=== PATIENT | male | born 1960 | race Caucasian/White ===

== ENCOUNTER 2018-08-10 16:14 | Outpatient (CLI) | payer BC ==
--- NOTE | 2018-08-10 16:54 | RAD ---
Adult bone survey INDICATION: Multiple myeloma FINDINGS: There are multiple punctate regions of lucency involving the skull suspicious for myelomato us involvement. No discrete lucency is seen involving the thoracolumbar spine. There is age-indeterminate superior endplate compression abnormalities of the L1 and L2. No additional fractur es grossly evident. No suspicious osteolytic lesions are seen involving the appendicular skeleton. IMPRESSION: 1. Multiple lucencies involving the calvaria bilaterally suspicious for myelomatous involvement. 2. Age-indeterminate superior endplate compression abnormalities of L1 and L2.
== END 2018-08-10 16:15 | disposition home or self-care (01) ==
LOC: BICRAD 16:14
PROVIDERS: ATTEND Internal Medicine Hematology & Oncology
DX: C90.00 Multiple myeloma not having achieved remission (principal); R93.7 Abnormal findings on diagnostic imaging of other parts of musculoskeletal system
CPT/HCPCS: 36415; 77075; 80053; 82232; 82248; 83615; 83883; 84100; 84165; 84550; 86334

== ENCOUNTER 2018-08-15 08:42 | Day surgery (SDC) | payer BC ==
[2018-08-14 14:16] VITALS: BMI 28.7
[2018-08-15 09:19] LABS: PTT 27.9 SEC (22.9-36.1); Prothrombin Time 13.4 SEC (12.0-14.7)
[2018-08-15 10:05] VITALS: BP 131/89; TEMP 98.8
--- NOTE | 2018-08-15 11:21 | CT ---
CT GUIDED BONE BIOPSY AND BONE MARROW ASPIRATION: HISTORY: Patient with history of myeloma. TECHNIQUE/FINDINGS: Informed consent was obtained from the patient. The right iliac wing was visualized using CT guidance . The overlying skin was prepped and draped in the usual sterile manner. A 1% lidocaine solution was used to anesthetize overlying soft tissues. A small dermatotomy was made. A bone marrow 11-gauge needle was used and the right iliac bone was accessed. Bone marrow aspiration performed. This is followed by bone marrow biopsy. Specimens sent to pathology. Pathology is pending. Postprocedure, no complications encountered. Incidentally noted extensive colonic diverticulosis is present. IMPRESSION: Successful CT guided bone marrow aspiration and bone biopsy. Transcribed Date/Time: 08/15/2018 12:07 PM
== END 2018-08-15 12:05 | disposition home or self-care (01) ==
LOC: CT 08:42
PROVIDERS: ATTEND Internal Medicine Hematology & Oncology
PROC: 079T3ZX Drainage of Bone Marrow, Percutaneous Approach, Diagnostic (ICD-10-PCS; principal; 2018-08-15)
PROC: 07DR3ZX Extraction of Iliac Bone Marrow, Percutaneous Approach, Diagnostic (ICD-10-PCS; principal; 2018-08-15)
DX: C90.00 Multiple myeloma not having achieved remission (principal); K57.30 Diverticulosis of large intestine without perforation or abscess without bleeding; I10 Essential (primary) hypertension; E78.5 Hyperlipidemia, unspecified; Z90.79 Acquired absence of other genital organ(s); Z88.1 Allergy status to other antibiotic agents; Z79.51 Long term (current) use of inhaled steroids; Z79.899 Other long term (current) drug therapy
CPT/HCPCS: 20225; 36415; 77012; 85097; 85610; 85730; 88121; 88184; 88237; 88305; 88311; 88313; 88341; 88342; 88365

== ENCOUNTER 2018-08-18 09:00 | Outpatient (CLI) | payer BC ==
--- NOTE | 2018-08-18 15:42 | PET ---
Exam: PET CT skull to mid thigh COMPARISON: None HISTORY: Multiple myeloma TECHNIQUE: A PET/CT was performed from the skull to the mid thigh after administration of 12.5 millic uries of F-18 FDG. Evaluation was performed on a [employer] workstation. FINDINGS: SKELETON: Numerous hypermetabolic foci are present involving the axial and appendicular skeleton invo lving the right clavicular head, right scapular body, numerous vertebral bodies of the cervical, thoracic, and lumbar spine, notably the C3, T1, T5, T6 and L1 vertebral bodies. The L5 spinous proces s. Involvement of the osseous pelvis within the left ilium and sacrum bilaterally is present. There are multifocal hypermetabolic lesions of the left femur. Dominant hypermetabolic lesion is within the left ilium, SUV maximum 6.5. The above, numerous additional lesions range in SUV from borderline hypermetabolic at 2.8, to 5.[address] images used for attenuation correction show extensive colonic diverticulosis.. IMPRESSION: Extensive osseous hypermetabolic lesions involving the axial and appendicular skeleton, a s described above. Transcribed Date/Time: 08/18/2018 4:33 PM
== END 2018-08-18 09:01 | disposition home or self-care (01) ==
LOC: PET 09:00
PROVIDERS: ATTEND Internal Medicine Hematology & Oncology
DX: C90.00 Multiple myeloma not having achieved remission (principal); M89.9 Disorder of bone, unspecified; R93.7 Abnormal findings on diagnostic imaging of other parts of musculoskeletal system; R93.0 Abnormal findings on diagnostic imaging of skull and head, not elsewhere classified
CPT/HCPCS: 78816; A9552

== ENCOUNTER 2018-11-30 08:27 | Day surgery (SDC) | payer BC ==
[2018-11-30 08:47] LABS: #Basophils 0.1 thou/uL (0.0-0.2); #Eosinphils 0.1 thou/uL (0.0-0.7); #Monocytes 0.9 thou/uL (0.11-0.59); #Neutrophils 5.3 thou/uL (1.40-6.50); %Basophils 0.6 % (0.0-1.0); %Eosinophils 0.7 % (0.0-10.0); %Lymphocytes 32.1 % (21.0-51.0); %Monocytes 9.6 % (0.0-10.0); Hemoglobin 13.5 g/dL (14.0-18.0); Mean Corpuscular HGB CONC 34.8 g/dL (32.0-36.0); Mean Corpuscular Hemoglobin 33.1 pg (27.0-31.0); Mean Corpuscular Volume 95.1 fL (78.0-98.0); Mean Platelet Volume 6.6 fL (7.4-10.4); Platelet Count 276 thou/uL (130-400); RBC Distribution Width 12.8 % (11.5-14.5); Red Blood Cell (RBC) Count 4.07 mill/uL (4.70-6.10); White Blood Cell (WBC) Count 9.2 thou/uL (4.8-10.8)
[2018-11-30 08:52] LABS: PTT 25.5 SEC (22.9-36.1); Prothrombin Time 12.9 SEC (12.0-14.7)
[2018-11-30 09:41] VITALS: BMI 29.1
--- NOTE | 2018-11-30 13:24 | CT ---
CT GUIDED RIGHT ILIAC BONE MARROW ASPIRATION AND BIOPSY: CLINICAL HISTORY: Multiple myeloma. PROCEDURE: The procedure including the risks and complications were explained to the patient, and informed conse nt was obtained. The patient was placed on the CT scan table in the prone position. Conscious sedation for a total [id number] was performed, administered by the radiology nurse, with the patient consistently monitored throughout the duration of the exam in stable condition. Noncontrasted CT images were obtained through the pelvis. An area was marked overlying the right lori c bone, and the area was meticulously prepped and draped in usual sterile fashion. The skin and subcutaneous tissues were infiltrated with buffered 1% lidocaine for local anesthesia. After a small skin incision was made, an 11-gauge needle was advanced and positioning was confirmed w ith axial CT images. Approximately 9 milliliters of bone marrow aspirate was obtained. The needle was then further advanced, and a bone marrow biopsy was performed. The needle was removed, and hemost asis was achieved with direct pressure. The patient tolerated the procedure well and without immediate complication. The patient was transported to radiology nurses holding area for further nando toring prior to discharge. IMPRESSION: Technically successful percutaneous bone marrow aspiration and biopsy. Pathology results are pending.
== END 2018-11-30 12:00 | disposition home or self-care (01) ==
LOC: CT 08:27
PROVIDERS: ATTEND Internal Medicine Hematology & Oncology
PROC: 079T3ZX Drainage of Bone Marrow, Percutaneous Approach, Diagnostic (ICD-10-PCS; principal; 2018-11-30)
PROC: 07DR3ZX Extraction of Iliac Bone Marrow, Percutaneous Approach, Diagnostic (ICD-10-PCS; principal; 2018-11-30)
DX: C90.00 Multiple myeloma not having achieved remission (principal); C79.51 Secondary malignant neoplasm of bone; I10 Essential (primary) hypertension; Z88.1 Allergy status to other antibiotic agents
CPT/HCPCS: 20225; 36415; 77002; 85025; 85097; 85610; 85730; 88184; 88237; 88305; 88311; 88313; 88342; 88365

== ENCOUNTER 2019-04-13 08:43 | Day surgery (SDC) | payer BC ==
[2019-04-12 14:56] VITALS: BMI 26.6
[2019-04-13 09:11] LABS: PTT 28.1 SEC (22.9-36.1); Prothrombin Time 12.9 SEC (12.0-14.7)
[2019-04-13] MEDS ORDERED: Midazolam HCl 2 mg/2 ml Vial ONE (10:00)
[2019-04-13] MEDS ORDERED: Fentanyl 100 MCG/2 ML VIAL ONE (10:00)
[2019-04-13] MEDS ORDERED: Sodium Bicarbonate 2.5 MEQ/5 ML VIAL ONE (10:00)
--- NOTE | 2019-04-13 11:46 | CT ---
CT GUIDED RIGHT ILIAC BONE MARROW ASPIRATION AND BIOPSY: CLINICAL HISTORY: Multiple myeloma post bone marrow transplant in December 2018. Patient also has his tory of prostate cancer. PROCEDURE: The procedure including the risks and complications were explained to the patient, and informed conse nt was obtained. The patient was placed on the CT scan table in the prone position. Conscious sedation was performed with the intravenous administration of fentanyl and Versed for a total [id number], administered by the radiology nurse, with the patient consistently monitored throughout the duration of the exam in stable condition. Noncontrasted CT images were obtained through the pelvis. An area was marked overlying the RIGHT lori c bone, and the area was meticulously prepped and draped in usual sterile fashion. The skin and subcutaneous tissues were infiltrated with buffered 1% lidocaine for local anesthesia. After a small skin incision was made, an 11-gauge needle was advanced and positioning was confirmed w ith axial CT images. Approximately 10 milliliters of bone marrow aspirate was obtained. The needle was then further advanced, and a bone marrow biopsy was performed. The needle was removed, and hemost asis was achieved with direct pressure. The patient tolerated the procedure well and without immediate complication. The patient was transported to radiology nurses holding area for further nando toring prior to discharge. IMPRESSION: Technically successful percutaneous bone marrow aspiration and biopsy. Pathology results are pending.
[2019-04-13 12:33] VITALS: BP 132/82; TEMP 98.4
== END 2019-04-13 12:20 | disposition home or self-care (01) ==
LOC: RAD 08:43
PROVIDERS: ATTEND Internal Medicine Hematology & Oncology
PROC: 07DR3ZX Extraction of Iliac Bone Marrow, Percutaneous Approach, Diagnostic (ICD-10-PCS; principal; 2019-04-13)
DX: C90.00 Multiple myeloma not having achieved remission (principal); I10 Essential (primary) hypertension; E78.5 Hyperlipidemia, unspecified; Z85.46 Personal history of malignant neoplasm of prostate; Z79.899 Other long term (current) drug therapy; Z88.1 Allergy status to other antibiotic agents; Z94.89 Other transplanted organ and tissue status
CPT/HCPCS: 20225; 36415; 77012; 85097; 85610; 85730; 88121; 88184; 88237; 88305; 88311; 88313; J2250; J3010

== ENCOUNTER 2019-04-26 10:20 | Outpatient (CLI) | payer BC ==
--- NOTE | 2019-04-26 13:24 | PET ---
Nuclear medicine FDG PET/CT whole body: (Positron emission tomography and computed tomography) DATE: 04/26/2019 HISTORY: 58-year-old male with multiple myeloma having achieved remission. Restaging, evaluate for response af ter bone marrow transplant. COMPARISON: 08/18/2018 TECHNIQUE: IV injection of F-18 fluorodeoxyglucose (FDG) dose: 16.8 mCi. PET scan and attenuation correction CT performed from vertex of head to bottom of feet. FINDINGS: SUV (standard uptake values) numbers given are maximum SUVs. QCLR used. There are numerous FDG-avid osseous lesions scattered in the axial and appendicular skeleton, have al l resolved. For example, the approximately 1.5 x 2.5 cm osteolytic lesion in the anterior aspect of right iliac w ing previous had SUV of 4.7, currently 1.6. This lesion is still osteolytic. However, many of the previously hypermetabolic lesions that were all osteolytic, have now become osteoblastic, sclerotic, representing treated lesions. There are currently no abnormally FDG avid suspicious skeletal metastatic lesions anywhere in the axi al or appendicular skeleton. A single small focus of SUV 3.1 in the subcutaneous fat of the right arm is consistent with injection site. Otherwise, no suspicious hypermetabolic lesions are identified in the soft tissues of the head, neck, chest, abdomen, pelvis, rest of the upper extremities, and rest of the lower extremities. IMPRESSION: Complete response to therapy.
== END 2019-04-26 10:21 | disposition home or self-care (01) ==
LOC: PET 10:20
PROVIDERS: ATTEND Internal Medicine Hematology & Oncology
DX: C90.00 Multiple myeloma not having achieved remission (principal); C79.51 Secondary malignant neoplasm of bone
CPT/HCPCS: 78816; A9552

== ENCOUNTER 2019-12-27 11:48 | Outpatient (CLI) | payer BC ==
--- NOTE | 2019-12-27 14:16 | PET ---
PET CT: HISTORY: 59-year-old male with multiple myeloma, not having achieved remission. TECHNIQUE: PET scanning with CT attenuation correction was performed from the vertex through the feet following the intravenous administration of 12.8 mCi F18-FDG in the right antecubital fossa. COMPARISON: PET CT dated 04/26/2019. FINDINGS: Numerous new hypermetabolic lesions are seen involving the axilla and the proximal appendicular skele ton. No jero hypermetabolism is seen in the neck, chest, axilla, abdomen, and pelvis, inguinal or poplite al regions. No hypermetabolic pulmonary nodules, liver, adrenal, splenic, or pancreatic lesions are seen. There is physiologic activity in the GI and tracts and brain. The CT scan used for attenuation correction demonstrates no evidence of pleural effusions or ascites. IMPRESSION: Extensive active osseous hypermetabolic lesions in the axial and appendicular skeleton, new since . POS: CLAY
== END 2019-12-27 11:49 | disposition home or self-care (01) ==
LOC: PET 11:48
PROVIDERS: ATTEND Internal Medicine Hematology & Oncology
DX: C90.00 Multiple myeloma not having achieved remission (principal); M89.9 Disorder of bone, unspecified
CPT/HCPCS: 78816; A9552

== ENCOUNTER 2019-12-28 08:41 | Day surgery (SDC) | payer BC ==
[2019-12-28 09:12] LABS: INR-International Normal Ratio 0.9; Prothrombin Time 12.6 sec (12.0-14.7)
[2019-12-28 09:13] LABS: PTT 28.9 sec (22.9-36.1)
[2019-12-28 09:17] LABS: #Eosinphils 0.1 thou/uL (0.0-0.7); #Lymphocytes 0.8 thou/uL (1.20-3.40); #Monocytes 0.5 thou/uL (0.11-0.59); #Neutrophils 2.3 thou/uL (1.40-6.50); %Basophils 1.1 % (0.0-1.0); %Eosinophils 2.1 % (0.0-10.0); %Lymphocytes 21.3 % (21.0-51.0); %Monocytes 12.5 % (0.0-10.0); Hemoglobin 11.1 g/dL (14.0-18.0); Mean Corpuscular HGB CONC 36.1 g/dL (32.0-36.0); Mean Corpuscular Hemoglobin 36.6 pg (27.0-31.0); Mean Platelet Volume 8.3 fL (7.4-10.4); Platelet Count 96 thou/uL (130-400); RBC Distribution Width 13.8 % (11.5-14.5); Red Blood Cell (RBC) Count 3.03 mill/uL (4.70-6.10); White Blood Cell (WBC) Count 3.6 thou/uL (4.8-10.8)
--- NOTE | 2019-12-28 11:37 | CT ---
CT Deep Bone Perc Biopsy History: Myeloma Comparison: Bone marrow biopsy March 2019 Findings: Patient was brought to the CT suite. Questions were answered. Informed consent obtained. Ti meout performed. Patient's left posterior pelvis was prepped and draped in normal sterile fashion. Using CT guidance a fter adequate local anesthesia a total of 10 mL of bone marrow aspirate was removed and a 1 cm 10-gauge core was obtained. Patient tolerated procedure well without complication. 0.5 mg of Versed and 25 mcg of fentanyl was administered to the patient via the supervising nurse. Impression: 1. Technically successful bone marrow biopsy. 2. Incidental note of superior endplate compression deformities of L1 and L2 on the german tutor image. 3. Total moderate sedation supervision of 30 minutes.
--- NOTE | 2020-01-01 11:09 | CT ---
CT Deep Bone Perc Biopsy History: Myeloma Comparison: Bone marrow biopsy March 2019 Findings: Patient was brought to the CT suite. Questions were answered. Informed consent obtained. Ti meout performed. Patient's left posterior pelvis was prepped and draped in normal sterile fashion. Using CT guidance a fter adequate local anesthesia a total of 10 mL of bone marrow aspirate was removed and a 1 cm 10-gauge core was obtained. Patient tolerated procedure well without complication. 0.5 mg of Versed and 25 mcg of fentanyl was administered to the patient via the supervising nurse. Impression: 1. Technically successful bone marrow biopsy. 2. Incidental note of superior endplate compression deformities of L1 and L2 on the electrical prospecting observer image. 3. Total moderate sedation supervision of 30 minutes. Transcribed Date/Time: 01/01/2020 11:08 AM
== END 2019-12-28 11:50 | disposition home or self-care (01) ==
LOC: CT 08:41
PROVIDERS: ATTEND Internal Medicine Hematology & Oncology
PROC: 079T3ZX Drainage of Bone Marrow, Percutaneous Approach, Diagnostic (ICD-10-PCS; principal; 2019-12-28)
PROC: 07DR3ZX Extraction of Iliac Bone Marrow, Percutaneous Approach, Diagnostic (ICD-10-PCS; principal; 2019-12-28)
DX: C90.00 Multiple myeloma not having achieved remission (principal); C79.51 Secondary malignant neoplasm of bone; I10 Essential (primary) hypertension; E78.00 Pure hypercholesterolemia, unspecified; Z88.1 Allergy status to other antibiotic agents; Z85.46 Personal history of malignant neoplasm of prostate
CPT/HCPCS: 20225; 77002; 85025; 85097; 85610; 85730; 88121; 88184; 88237; 88305; 88311; 88313

== ENCOUNTER 2020-02-20 08:51 | Day surgery (SDC) | payer BC ==
[2020-02-20] MEDS ORDERED: Acetaminophen 500 MG TAB PO PRN (09:03)
[2020-02-20] MEDS ORDERED: diphenhydrAMINE 25 MG CAP PO PRN (09:03)
[2020-02-20 14:20] VITALS: BP 125/82; TEMP 98
== END 2020-02-20 14:21 | disposition home or self-care (01) ==
LOC: ONC/OP 08:51
PROVIDERS: ATTEND Internal Medicine Hematology & Oncology
PROC: 30233N1 Transfusion of Nonautologous Red Blood Cells into Peripheral Vein, Percutaneous Approach (ICD-10-PCS; principal; 2020-02-20)
DX: D64.9 Anemia, unspecified (principal); Z88.1 Allergy status to other antibiotic agents
CPT/HCPCS: 36430; 86850; 86870; 86900; 86901; 86922; P9016; Q0163

== ENCOUNTER 2020-02-25 12:27 | Inpatient (IN) | payer BC ==
[2020-02-25] MEDS ORDERED: Ondansetron PF 4 MG/2 ML Vial ONE (13:00)
[2020-02-25] MEDS ORDERED: Ibuprofen 200 MG TAB ONE (13:00)
[2020-02-25] MEDS ORDERED: Acetaminophen 500 MG TAB ONE (13:00)
[2020-02-25 13:28] LABS: Mean Corpuscular HGB CONC 34.4 g/dL (32.0-36.0); Mean Corpuscular Hemoglobin 34.4 pg (27.0-31.0); Mean Platelet Volume 9.7 fL (7.4-10.4); Platelet Count 48 thou/uL (130-400); RBC Distribution Width 15.8 % (11.5-14.5); Red Blood Cell (RBC) Count 2.33 mill/uL (4.70-6.10); White Blood Cell (WBC) Count 1.2 thou/uL (4.8-10.8)
[2020-02-25 13:47] LABS: Anisocytosis SLIGHT = 6-15 cells (100X) (0-5/hpf); Band 8 % (5-11); Eosinophils 16 % (0-10); Lymphocytes 29 % (21-51); MDiff Complete? YES; Macrocytosis SLIGHT = 6-15 cells (100X) (0-5/hpf); Monocytes 8 % (0-10); Neutrophil 39 % (42-75); Platelet Morphology Comment Appears Decreased; Polychromasia SLIGHT = 2-3 cells (100X) (0-2/hpf); Reflex for Review?? YES
[2020-02-25] MEDS ORDERED: Fentanyl 100 MCG/2 ML VIAL ONE (13:52)
[2020-02-25 13:53] LABS: ALT (SGPT) 102 U/L (8-55); AST (SGOT) 58 U/L (5-34); Albumin 3.4 g/dL (3.4-4.8); Alkaline Phosphatase 128 U/L (40-110); Anion Gap 17 mmol/L (10-20); BUN (Urea Nitrogen) 12 mg/dL (8.4-25.7); Bilirubin, Total 0.6 mg/dL (0.2-1.2); Calc. Creatinine Clearance 0 mL/min (70-130); Calcium 8.4 mg/dL (7.8-10.44); Carbon Dioxide 19 mmol/L (23-31); Chloride 100 mmol/L (98-107); Globulin 4.5 g/dL (2.4-3.5); Glucose 130 mg/dL (80-115); Potassium 4.1 mmol/L (3.5-5.1); Protein, Total 7.9 g/dL (5.8-8.1); Sodium 132 mmol/L (136-145)
--- NOTE | 2020-02-25 14:05 | RAD ---
EXAM: CHEST ONE VIEW HISTORY: Fever and shortness of breath. COMPARISON: None FINDINGS: Cardiac silhouette is magnified by projection but does appear at the upper limits normal to borderlin e enlarged. Pulmonary vasculature is within normal limits. The lungs are clear. The osseous structures are intact. IMPRESSION: 1. No acute cardiopulmonary process. 2. Cardiac silhouette is at the upper limits of normal to borderline enlarged.
[2020-02-25 14:10] LABS: Bacteria/HPF None Seen HPF (None Seen); Bilirubin Negative (Negative); Blood, Urine Negative (Negative); Clarity Clear (Clear); Glucose, Urine (Dipstick) Normal (Negative); Ketone, Urine Negative (Negative); Leukocyte Negative Leu/uL (Negative); Mucous/LPF 2+ LPF (<2+); Nitrite Negative (Negative); Protein, Urine (Dipstick) 50 mg/dL (Neg-Trace); RBC/HPF 0-3 HPF (0-3); Specific Gravity, Urine 1.031 (1.002-1.036); Squamous Epithelial 0-3 HPF (0-3); Urobilinogen Normal mg/dL (Less than 2); WBC/HPF 0-3 HPF (0-3); pH, Urine 5.5 (5.0-9.0)
[2020-02-25] MEDS ORDERED: Cefepime 2 GM VIAL ONE (14:38)
[2020-02-25 15:16] LABS: SARS-CoV-2 NAA Rapid Test Not Detected (NotDetected)
[2020-02-25] MEDS ORDERED: Senokot S 8.6-50 MG TAB PO PRN ×2 (16:44→16:53)
[2020-02-25] MEDS ORDERED: Ondansetron PF 4 MG/2 ML Vial IVP PRN (16:44)
[2020-02-25] MEDS ORDERED: Ondansetron ODT 4 MG TAB PO PRN (16:44)
[2020-02-25] MEDS ORDERED: Acetaminophen 650 MG Suppository PR PRN (16:44)
[2020-02-25] MEDS ORDERED: HYDROcodone/Acetaminophen 7.5/325 mg Tablet PO PRN ×2 (16:44)
[2020-02-25] MEDS ORDERED: Guaifenesin DM 100-10/5 ML UDCUP PO PRN (16:44)
[2020-02-25 16:58] LABS: Lactic Acid 1.8 mmol/L (0.5-2.2)
--- NOTE | 2020-02-25 18:05 | HP ---
PRIMARY CARE PHYSICIAN: Dr. Damon. PRIMARY ONCOLOGIST: Dr. Jean. CHIEF COMPLAINT: Fatigue. HISTORY OF PRESENT ILLNESS: This is a 59-year-old white male with a known history of multiple myeloma, on chemotherapy. He switched chemotherapy agents about 2 months ago and has felt very fatigued ever since. He says this has gotten worse probably over the last 1 to 2 weeks. He has had decreased appetite over the last week. He has not been able to eat or drink much mostly due to loss of appetite, not feeling thirsty, also has not been able to drink his typical beer or mixed drink daily. He is not certain if he is having fevers at home, was not really feeling febrile, but was found to have a temperature of 101 in the emergency room. The patient did go to Dr. Jean's office today. Due to his severe fatigue and lab results in the clinic, he was sent over here to the emergency room for evaluation. Here, he was found to be febrile and neutropenic. No specific source identified. The patient had to have blood cultures drawn and was started on cefepime and vancomycin. He was given Tylenol and now feels significantly better with his temperature having returned to normal. REVIEW OF SYSTEMS: CONSTITUTIONAL: See HPI. EYES: He has some chronic blurred vision from his Lyrica but no new changes. No double vision. ENT: No congestion, drainage, or sore throat. CARDIOVASCULAR: No chest pain. No palpitations or racing heart. He does have a little bit of dyspnea on exertion from his anemia from the chemotherapy, but that is not new. PULMONARY: No coughing. No shortness of breath at rest. No wheezing. CARDIOVASCULAR: No abdominal pain. No nausea or vomiting, but he has had decreased appetite. No diarrhea. He does get constipated regularly and has to take 3 stool softeners nightly while on his morphine to keep a regular bowel movement. GENITOURINARY: No dysuria or hematuria. MUSCULOSKELETAL: No specific muscle aches or joint pains. NEUROLOGIC: No numbness, tingling, or focal weakness. Just generalized weakness. PAST MEDICAL HISTORY: 1. Multiple myeloma, sees Dr. Jean and has been on chemotherapy for it. 2. Hypothyroidism. 3. Hyperlipidemia. 4. Possible high blood pressure. He is on a low dose of lisinopril. 5. Chronic pain from the multiple myeloma, on chronic opiate therapy. PAST SURGICAL HISTORY: Robotic prostatectomy in 2013. SOCIAL HISTORY: No tobacco or illicit drug use. The patient typically drinks every day. 1 to 3 drinks of either beer or whiskey or wine. Has not done this for over a week. The patient is a full code. Should he be incapacitated, his would be his medical decision maker. Her name is Nichelle Newman FAMILY HISTORY: Father at a younger age of a heart valve failure. ALLERGIES: NITROFURANTOIN. CURRENT MEDICATIONS: 1. Lyrica 300 mg twice a day. 2. Valtrex 500 mg twice a day. 3. Singulair 10 mg daily. 4. Lisinopril 10 mg daily. 5. Levothyroxine 75 mcg daily. 6. Singulair 10 mg daily. 7. Crestor 20 mg daily. 8. Morphine extended release 30 mg twice a day. 9. Wftd-coa-zrgbboi laxative 3 tablets at night. PHYSICAL EXAMINATION: VITAL SIGNS: Blood pressure 100/52, pulse 73, respirations 20, temperature 98.8, O2 saturation 99% on room air. GENERAL: This is a well-developed, well-nourished white male, in no acute distress. HEENT EXAM: Pupils are equal, round, and reactive to light. Oropharynx is clear without lesions, erythema, or exudate. NECK: Supple. No lymphadenopathy. No thyroid nodules or enlargement. No JVD. HEART: Regular rate and rhythm. No murmurs, rubs, or gallops. LUNGS: Clear to auscultation bilaterally. No wheezes, crackles, or rhonchi. ABDOMEN: Soft, nontender to palpation. Normoactive bowel sounds. No hepatosplenomegaly or other masses. EXTREMITIES: No clubbing, cyanosis, or edema. SKIN: No rashes or other lesions noted. NEUROLOGIC: The patient moves all extremities equally. No facial droop. PSYCHIATRIC: Alert and oriented x3. Normal mood and affect. LABORATORY DATA: White blood cell count 1.2 with 39% neutrophils, 8% bands, hemoglobin 8.0, hematocrit 23.2, platelet count 48,000. Complete metabolic panel is notable for sodium of 132, carbon dioxide of 19, and glucose of 130, AST of 58, ALT of 102, alkaline phosphatase of 128. The rest is normal. Lactic acid was initially 3.0, down to 1.8 after fluids in the emergency room. Urinalysis was negative for infection. The rapid influenza A and influenza B and COVID PCR were all negative. Chest x-ray: I did review the chest x-ray done in the emergency room along with the radiologist's report, clear lung guillen, no acute cardiopulmonary process. EKG done in the emergency room shows normal sinus rhythm with no significant ST-segment changes. Normal EKG. ASSESSMENT: 1. Neutropenic fever. The patient had blood cultures and urine culture done in the emergency room and has been started on broad-spectrum antibiotics. We will continue cefepime and give vancomycin while awaiting culture results. We will consult Dr. Jean in the morning. 2. Multiple myeloma, on chemotherapy. We will continue his morphine for pain control. 3. HTN. We will hold the patient's lisinopril due to below normal blood pressure right now, and we will monitor closely. 4. Hypothyroidism. Resume the patient's levothyroxine. 5. Hyperlipidemia. We will resume the patient's statin. 6. Deep venous thrombosis prophylaxis. We will put the patient on sequential compression devices while in bed. We will hold on Lovenox due to low platelet count. 7. Gastrointestinal prophylaxis. We will put the patient on Pepcid twice a day. CODE STATUS: The patient is a full code. Should he be incapacitated, his would be his medical decision maker. Job ID: [id number] [facility]
[2020-02-25] MEDS: valACYclovir 500 MG TAB PO SCH (20:35)
[2020-02-25] MEDS: Vancomycin HCl 1.75 GM in Sodium Chloride 0.9% 500 ML IVPB SCH (20:35)
[2020-02-25] MEDS: Pregabalin 75 MG CAP PO SCH (20:35)
[2020-02-25] MEDS: Rosuvastatin 20 MG TAB PO SCH (20:36)
[2020-02-25] MEDS: Famotidine 20 MG TAB PO SCH (20:36)
[2020-02-25] MEDS: Morphine ER 30 MG TAB PO SCH (20:36)
[2020-02-25] MEDS: Senokot S 8.6-50 MG TAB PO SCH (20:37)
[2020-02-25] MEDS ORDERED: valACYclovir 500 MG TAB PO SCH (21:00)
[2020-02-25] MEDS ORDERED: Vancomycin HCl 1 GM in Sodium Chloride 0.9% 250 ML 250 ML IVPB SCH (21:00)
[2020-02-26] MEDS: Acetaminophen 325 MG TAB PO PRN ×2 (03:55→17:23)
[2020-02-26] MEDS: Cefepime 2 GM in Sodium Chloride 0.9% 100 ML IVPB SCH ×2 (03:55→15:58)
[2020-02-26] MEDS: Levothyroxine Sodium 75 MCG TAB PO SCH (05:02)
[2020-02-26 05:08] LABS: White Blood Cell (WBC) Count 0.9 thou/uL (4.8-10.8)
[2020-02-26 05:14] LABS: Anion Gap 12 mmol/L (10-20); BUN (Urea Nitrogen) 9 mg/dL (8.4-25.7); Calc. Creatinine Clearance 136 mL/min (70-130); Calcium 7.6 mg/dL (7.8-10.44); Carbon Dioxide 22 mmol/L (23-31); Chloride 105 mmol/L (98-107); Glucose 99 mg/dL (80-115); Potassium 3.9 mmol/L (3.5-5.1); Sodium 135 mmol/L (136-145)
[2020-02-26 05:44] LABS: Hemoglobin 6.7 g/dL (14.0-18.0); Lymphocytes 56 % (21-51); MDiff Complete? YES; Mean Corpuscular HGB CONC 34.6 g/dL (32.0-36.0); Mean Corpuscular Hemoglobin 35.5 pg (27.0-31.0); Mean Platelet Volume 9.7 fL (7.4-10.4); Monocytes 12 % (0-10); Neutrophil 32 % (42-75); Platelet Count 38 thou/uL (130-400); Platelet Morphology Comment Appears Decreased; RBC Distribution Width 15.9 % (11.5-14.5); Red Blood Cell (RBC) Count 1.88 mill/uL (4.70-6.10)
--- NOTE | 2020-02-26 07:32 | PDOC.HOSPP ---
- Subjective Encounter Date: 02/26/20 Encounter Time: 10:00 Subjective: Patient feeling much better today. Had a low grade fever this AM. Fatigue improved. Eating better. at bedside. - Objective Vital Signs & Weight: Vital Signs (12 hours) Temp Pulse Resp BP Pulse Ox 02/26/20 05:03 99.1 F 02/26/20 04:00 100.4 F H 70 16 103/56 L 98 02/26/20 03:06 98 02/25/20 23:05 98.7 F 74 18 135/62 97 02/25/20 20:00 99.2 F 73 16 111/59 L 98 Weight Weight 180 lb I&O: 02/25/20 02/26/20 02/27/20 06:59 06:59 06:59 Intake Total 1120 Balance 1120 Result Diagrams: 02/26/20 04:19 02/26/20 04:19 Hospitalist ROS - Review of Systems Constitutional: reports: fever. denies: chills Respiratory: denies: cough, shortness of breath Cardiovascular: denies: chest pain, palpitations Gastrointestinal: denies: nausea, vomiting, abdominal pain Genitourinary: denies: dysuria, hematuria Musculoskeletal: denies: neck pain, back pain - Medication Medications: Active Medications Generic Name Dose Route Start Last Admin Trade Name Castilloq PRN Reason Stop Dose Admin Acetaminophen 650 mg 02/25/20 16:44 02/26/20 03:55 Acetaminophen 325 Mg Tab PO 650 mg Q4H PRN Administration Headache/Fever/Mild Pain (1-3) Famotidine 20 mg 02/25/20 21:00 02/25/20 20:36 Famotidine 20 Mg Tab PO 20 mg BID AMAURI Administration Cefepime HCl 2 gm/ Sodium 100 mls @ 200 mls/hr 02/26/20 03:00 02/26/20 03:55 Chloride IVPB 100 mls 0300,1500 AMAURI Administration Vancomycin HCl 1.75 gm/ Sodium 500 mls @ 250 mls/hr 02/25/20 20:00 02/25/20 20:35 Chloride IVPB 500 mls 0800,2000 AMAURI Administration Levothyroxine Sodium 75 mcg 02/26/20 06:00 02/26/20 05:02 Levothyroxine Sodium 75 Mcg Tab PO 75 mcg 0600 AMAURI Administration Morphine Sulfate 30 mg 02/25/20 21:00 02/25/20 20:36 Morphine Er 30 Mg Tab PO 30 mg Q12HR AMAURI Administration Pregabalin 300 mg 02/25/20 21:00 02/25/20 20:35 Pregabalin 75 Mg Cap PO 300 mg BID AMAURI Administration Rosuvastatin Calcium 20 mg 02/25/20 21:00 02/25/20 20:36 Rosuvastatin 20 Mg Tab PO 20 mg HS AMAURI Administration Senna/Docusate Sodium 3 tab 02/25/20 21:00 02/25/20 20:37 Senokot S 8.6-50 Mg Tab PO 3 tab HS AMAURI Administration Valacyclovir HCl 500 mg 02/25/20 21:00 02/25/20 20:35 Valacyclovir 500 Mg Tab PO 500 mg BID AMAURI Administration - Exam General Appearance: NAD, awake alert ENT: moist mucosa Heart: RRR, no murmur, no gallops, no rubs Respiratory: CTAB, no wheezes, no rales, no ronchi Gastrointestinal: soft, non-tender, non-distended, normal bowel sounds Extremities: no edema Psychiatric: normal affect, normal behavior, A&O x 3 Hosp A/P (1) Neutropenic fever Code(s): D70.9 - NEUTROPENIA, UNSPECIFIED; R50.81 - FEVER PRESENTING WITH COND ITIONS CLASSIFIED ELSEWHERE Status: Acute (2) Sepsis Code(s): A41.9 - SEPSIS, UNSPECIFIED ORGANISM Status: Acute (3) Multiple myeloma Code(s): C90.00 - MULTIPLE MYELOMA NOT HAVING ACHIEVED REMISSION Status: Chronic Qualifiers: Multiple myeloma remission status: not in remission Qualified Code(s): C90.00 - Multiple myeloma not having achieved remission (4) Pancytopenia due to antineoplastic chemotherapy Code(s): D61.810 - ANTINEOPLASTIC CHEMOTHERAPY INDUCED PANCYTOPENIA; T45.1X5A - ADVERSE EFFECT OF ANTINEOPLASTIC AND IMMUNOSUP DRUGS, INIT Status: Acute (5) HTN (hypertension) Code(s): I10 - ESSENTIAL (PRIMARY) HYPERTENSION Status: Chronic (6) Hypothyroidism Code(s): E03.9 - HYPOTHYROIDISM, UNSPECIFIED Status: Chronic (7) HLD (hyperlipidemia) Code(s): E78.5 - HYPERLIPIDEMIA, UNSPECIFIED Status: Chronic - Plan Patient admitted with neutropenic fever and sepsis syndrome while on chemotherapy for multiple myeloma. He is on Cefepime and Vanc. since 02/25/2020. Dr. Jean consulted this morning. Neutropenic precautions. Holding pharmacologic DVT prophylaxis due to thrombocytopenia. Anemia worse this morning, getting 1 unit PRBC transfusion. GI proph: Pepcid
[2020-02-26] MEDS: Morphine ER 30 MG TAB PO SCH ×2 (08:40→20:33)
[2020-02-26] MEDS: Vancomycin HCl 1.75 GM in Sodium Chloride 0.9% 500 ML IVPB SCH ×2 (08:57→21:45)
[2020-02-26] MEDS: valACYclovir 500 MG TAB PO SCH ×2 (08:58→20:33)
[2020-02-26] MEDS: Famotidine 20 MG TAB PO SCH ×3 (08:58→20:39)
[2020-02-26] MEDS: Montelukast Sodium 10 mg Tablet PO SCH (08:58)
[2020-02-26] MEDS: Pregabalin 75 MG CAP PO SCH ×2 (08:59→20:33)
[2020-02-26] MEDS ORDERED: FLU VACC QS2020-21(6MOS UP)/PF 60 MCG/0.5 ML SYRINGE IM ONE (09:00)
[2020-02-26] MEDS ORDERED: Prevnar 13-Val Conj/PF 0.5 ML SYRINGE IM ONE (09:00)
[2020-02-26] MEDS ORDERED: Lisinopril 10 MG TAB PO SCH (09:00)
--- NOTE | 2020-02-26 16:45 | CON ---
DATE OF CONSULTATION: REASON FOR CONSULTATION: Multiple myeloma, neutropenic fever. HISTORY OF PRESENT ILLNESS: Mr. Newman is a 59-year-old gentleman who has IgG kappa multiple myeloma. He was diagnosed in 07/2018. He had recent progression in December of this year and was started on Pomalyst and weekly Darzalex. He presented to the clinic yesterday for treatment. He had fatigue, chills, and shakes. He was neutropenic. He had subjective fever, so he was brought to the emergency room for further workup. In the emergency room, he had a temperature of 101. His chest x-ray was unremarkable. His COVID and influenza were negative. He has been started on empiric antibiotics and IV fluids. His hemoglobin has dropped overnight to 6.7. We await blood transfusion. PAST MEDICAL HISTORY: 1. IgG kappa myeloma. 2. History of prostate cancer with prostatectomy. 3. Hypertension. 4. High cholesterol. PAST SURGICAL HISTORY: 1. Prostatectomy. 2. Bone marrow biopsy. 3. Stem cell transplant. FAMILY HISTORY: Noncontributory. SOCIAL HISTORY: , lives with his spouse. ALLERGIES: TO MACROBID. CURRENT MEDICATIONS: 1. Tylenol. 2. [place]. 3. Cefepime. 4. Pepcid. 5. Robitussin. 6. Synthroid. 7. Singulair. 8. MS Contin. 9. Zofran. 10. Lyrica. 11. Crestor. 12. Senokot. 13. Valtrex. 14. Vancomycin. REVIEW OF SYSTEMS: Positive for fever and fatigue. No chest pain, shortness of breath, abdominal pain, edema, or bleeding. PHYSICAL EXAMINATION: VITAL SIGNS: Temperature 99.3, pulse is 82, respiratory rate 18, BP is 114/62, and he is 99% on room air. GENERAL: This is an ill-appearing male, in no acute distress. HEENT: Normocephalic and atraumatic. Pupils equal and reactive to light. NECK: Supple. CV: Regular rate and rhythm. LUNGS: Clear. ABDOMEN: Soft and nontender. Bowel sounds are positive. EXTREMITIES: No clubbing or cyanosis. SKIN: No rash. HEMATOLOGIC: No petechiae or purpura. NEUROLOGIC: Nonfocal. PERTINENT LABORATORY DATA AND X-RAYS: Current WBCs 0.9, hemoglobin 6.7, hematocrit 19.3, and platelet count 38,000. He has 32% neutrophils, 56% lymphocytes, and 12% monocytes. Sodium 135, potassium 3.9, chloride 105, CO2 is 22, BUN is 9, creatinine 0.66, lactic acid 1.8, calcium 7.6, bilirubin 0.6, AST is 58, ALT is 102, alkaline phosphatase is 128, serum total protein 7.9, albumin 3.4, and globulin 4.5. Urine is negative. Flu and COVID PCR negative. Radiology per HPI. ASSESSMENT: 1. Neutropenic fever. 2. Relapsed myeloma after a stem cell transplant in 02/2019. DISCUSSION: The patient is on empiric antibiotics and states he is actually feeling better. He has been up and walking in the hallway and able to eat more. We await blood transfusion. His antibodies in his blood secondary to Darzalex should arrive today and he will be transfused 2 units. We will check CBC in the morning. His pancytopenia is likely secondary to his relapsed myeloma as well as his chemotherapy. He should recover over the next several days. Case has been discussed with Dr. Jean and we will follow his hospital course. Thank you for the consult. Job ID: [id number]
[2020-02-26] MEDS: Rosuvastatin 20 MG TAB PO SCH (20:33)
[2020-02-26] MEDS: Senokot S 8.6-50 MG TAB PO SCH (20:33)
[2020-02-27 03:46] LABS: #Eosinphils 0.2 thou/uL (0.0-0.7); #Lymphocytes 0.4 thou/uL (1.20-3.40); #Monocytes 0.1 thou/uL (0.11-0.59); #Neutrophils 0.3 thou/uL (1.40-6.50); %Lymphocytes 38.5 % (21.0-51.0); %Monocytes 8.8 % (0.0-10.0); %Neutrophils 30.8 % (42.0-75.0); Hemoglobin 7.3 g/dL (14.0-18.0); Mean Corpuscular HGB CONC 33.5 g/dL (32.0-36.0); Mean Corpuscular Hemoglobin 33.7 pg (27.0-31.0); Mean Platelet Volume 8.8 fL (7.4-10.4); Platelet Count 40 thou/uL (130-400); RBC Distribution Width 15.6 % (11.5-14.5); Red Blood Cell (RBC) Count 2.16 mill/uL (4.70-6.10)
[2020-02-27 04:00] LABS: Anion Gap 11 mmol/L (10-20); BUN (Urea Nitrogen) 9 mg/dL (8.4-25.7); Calc. Creatinine Clearance 138 mL/min (70-130); Carbon Dioxide 23 mmol/L (23-31); Chloride 106 mmol/L (98-107); Glucose 92 mg/dL (80-115); Potassium 4.2 mmol/L (3.5-5.1); Sodium 136 mmol/L (136-145)
[2020-02-27] MEDS: Cefepime 2 GM in Sodium Chloride 0.9% 100 ML IVPB SCH ×2 (04:05→15:58)
[2020-02-27] MEDS: Acetaminophen 325 MG TAB PO PRN (04:05)
[2020-02-27] MEDS: Levothyroxine Sodium 75 MCG TAB PO SCH (05:04)
[2020-02-27 08:02] LABS: Vancomycin, Trough 11.4 ug/mL
--- NOTE | 2020-02-27 08:13 | PDOC.MOPN ---
Interval History: Pt feeling better today. No more N/V and has a good appetite. Walked up and down the bowling today. - Vital Signs Vital Signs: Vital Signs (12 hours) Temp Pulse Resp BP Pulse Ox 02/27/20 04:00 98.5 F 02/27/20 00:00 98.6 F 02/26/20 21:42 98 F 72 16 112/58 L 97 Weight Weight 180 lb - Physical Exam General: Alert, Oriented x3, Cooperative HEENT: EOMI Lungs: Normal air movement Cardiovascular: Regular rate Neurological: Cranial nerves 3-12 NL Psych/Mental Status: Mood NL - Labs Result Diagrams: 02/27/20 03:33 02/27/20 03:32 Lab results: Laboratory Results - last 24 hr 02/27/20 07:24: Vancomycin Trough 11.4 02/27/20 03:33: WBC 1.0 L, RBC 2.16 L, Hgb 7.3 L, Hct 21.8 L, MCV 101.0 H, MCH 33.7 H, MCHC 33.5, RDW 15.6 H, Plt Count 40 L, MPV 8.8, Neutrophils % 30.8 L, Neutrophils % (Manual) Not Reportable, Lymphocytes % 38.5, Monocytes % 8.8, Eosinophils % 22.0 H, Basophils % 0.0, Neutrophils # 0.3 L, Lymphocytes # 0.4 L, Monocytes # 0.1 L, Eosinophils # 0.2, Basophils # 0.0 02/27/20 03:32: Sodium 136, Potassium 4.2, Chloride 106, Carbon Dioxide 23, Anion Gap 11, BUN 9, Creatinine 0.65 L, Estimated GFR (MDRD) Greater than 90, Glucose 92, Calcium 8.0 02/26/20 08:43: Blood Type O POSITIVE, Antibody Screen POSITIVE H, Antibody Identification Cancelled, Crossmatch See Detail 02/25/20 13:13: Smear Path Review A/P - Problem (1) Neutropenic fever Current Visit: Yes Code(s): D70.9 - NEUTROPENIA, UNSPECIFIED; R50.81 - FEVER PRESENTING WITH CONDITIONS CLASSIFIED ELSEWHERE Status: Acute (2) Pancytopenia due to antineoplastic chemotherapy Current Visit: Yes Code(s): D61.810 - ANTINEOPLASTIC CHEMOTHERAPY INDUCED PANCYTOPENIA; T45.1X5A - ADVERSE EFFECT OF ANTINEOPLASTIC AND IMMUNOSUP DRUGS, INIT Status: Acute (3) Multiple myeloma Current Visit: Yes Code(s): C90.00 - MULTIPLE MYELOMA NOT HAVING ACHIEVED REMISSION Status: Chronic Qualifiers: Multiple myeloma remission status: not in remission Qualified Code(s): C90.00 - Multiple myeloma not having achieved remission - Plan Plan: Continue antibiotics f/u BCx Ok for discharge once afebrile x 24-48 hr and ANC 750-1000 I discussed dose reduction or holding of Pomalyst after discharge due to ongoing pancytopenia complications and try to maintain darzalex at current dose. Advised pt to hold pomalyst after discharge until I advise him otherwise.
[2020-02-27] MEDS: Vancomycin HCl 1.75 GM in Sodium Chloride 0.9% 500 ML IVPB SCH (08:42)
[2020-02-27] MEDS: Pregabalin 75 MG CAP PO SCH ×2 (09:06→20:24)
[2020-02-27] MEDS: Montelukast Sodium 10 mg Tablet PO SCH (09:07)
[2020-02-27] MEDS: valACYclovir 500 MG TAB PO SCH ×2 (09:07→20:25)
[2020-02-27] MEDS: Morphine ER 30 MG TAB PO SCH ×2 (09:07→20:23)
[2020-02-27] MEDS: Famotidine 20 MG TAB PO SCH ×2 (09:08→20:23)
[2020-02-27] MEDS ORDERED: Vancomycin HCl 1.25 GM in Sodium Chloride 0.9% 250 ML 250 ML IVPB SCH (10:00)
[2020-02-27 11:48] LABS: ALT (SGPT) 69 U/L (8-55); AST (SGOT) 27 U/L (5-34); Albumin 2.8 g/dL (3.4-4.8); Alkaline Phosphatase 95 U/L (40-110); Bilirubin, Direct 0.3 mg/dL (0.1-0.3); Bilirubin, Total 0.6 mg/dL (0.2-1.2); Protein, Total 6.3 g/dL (5.8-8.1)
[2020-02-27] MEDS: Vancomycin HCl 1.25 GM in Sodium Chloride 0.9% 250 ML 250 ML IVPB SCH ×2 (13:39→20:26)
--- NOTE | 2020-02-27 18:07 | PDOC.HOSPP ---
- Subjective Encounter Date: 02/27/20 Encounter Time: 07:00 Subjective: Patient seen for follow-up regarding neutropenic fever. He denies any chest pain. He denies any cough or urinary symptoms. He denies any vomiting or diarrhea. - Objective Vital Signs & Weight: Vital Signs (12 hours) Temp Pulse Resp BP Pulse Ox 02/27/20 16:00 99.8 F H 81 18 105/63 99 02/27/20 12:00 98.6 F 02/27/20 08:00 98.3 F 70 18 105/61 96 Weight Weight 180 lb I&O: 02/26/20 02/27/20 02/28/20 06:59 06:59 06:59 Intake Total 1120 1320 Balance 1120 1320 Result Diagrams: 02/27/20 03:33 02/27/20 03:32 Additional Labs: I reviewed patient's labs and MAR Hospitalist ROS - Review of Systems Cardiovascular: denies: chest pain, palpitations, orthopnea, paroxysmal noc. dyspnea, edema, light headedness Gastrointestinal: denies: nausea, vomiting, abdominal pain, diarrhea, constipation, melena, hematochezia - Medication Medications: Active Medications Generic Name Dose Route Start Last Admin Trade Name Freq PRN Reason Stop Dose Admin Acetaminophen 650 mg 02/25/20 16:44 02/27/20 04:05 Acetaminophen 325 Mg Tab PO 650 mg Q4H PRN Administration Headache/Fever/Mild Pain (1-3) Famotidine 20 mg 02/25/20 21:00 02/27/20 09:08 Famotidine 20 Mg Tab PO 20 mg BID AMAURI Administration Cefepime HCl 2 gm/ Sodium 100 mls @ 200 mls/hr 02/26/20 03:00 02/27/20 15:58 Chloride IVPB 100 mls 0300,1500 AMAURI Administration Vancomycin HCl 1.25 gm/ Sodium 250 mls @ 166.667 mls/hr 02/27/20 13:00 02/27/20 13:39 Chloride IVPB 250 mls 0500,1300,2100 AMAURI Administration Levothyroxine Sodium 75 mcg 02/26/20 06:00 02/27/20 05:04 Levothyroxine Sodium 75 Mcg Tab PO 75 mcg 0600 AMAURI Administration Montelukast Sodium 10 mg 02/26/20 09:00 02/27/20 09:07 Montelukast Sodium 10 Mg Tablet PO 10 mg DAILY AMAURI Administration Morphine Sulfate 30 mg 02/25/20 21:00 02/27/20 09:07 Morphine Er 30 Mg Tab PO 30 mg Q12HR AMAURI Administration Pregabalin 300 mg 02/25/20 21:00 02/27/20 09:06 Pregabalin 75 Mg Cap PO 300 mg BID AMAURI Administration Rosuvastatin Calcium 20 mg 02/25/20 21:00 02/26/20 20:33 Rosuvastatin 20 Mg Tab PO 20 mg HS AMAURI Administration Senna/Docusate Sodium 3 tab 02/25/20 21:00 02/26/20 20:33 Senokot S 8.6-50 Mg Tab PO 3 tab HS AMAURI Administration Sodium Chloride 10 ml 02/26/20 09:00 02/27/20 09:08 Flush - Normal Saline 10 Ml Syringe IVF 10 ml Q12HR AMAURI Administration Valacyclovir HCl 500 mg 02/25/20 21:00 02/27/20 09:07 Valacyclovir 500 Mg Tab PO 500 mg BID AMAURI Administration - Exam General Appearance: awake alert Eye: anicteric sclera ENT: moist mucosa Neck: supple Heart: RRR Respiratory: CTAB, no wheezes Gastrointestinal: soft, non-tender Extremities: no edema Skin: no rashes Psychiatric: normal affect, normal behavior Hosp A/P - Plan Hosp A/P (1) Neutropenic fever Code(s): D70.9 - NEUTROPENIA, UNSPECIFIED; R50.81 - FEVER PRESENTING WITH CONDITIONS CLASSIFIED ELSEWHERE Status: Acute (2) Sepsis Code(s): A41.9 - SEPSIS, UNSPECIFIED ORGANISM Status: Acute (3) Pancytopenia due to antineoplastic chemotherapy Code(s): D61.810 - ANTINEOPLASTIC CHEMOTHERAPY INDUCED PANCYTOPENIA; T45.1X5A - ADVERSE EFFECT OF ANTINEOPLASTIC AND IMMUNOSUP DRUGS, INIT Status: Acute (4) Multiple myeloma Code(s): C90.00 - MULTIPLE MYELOMA NOT HAVING ACHIEVED REMISSION Status: Chronic Qualifiers: Multiple myeloma remission status: not in remission Qualified Code(s): C90.00 - Multiple myeloma not having achieved remission (5) Hypothyroidism Code(s): E03.9 - HYPOTHYROIDISM, UNSPECIFIED Status: Chronic (6) HTN (hypertension) Code(s): I10 - ESSENTIAL (PRIMARY) HYPERTENSION Status: Chronic (7) HLD (hyperlipidemia) Code(s): E78.5 - HYPERLIPIDEMIA, UNSPECIFIED Status: Chronic - Plan Continue IV cefepime and vancomycin, follow cultures. Follow daily blood counts. Neutropenic precautions. Holding pharmacologic DVT prophylaxis due to thrombocytopenia. Patient received packed RBC transfusion yesterday. GI proph: Pepcid
[2020-02-27] MEDS: Senokot S 8.6-50 MG TAB PO SCH (20:22)
[2020-02-27] MEDS: Rosuvastatin 20 MG TAB PO SCH (20:24)
[2020-02-28] MEDS: Cefepime 2 GM in Sodium Chloride 0.9% 100 ML IVPB SCH ×2 (02:45→16:22)
[2020-02-28 04:47] LABS: White Blood Cell (WBC) Count 0.9 thou/uL (4.8-10.8)
[2020-02-28 04:48] LABS: #Eosinphils 0.1 thou/uL (0.0-0.7); #Lymphocytes 0.4 thou/uL (1.20-3.40); #Monocytes 0.1 thou/uL (0.11-0.59); #Neutrophils 0.3 thou/uL (1.40-6.50); %Eosinophils 14.5 % (0.0-10.0); %Lymphocytes 41.1 % (21.0-51.0); %Monocytes 14.5 % (0.0-10.0); %Neutrophils 29.9 % (42.0-75.0); Hemoglobin 6.9 g/dL (14.0-18.0); Mean Corpuscular HGB CONC 35.5 g/dL (32.0-36.0); Mean Corpuscular Hemoglobin 35.1 pg (27.0-31.0); Mean Corpuscular Volume 98.9 fL (78.0-98.0); Platelet Count 50 thou/uL (130-400); RBC Distribution Width 15.6 % (11.5-14.5); Red Blood Cell (RBC) Count 1.97 mill/uL (4.70-6.10)
[2020-02-28 05:04] LABS: Anion Gap 12 mmol/L (10-20); BUN (Urea Nitrogen) 9 mg/dL (8.4-25.7); Calc. Creatinine Clearance 138 mL/min (70-130); Calcium 7.9 mg/dL (7.8-10.44); Carbon Dioxide 24 mmol/L (23-31); Chloride 105 mmol/L (98-107); Glucose 93 mg/dL (80-115); Potassium 3.7 mmol/L (3.5-5.1); Sodium 137 mmol/L (136-145)
[2020-02-28] MEDS: Vancomycin HCl 1.25 GM in Sodium Chloride 0.9% 250 ML 250 ML IVPB SCH (05:29)
[2020-02-28] MEDS: Levothyroxine Sodium 75 MCG TAB PO SCH (05:30)
[2020-02-28] MEDS: Famotidine 20 MG TAB PO SCH ×2 (09:08→20:18)
[2020-02-28] MEDS: Montelukast Sodium 10 mg Tablet PO SCH (09:08)
[2020-02-28] MEDS: Morphine ER 30 MG TAB PO SCH ×2 (09:09→20:19)
[2020-02-28] MEDS: Pregabalin 75 MG CAP PO SCH ×2 (09:11→20:19)
[2020-02-28] MEDS: valACYclovir 500 MG TAB PO SCH ×2 (09:14→20:18)
--- NOTE | 2020-02-28 12:39 | PDOC.MOPN ---
Interval History: Pt feeling well, still fatigued but no fever, N/V/D. Walking up and down the halls. - Vital Signs Vital Signs: Vital Signs (12 hours) Temp Pulse Resp BP Pulse Ox 02/28/20 11:03 97.5 F L 73 16 102/56 L 99 02/28/20 08:25 98.9 F 77 16 128/73 98 02/28/20 08:00 98 Weight Weight 180 lb - Physical Exam General: Alert, Oriented x3, Cooperative Lungs: Normal air movement Cardiovascular: Regular rate Neurological: Cranial nerves 3-12 NL Psych/Mental Status: Mental status NL, Mood NL - Labs Result Diagrams: 02/28/20 04:21 02/28/20 04:20 Lab results: Laboratory Results - last 24 hr 02/28/20 04:21: WBC 0.9 L*, RBC 1.97 L, Hgb 6.9 L, Hct 19.5 L, MCV 98.9 H, MCH 35.1 H, MCHC 35.5, RDW 15.6 H, Plt Count 50 L, MPV 9.0, Neutrophils % 29.9 L, Neutrophils % (Manual) Not Reportable, Lymphocytes % 41.1, Monocytes % 14.5 H, Eosinophils % 14.5 H, Basophils % 0.0, Neutrophils # 0.3 L, Lymphocytes # 0.4 L, Monocytes # 0.1 L, Eosinophils # 0.1, Basophils # 0.0 02/28/20 04:20: Sodium 137, Potassium 3.7, Chloride 105, Carbon Dioxide 24, Anion Gap 12, BUN 9, Creatinine 0.65 L, Estimated GFR (MDRD) Greater than 90, Glucose 93, Calcium 7.9 A/P - Problem (1) Neutropenic fever Current Visit: Yes Code(s): D70.9 - NEUTROPENIA, UNSPECIFIED; R50.81 - FEVER PRESENTING WITH CONDITIONS CLASSIFIED ELSEWHERE Status: Acute (2) Pancytopenia due to antineoplastic chemotherapy Current Visit: Yes Code(s): D61.810 - ANTINEOPLASTIC CHEMOTHERAPY INDUCED PANCYTOPENIA; T45.1X5A - ADVERSE EFFECT OF ANTINEOPLASTIC AND IMMUNOSUP DRUGS, INIT Status: Acute (3) Multiple myeloma Current Visit: Yes Code(s): C90.00 - MULTIPLE MYELOMA NOT HAVING ACHIEVED REMISSION Status: Chronic Qualifiers: Multiple myeloma remission status: not in remission Qualified Code(s): C90.00 - Multiple myeloma not having achieved remission - Plan Plan: Continue antibiotics f/u BCx Ok for discharge once afebrile x 24-48 hr and ANC 750-1000 - may go home next couple days if ANC trending up even if not at goal Advised pt to hold pomalyst after discharge until I advise him otherwise.
[2020-02-28 12:41] LABS: Vancomycin, Trough 13.1 ug/mL
[2020-02-28] MEDS: Vancomycin 1.5 GRAM/300 ML BAG 1.5 GM in Premix Bag 1 BAG IVPB SCH ×2 (13:42→20:22)
--- NOTE | 2020-02-28 19:45 | PDOC.HOSPP ---
- Subjective Encounter Date: 02/28/20 Encounter Time: 14:00 Subjective: Patient seen for follow-up for febrile neutropenia. He denies any complaints today. - Objective Vital Signs & Weight: Vital Signs (12 hours) Temp Pulse Resp BP Pulse Ox 02/28/20 15:57 97.8 F 88 16 109/63 97 02/28/20 11:03 97.5 F L 73 16 102/56 L 99 02/28/20 08:25 98.9 F 77 16 128/73 98 02/28/20 08:00 98 Weight Weight 180 lb I&O: 02/27/20 02/28/20 02/29/20 06:59 06:59 06:59 Intake Total 1320 1410 840 Balance 1320 1410 840 Result Diagrams: 02/28/20 04:21 02/28/20 04:20 Additional Labs: Labs and MAR reviewed by ut Hospitalist ROS - Review of Systems Cardiovascular: denies: chest pain, palpitations, orthopnea, paroxysmal noc. dyspnea, edema, light headedness Gastrointestinal: denies: nausea, vomiting, abdominal pain, diarrhea, constipation, melena, hematochezia - Medication Medications: Active Medications Generic Name Dose Route Start Last Admin Trade Name Freq PRN Reason Stop Dose Admin Acetaminophen 650 mg 02/25/20 16:44 02/27/20 04:05 Acetaminophen 325 Mg Tab PO 650 mg Q4H PRN Administration Headache/Fever/Mild Pain (1-3) Famotidine 20 mg 02/25/20 21:00 02/28/20 09:08 Famotidine 20 Mg Tab PO 20 mg BID AMAURI Administration Cefepime HCl 2 gm/ Sodium 100 mls @ 200 mls/hr 02/26/20 03:00 02/28/20 16:22 Chloride IVPB 100 mls 0300,1500 AMAURI Administration Vancomycin HCl 1.5 gm/ Device 300 mls @ 200 mls/hr 02/28/20 13:00 02/28/20 13:42 IVPB 300 mls 0500,1300,2100 AMAURI Administration Levothyroxine Sodium 75 mcg 02/26/20 06:00 02/28/20 05:30 Levothyroxine Sodium 75 Mcg Tab PO 75 mcg 0600 AMAURI Administration Montelukast Sodium 10 mg 02/26/20 09:00 02/28/20 09:08 Montelukast Sodium 10 Mg Tablet PO 10 mg DAILY AMAURI Administration Morphine Sulfate 30 mg 02/25/20 21:00 02/28/20 09:09 Morphine Er 30 Mg Tab PO 30 mg Q12HR AMAURI Administration Pregabalin 300 mg 02/25/20 21:00 02/28/20 09:11 Pregabalin 75 Mg Cap PO 300 mg BID AMAURI Administration Rosuvastatin Calcium 20 mg 02/25/20 21:00 02/27/20 20:24 Rosuvastatin 20 Mg Tab PO 20 mg HS AMAURI Administration Senna/Docusate Sodium 3 tab 02/25/20 21:00 02/27/20 20:22 Senokot S 8.6-50 Mg Tab PO 3 tab HS AMAURI Administration Sodium Chloride 10 ml 02/26/20 09:00 02/28/20 09:13 Flush - Normal Saline 10 Ml Syringe IVF 10 ml Q12HR AMAURI Administration Valacyclovir HCl 500 mg 02/25/20 21:00 02/28/20 09:14 Valacyclovir 500 Mg Tab PO 500 mg BID AMAURI Administration - Exam Eye: anicteric sclera ENT: moist mucosa Neck: supple Heart: RRR Respiratory: CTAB Gastrointestinal: soft, non-tender Skin: no rashes Psychiatric: normal affect, normal behavior Hosp A/P - Plan Hosp A/P (1) Neutropenic fever Code(s): D70.9 - NEUTROPENIA, UNSPECIFIED; R50.81 - FEVER PRESENTING WITH CONDITIONS CLASSIFIED ELSEWHERE Status: Acute (2) Sepsis Code(s): A41.9 - SEPSIS, UNSPECIFIED ORGANISM Status: Acute (3) Pancytopenia due to antineoplastic chemotherapy Code(s): D61.810 - ANTINEOPLASTIC CHEMOTHERAPY INDUCED PANCYTOPENIA; T45.1X5A - ADVERSE EFFECT OF ANTINEOPLASTIC AND IMMUNOSUP DRUGS, INIT Status: Acute (4) Multiple myeloma Code(s): C90.00 - MULTIPLE MYELOMA NOT HAVING ACHIEVED REMISSION Status: Chronic Qualifiers: Multiple myeloma remission status: not in remission Qualified Code(s): C90.00 - Multiple myeloma not having achieved remission (5) Hypothyroidism Code(s): E03.9 - HYPOTHYROIDISM, UNSPECIFIED Status: Chronic (6) HTN (hypertension) Code(s): I10 - ESSENTIAL (PRIMARY) HYPERTENSION Status: Chronic (7) HLD (hyperlipidemia) Code(s): E78.5 - HYPERLIPIDEMIA, UNSPECIFIED Status: Chronic - Plan Patient continues to be neutropenic. Continue IV cefepime and vancomycin, follow cultures. Continue neutropenic precautions. Hemoglobin 6.9, transfuse 1 unit packed RBC.
[2020-02-28] MEDS: Rosuvastatin 20 MG TAB PO SCH (20:18)
[2020-02-28] MEDS: Senokot S 8.6-50 MG TAB PO SCH (20:18)
[2020-02-29] MEDS: Cefepime 2 GM in Sodium Chloride 0.9% 100 ML IVPB SCH ×2 (03:53→15:43)
[2020-02-29 04:30] LABS: Anion Gap 14 mmol/L (10-20); BUN (Urea Nitrogen) 8 mg/dL (8.4-25.7); Calc. Creatinine Clearance 130 mL/min (70-130); Calcium 8.6 mg/dL (7.8-10.44); Carbon Dioxide 23 mmol/L (23-31); Chloride 105 mmol/L (98-107); Glucose 86 mg/dL (80-115); Potassium 4.3 mmol/L (3.5-5.1); Sodium 138 mmol/L (136-145)
[2020-02-29] MEDS: Levothyroxine Sodium 75 MCG TAB PO SCH (05:11)
[2020-02-29] MEDS: Vancomycin 1.5 GRAM/300 ML BAG 1.5 GM in Premix Bag 1 BAG IVPB SCH ×3 (05:11→20:06)
[2020-02-29 05:24] LABS: Anisocytosis SLIGHT = 6-15 cells (100X) (0-5/hpf); Band 9 % (5-11); Eosinophils 21 % (0-10); Hemoglobin 8.4 g/dL (14.0-18.0); Lymphocytes 39 % (21-51); MDiff Complete? YES; Mean Corpuscular HGB CONC 34.4 g/dL (32.0-36.0); Mean Corpuscular Hemoglobin 33.9 pg (27.0-31.0); Mean Corpuscular Volume 98.6 fL (78.0-98.0); Monocytes 4 % (0-10); Neutrophil 27 % (42-75); Platelet Count 65 thou/uL (130-400); Platelet Morphology Comment Appears Decreased; RBC Distribution Width 15.6 % (11.5-14.5); Red Blood Cell (RBC) Count 2.48 mill/uL (4.70-6.10); White Blood Cell (WBC) Count 1.3 thou/uL (4.8-10.8)
[2020-02-29] MEDS: Pregabalin 75 MG CAP PO SCH ×2 (09:14→20:06)
[2020-02-29] MEDS: Morphine ER 30 MG TAB PO SCH ×2 (09:15→20:06)
[2020-02-29] MEDS: Montelukast Sodium 10 mg Tablet PO SCH (09:16)
[2020-02-29] MEDS: Famotidine 20 MG TAB PO SCH ×2 (09:16→20:06)
[2020-02-29] MEDS: valACYclovir 500 MG TAB PO SCH ×2 (09:16→20:06)
[2020-02-29 13:45] LABS: Vancomycin, Trough 18.8 ug/mL
--- NOTE | 2020-02-29 15:34 | PDOC.HOSPP ---
- Subjective Encounter Date: 02/29/20 Encounter Time: 07:00 Subjective: Patient seen for follow-up regarding neutropenia. Denies cough. Denies urinary symptoms. - Objective Vital Signs & Weight: Vital Signs (12 hours) Temp Pulse Resp BP BP Pulse Ox 02/29/20 11:39 97.8 F 68 16 108/56 L 97 02/29/20 08:00 97 02/29/20 07:37 98.0 F 77 16 112/65 97 02/29/20 03:40 98.1 F 65 16 108/56 L 98 Weight Weight 180 lb I&O: 02/28/20 02/29/20 03/01/20 06:59 06:59 06:59 Intake Total 1412059 Balance 1409 2059 Result Diagrams: 02/29/20 03:43 02/29/20 03:43 Additional Labs: I reviewed patient's labs and MAR Hospitalist ROS - Review of Systems Cardiovascular: denies: chest pain, palpitations, orthopnea, paroxysmal noc. dyspnea, edema, light headedness Gastrointestinal: denies: nausea, vomiting, abdominal pain, diarrhea, constipation, melena, hematochezia Skin: denies: rash, lesions, oleksandr - Medication Medications: Active Medications Generic Name Dose Route Start Last Admin Trade Name Freq PRN Reason Stop Dose Admin Acetaminophen 650 mg 02/25/20 16:44 02/27/20 04:05 Acetaminophen 325 Mg Tab PO 650 mg Q4H PRN Administration Headache/Fever/Mild Pain (1-3) Famotidine 20 mg 02/25/20 21:00 02/29/20 09:16 Famotidine 20 Mg Tab PO 20 mg BID AMAURI Administration Cefepime HCl 2 gm/ Sodium 100 mls @ 200 mls/hr 02/26/20 03:00 02/29/20 03:53 Chloride IVPB 100 mls 0300,1500 AMAURI Administration Vancomycin HCl 1.5 gm/ Device 300 mls @ 200 mls/hr 02/28/20 13:00 02/29/20 13:49 IVPB 300 mls 0500,1300,2100 AMAURI Administration Levothyroxine Sodium 75 mcg 02/26/20 06:00 02/29/20 05:11 Levothyroxine Sodium 75 Mcg Tab PO 75 mcg 0600 AMAURI Administration Montelukast Sodium 10 mg 02/26/20 09:00 02/29/20 09:16 Montelukast Sodium 10 Mg Tablet PO 10 mg DAILY AMAURI Administration Morphine Sulfate 30 mg 02/25/20 21:00 02/29/20 09:15 Morphine Er 30 Mg Tab PO 30 mg Q12HR AMAURI Administration Pregabalin 300 mg 02/25/20 21:00 02/29/20 09:14 Pregabalin 75 Mg Cap PO 300 mg BID AMAURI Administration Rosuvastatin Calcium 20 mg 02/25/20 21:00 02/28/20 20:18 Rosuvastatin 20 Mg Tab PO 20 mg HS AMAURI Administration Senna/Docusate Sodium 3 tab 02/25/20 21:00 02/28/20 20:18 Senokot S 8.6-50 Mg Tab PO 3 tab HS AMAURI Administration Sodium Chloride 10 ml 02/26/20 09:00 02/29/20 09:16 Flush - Normal Saline 10 Ml Syringe IVF 10 ml Q12HR AMAURI Administration Valacyclovir HCl 500 mg 02/25/20 21:00 02/29/20 09:16 Valacyclovir 500 Mg Tab PO 500 mg BID AMAURI Administration - Exam General Appearance: awake alert Eye: anicteric sclera ENT: moist mucosa Neck: supple Heart: RRR Respiratory: CTAB Gastrointestinal: soft, non-tender Skin: no rashes Psychiatric: normal affect, normal behavior Hosp A/P - Plan Hosp A/P (1) Neutropenic fever Code(s): D70.9 - NEUTROPENIA, UNSPECIFIED; R50.81 - FEVER PRESENTING WITH CONDITIONS CLASSIFIED ELSEWHERE Status: Acute (2) Sepsis Code(s): A41.9 - SEPSIS, UNSPECIFIED ORGANISM Status: Acute (3) Pancytopenia due to antineoplastic chemotherapy Code(s): D61.810 - ANTINEOPLASTIC CHEMOTHERAPY INDUCED PANCYTOPENIA; T45.1X5A - ADVERSE EFFECT OF ANTINEOPLASTIC AND IMMUNOSUP DRUGS, INIT Status: Acute (4) Multiple myeloma Code(s): C90.00 - MULTIPLE MYELOMA NOT HAVING ACHIEVED REMISSION Status: Chronic Qualifiers: Multiple myeloma remission status: not in remission Qualified Code(s): C90.00 - Multiple myeloma not having achieved remission (5) Hypothyroidism Code(s): E03.9 - HYPOTHYROIDISM, UNSPECIFIED Status: Chronic (6) HTN (hypertension) Code(s): I10 - ESSENTIAL (PRIMARY) HYPERTENSION Status: Chronic (7) HLD (hyperlipidemia) Code(s): E78.5 - HYPERLIPIDEMIA, UNSPECIFIED Status: Chronic - Plan Follow blood counts. Patient is on IV cefepime and vancomycin, follow cultures. Continue neutropenic precautions. Hemoglobin improved after packed RBC transfusion.
[2020-02-29] MEDS: Senokot S 8.6-50 MG TAB PO SCH (20:06)
[2020-02-29] MEDS: Rosuvastatin 20 MG TAB PO SCH (20:06)
[2020-03-01] MEDS: Cefepime 2 GM in Sodium Chloride 0.9% 100 ML IVPB SCH ×2 (03:58→15:45)
[2020-03-01] MEDS: Levothyroxine Sodium 75 MCG TAB PO SCH (03:59)
[2020-03-01] MEDS: Vancomycin 1.5 GRAM/300 ML BAG 1.5 GM in Premix Bag 1 BAG IVPB SCH ×2 (03:59→12:51)
[2020-03-01 04:52] LABS: Anion Gap 16 mmol/L (10-20); BUN (Urea Nitrogen) 8 mg/dL (8.4-25.7); Calc. Creatinine Clearance 132 mL/min (70-130); Calcium 8.7 mg/dL (7.8-10.44); Carbon Dioxide 21 mmol/L (23-31); Chloride 106 mmol/L (98-107); Glucose 91 mg/dL (80-115); Potassium 4.3 mmol/L (3.5-5.1); Sodium 139 mmol/L (136-145)
[2020-03-01 05:46] LABS: Band 9 % (5-11); Eosinophils 15 % (0-10); Hemoglobin 8.1 g/dL (14.0-18.0); Lymphocytes 35 % (21-51); MDiff Complete? YES; Mean Corpuscular HGB CONC 34.7 g/dL (32.0-36.0); Mean Corpuscular Hemoglobin 34.1 pg (27.0-31.0); Mean Corpuscular Volume 98.2 fL (78.0-98.0); Mean Platelet Volume 8.8 fL (7.4-10.4); Monocytes 17 % (0-10); Myelocyte 2 % (0-0); Neutrophil 22 % (42-75); Nucleated RBC 4 % (0); Platelet Count 65 thou/uL (130-400); RBC Distribution Width 15.6 % (11.5-14.5); Red Blood Cell (RBC) Count 2.36 mill/uL (4.70-6.10); White Blood Cell (WBC) Count 1.3 thou/uL (4.8-10.8)
[2020-03-01] MEDS: Pregabalin 75 MG CAP PO SCH (10:18)
[2020-03-01] MEDS: Famotidine 20 MG TAB PO SCH (10:19)
[2020-03-01] MEDS: Morphine ER 30 MG TAB PO SCH (10:19)
[2020-03-01] MEDS: Montelukast Sodium 10 mg Tablet PO SCH (10:20)
[2020-03-01] MEDS: valACYclovir 500 MG TAB PO SCH (10:20)
--- NOTE | 2020-03-01 11:05 | PDOC.HOSPP ---
- Subjective Encounter Date: 03/01/20 Encounter Time: 07:00 Subjective: Seen for follow-up regarding neutropenic fever. He denies any complaints. - Objective Vital Signs & Weight: Vital Signs (12 hours) Temp Pulse Resp BP Pulse Ox 03/01/20 07:51 98.5 F 68 16 114/62 98 Weight Weight 180 lb I&O: 02/29/20 03/01/20 03/02/20 06:59 06:59 06:59 Intake Total 2360 1860 Balance 2360 1860 Result Diagrams: 03/01/20 03:53 03/01/20 03:53 Additional Labs: Labs and MAR reviewed by tx Hospitalist ROS - Review of Systems Gastrointestinal: denies: nausea, vomiting, abdominal pain, diarrhea, constipation, melena, hematochezia Genitourinary: denies: dysuria, frequency, incontinence, hematuria, retention - Medication Medications: Active Medications Generic Name Dose Route Start Last Admin Trade Name Freq PRN Reason Stop Dose Admin Acetaminophen 650 mg 02/25/20 16:44 02/27/20 04:05 Acetaminophen 325 Mg Tab PO 650 mg Q4H PRN Administration Headache/Fever/Mild Pain (1-3) Famotidine 20 mg 02/25/20 21:00 03/01/20 10:19 Famotidine 20 Mg Tab PO 20 mg BID AMAURI Administration Cefepime HCl 2 gm/ Sodium 100 mls @ 200 mls/hr 02/26/20 03:00 03/01/20 03:58 Chloride IVPB 100 mls 0300,1500 AMAURI Administration Vancomycin HCl 1.5 gm/ Device 300 mls @ 200 mls/hr 02/28/20 13:00 03/01/20 03:59 IVPB 300 mls 0500,1300,2100 AMAURI Administration Levothyroxine Sodium 75 mcg 02/26/20 06:00 03/01/20 03:59 Levothyroxine Sodium 75 Mcg Tab PO 75 mcg 0600 AMAURI Administration Montelukast Sodium 10 mg 02/26/20 09:00 03/01/20 10:20 Montelukast Sodium 10 Mg Tablet PO 10 mg DAILY AMAURI Administration Morphine Sulfate 30 mg 02/25/20 21:00 03/01/20 10:19 Morphine Er 30 Mg Tab PO 30 mg Q12HR AMAURI Administration Pregabalin 300 mg 02/25/20 21:00 03/01/20 10:18 Pregabalin 75 Mg Cap PO 300 mg BID AMAURI Administration Rosuvastatin Calcium 20 mg 02/25/20 21:00 02/29/20 20:06 Rosuvastatin 20 Mg Tab PO 20 mg HS AMAURI Administration Senna/Docusate Sodium 3 tab 02/25/20 21:00 02/29/20 20:06 Senokot S 8.6-50 Mg Tab PO 3 tab HS AMAURI Administration Sodium Chloride 10 ml 02/26/20 09:00 03/01/20 10:20 Flush - Normal Saline 10 Ml Syringe IVF 10 ml Q12HR AMAURI Administration Sodium Chloride 10 ml 02/26/20 09:00 02/29/20 20:08 Flush - Normal Saline 10 Ml Syringe IVF 10 ml PRN PRN Administration Saline Flush Valacyclovir HCl 500 mg 02/25/20 21:00 03/01/20 10:20 Valacyclovir 500 Mg Tab PO 500 mg BID AMAURI Administration - Exam General Appearance: awake alert Eye: anicteric sclera ENT: normocephalic atraumatic, moist mucosa Neck: supple Heart: RRR Respiratory: CTAB Gastrointestinal: soft, non-tender Skin: no rashes Psychiatric: normal affect, normal behavior Hosp A/P - Plan Hosp A/P (1) Neutropenic fever Code(s): D70.9 - NEUTROPENIA, UNSPECIFIED; R50.81 - FEVER PRESENTING WITH CONDITIONS CLASSIFIED ELSEWHERE Status: Acute (2) Sepsis Code(s): A41.9 - SEPSIS, UNSPECIFIED ORGANISM Status: Acute (3) Pancytopenia due to antineoplastic chemotherapy Code(s): D61.810 - ANTINEOPLASTIC CHEMOTHERAPY INDUCED PANCYTOPENIA; T45.1X5A - ADVERSE EFFECT OF ANTINEOPLASTIC AND IMMUNOSUP DRUGS, INIT Status: Acute (4) Multiple myeloma Code(s): C90.00 - MULTIPLE MYELOMA NOT HAVING ACHIEVED REMISSION Status: Chronic Qualifiers: Multiple myeloma remission status: not in remission Qualified Code(s): C90.00 - Multiple myeloma not having achieved remission (5) Hypothyroidism Code(s): E03.9 - HYPOTHYROIDISM, UNSPECIFIED Status: Chronic (6) HTN (hypertension) Code(s): I10 - ESSENTIAL (PRIMARY) HYPERTENSION Status: Chronic (7) HLD (hyperlipidemia) Code(s): E78.5 - HYPERLIPIDEMIA, UNSPECIFIED Status: Chronic - Plan Patient is still neutropenic, continue IV cefepime and vancomycin and follow cultures. Continue neutropenic precautions. Hemoglobin stable at 8.1. Continue Synthroid 75 mcg daily. Continue Crestor 20 mg at bedtime.
--- NOTE | 2020-03-01 15:21 | EKG ---
Test Reason : Blood Pressure : / mmHG Vent. Rate : 091 BPM Atrial Rate : 091 BPM P-R Int : 170 ms QRS Dur : 102 ms QT Int : 360 ms P-R-T Axes : 050 -04 030 degrees QTc Int : 442 ms Normal sinus rhythm Nonspecific ST and T wave abnormality Abnormal ECG Confirmed by JEAN PIERRE LUCAS DO ([id number]), marketing editor RAMILA FOSTER ([id number]) on 03/01/2020 3:20:31 PM Referred By: Confirmed By:JEAN PIERRE LUCAS DO
[2020-03-01 15:27] VITALS: BP 107/62; TEMP 98.3
--- NOTE | 2020-03-01 15:30 | PDOC.DS.DS ---
Provider - Provider Date of Admission: 02/25/20 15:43 Date of Discharge: 03/01/20 Admitting Provider: Asael Verduzco DO Consultations: Oncology (Dr. Jean) Course - Hospital Course Hospital Course: Discharge diagnosis: 1. Febrile neutropenia 2. Pancytopenia 3. COVID-19 test negative 4. Hyponatremia Hospital course: Patient is a pleasant 59-year-old gentleman who was admitted to the hospital on February 25, 2020 for febrile neutropenia. He was seen by oncology service. He was treated with intravenous cefepime and vancomycin. Blood counts slowly started improving. He was cleared for discharge by oncology service on March 01, 2020. He received a prescription for levofloxacin from oncology service. He has been advised to resume the rest of his home medications. Please note that patient was transfused with 2 units packed RBC during this hospitalization. Many thanks for allowing me to participate in your patient's care. Please feel free to contact me with any questions or concerns. Discharge destination: Home Total amount of time spent coordinating this discharge: 25 minutes Resuscitation Status: 02/25/20 16:36 Resuscitation Status Routine Resuscitation Status: FULL: Full Resuscitation Discussed with: Patient - Labs Lab Results: 03/01/20 03:53 03/01/20 03:53 Abnormal Lab Results - Last 48 hrs 02/26/20 08:43: Antibody Screen POSITIVE H, Crossmatch See Detail 02/29/20 03:43: BUN 8 L, Creatinine 0.69 L 02/29/20 03:43: WBC 1.3 L, RBC 2.48 L, Hgb 8.4 L, Hct 24.5 L, MCV 98.6 H, MCH 33.9 H, RDW 15.6 H, Plt Count 65 L, Neutrophils % (Manual) 27 L, Eosinophils % (Manual) 21 H, Plt Morphology Comment Appears Decreased L 03/01/20 03:53: Carbon Dioxide 21 L, BUN 8 L, Creatinine 0.68 L 03/01/20 03:53: WBC 1.3 L, RBC 2.36 L, Hgb 8.1 L, Hct 23.2 L, MCV 98.2 H, MCH 34.1 H, RDW 15.6 H, Plt Count 65 L, Neutrophils % (Manual) 22 L, Monocytes % (Manual) 17 H, Eosinophils % (Manual) 15 H, Myelocytes % 2 H, Nucleated RBCs # (Man) 4 H Microbiology - Entire Visit 02/25/20 13:14 Venous blood - Right Arm Blood Culture - Final NO GROWTH IN 5 DAYS 02/25/20 13:14 Venous blood - Left Arm Blood Culture - Final NO GROWTH IN 5 DAYS 02/25/20 13:30 Urine voided Urine Culture - Final NO GROWTH AT 36 HOURS - Physical Exam Vitals: Vital Signs (12 hours) Temp Pulse Resp BP BP Pulse Ox 03/01/20 15:24 98.3 F 76 20 107/62 98 03/01/20 11:26 98.6 F 82 20 104/56 L 96 03/01/20 07:51 98.5 F 68 16 114/62 98 Weight Weight 180 lb Physical Exam: The patient was seen and examined on the day of discharge. Please refer to my daily progress note for further details regarding this [id number] encounter. Plan - Discharge Medications Home Medications: Medication Instructions Recorded Confirmed Type Levothyroxine Sodium [Synthroid] 75 mcg PO DAILY 08/14/18 02/25/20 History Lisinopril 10 mg PO DAILY 08/14/18 02/25/20 History Montelukast Sodium [Singulair] 10 mg PO DAILY 08/14/18 02/25/20 History Rosuvastatin [Crestor] 20 mg PO DAILY 08/14/18 02/25/20 History valACYclovir HCl [Valtrex] 500 mg PO BID 11/29/18 02/25/20 History Loratadine [Claritin] 10 mg PO DAILY 04/12/19 02/25/20 History Pregabalin 300 mg PO BID 04/12/19 02/25/20 History Allergies: nitrofurantoin [From Macrobid] Allergy (Verified 02/25/20 18:28) Rash - Discharge Instructions Discharge Instructions:: Take levofloxacin as prescribed by oncology service. Resume your home medications. Activity:: Activity as Tolerated Nourishment:: Heart Healthy Diet - Follow up Plan Referrals: Lulu Damon MD [Active] - 3 Days Disposition: HOME Quality - Care Measures CORE MEASURES:: N/A
== END 2020-03-01 16:45 | disposition home or self-care (01) | DRG 808 ==
LOC: ERS 12:27 → ERHOLD 15:43 → ONC 18:16
PROVIDERS: ADMIT Family Medicine; ATTEND Internal Medicine
PROC: 30233N1 Transfusion of Nonautologous Red Blood Cells into Peripheral Vein, Percutaneous Approach (ICD-10-PCS; principal; 2020-02-26)
DX: D61.810 Antineoplastic chemotherapy induced pancytopenia (principal); A41.9 Sepsis, unspecified organism; E87.1 Hypo-osmolality and hyponatremia; C90.00 Multiple myeloma not having achieved remission; Z94.84 Stem cells transplant status; D70.9 Neutropenia, unspecified; Z20.828 Contact with and (suspected) exposure to other viral communicable diseases; E03.9 Hypothyroidism, unspecified; E78.5 Hyperlipidemia, unspecified; G89.3 Neoplasm related pain (acute) (chronic); T45.1X5A Adverse effect of antineoplastic and immunosuppressive drugs, initial encounter; E78.00 Pure hypercholesterolemia, unspecified; R50.81 Fever presenting with conditions classified elsewhere; Z88.8 Allergy status to other drugs, medicaments and biological substances; Z90.79 Acquired absence of other genital organ(s); Z79.899 Other long term (current) drug therapy; Z79.890 Hormone replacement therapy
CPT/HCPCS: 0240U; 36415; 36416; 36430; 71045; 80048; 80053; 80076; 80202; 81003; 81015; 83605; 85025; 85060; 86850; 86900; 86901; 86922; 87040; 87086; 93005; 96365; 96375; J0692; J2405; J3010; J3370; J3490; J7030; J7050; P9040

== ENCOUNTER → 2020-03-26 | Day surgery (SDC) | payer BC ==
[~2020-03-26] MED LIST: Acetaminophen 500 MG TAB PO SCH; Sodium Chloride 0.9% 20 ML ONE
[2020-03-26] MEDS: diphenhydrAMINE 25 MG CAP PO SCH ×2 (12:21→13:27)
[2020-03-26 13:56] VITALS: BP 108/58; TEMP 98.4
== END ==
LOC: ONC/OP 09:39
PROVIDERS: ATTEND Internal Medicine Hematology & Oncology
PROC: 30233N1 Transfusion of Nonautologous Red Blood Cells into Peripheral Vein, Percutaneous Approach (ICD-10-PCS; principal; 2020-03-26)
PROC: 30233R1 Transfusion of Nonautologous Platelets into Peripheral Vein, Percutaneous Approach (ICD-10-PCS; principal; 2020-03-26)
DX: D69.6 Thrombocytopenia, unspecified (principal); D64.9 Anemia, unspecified; Z88.1 Allergy status to other antibiotic agents
CPT/HCPCS: 36430; 86850; 86900; 86901; 86922; P9036; Q0163

== ENCOUNTER 2020-03-28 09:06 | Day surgery (SDC) | payer BC ==
[2020-03-28] MEDS ORDERED: Sodium Chloride 0.9% 20 ML ONE ×2 (09:19→09:33)
[2020-03-28] MEDS ORDERED: diphenhydrAMINE 25 MG CAP PO SCH (09:30)
[2020-03-28] MEDS ORDERED: Acetaminophen 500 MG TAB PO SCH (09:30)
[2020-03-28 13:01] VITALS: BP 104/59; TEMP 98.8
== END 2020-03-28 14:51 | disposition home or self-care (01) ==
LOC: ONC/OP 09:06
PROVIDERS: ATTEND Internal Medicine Hematology & Oncology
PROC: 30233N1 Transfusion of Nonautologous Red Blood Cells into Peripheral Vein, Percutaneous Approach (ICD-10-PCS; principal; 2020-03-28)
PROC: 30233R1 Transfusion of Nonautologous Platelets into Peripheral Vein, Percutaneous Approach (ICD-10-PCS; principal; 2020-03-28)
DX: D69.6 Thrombocytopenia, unspecified (principal); D64.9 Anemia, unspecified; Z88.1 Allergy status to other antibiotic agents
CPT/HCPCS: 36430; 86850; 86870; 86880; 86900; 86901; 86904; 86922; P9036; P9040; Q0163

== ENCOUNTER 2020-04-01 09:43 | Day surgery (SDC) | payer BC ==
[2020-04-01] MEDS ORDERED: diphenhydrAMINE 25 MG CAP PO SCH (10:15)
[2020-04-01] MEDS ORDERED: Sodium Chloride 0.9% 20 ML ONE (10:41)
[2020-04-01] MEDS: Acetaminophen 500 MG TAB PO SCH ×2 (10:43→19:26)
[2020-04-01 20:37] VITALS: BP 147/79; TEMP 98
[2020-04-01 20:45] LABS: Hemoglobin 7.4 g/dL (14.0-18.0); Mean Corpuscular HGB CONC 35.9 g/dL (32.0-36.0); Mean Corpuscular Hemoglobin 32.4 pg (27.0-31.0); Mean Corpuscular Volume 90.3 fL (78.0-98.0); Mean Platelet Volume 7.8 fL (7.4-10.4); Platelet Count 47 thou/uL (130-400); RBC Distribution Width 15.2 % (11.5-14.5); Red Blood Cell (RBC) Count 2.27 mill/uL (4.70-6.10); White Blood Cell (WBC) Count 2.3 thou/uL (4.8-10.8)
[2020-04-01 21:01] LABS: Band 11 % (5-11); Eosinophils 5 % (0-10); Lymphocytes 30 % (21-51); MDiff Complete? YES; Monocytes 6 % (0-10); Neutrophil 48 % (42-75); Platelet Morphology Comment Appears Decreased
== END 2020-04-01 20:35 | disposition home or self-care (01) ==
LOC: ONC/OP 09:43
PROVIDERS: ATTEND Internal Medicine Hematology & Oncology
PROC: 30233R1 Transfusion of Nonautologous Platelets into Peripheral Vein, Percutaneous Approach (ICD-10-PCS; principal; 2020-04-01)
PROC: 30233N1 Transfusion of Nonautologous Red Blood Cells into Peripheral Vein, Percutaneous Approach (ICD-10-PCS; principal; 2020-04-01)
DX: D69.6 Thrombocytopenia, unspecified (principal); D64.9 Anemia, unspecified
CPT/HCPCS: 36415; 36430; 85025; 86850; 86900; 86901; 86922; P9036; P9040; Q0163

== ENCOUNTER 2020-04-05 11:12 | Day surgery (SDC) | payer BC ==
[2020-04-05] MEDS ORDERED: diphenhydrAMINE 25 MG CAP PO SCH (12:00)
[2020-04-05] MEDS ORDERED: Acetaminophen 500 MG TAB PO SCH (12:00)
[2020-04-05 18:13] VITALS: BP 106/55; TEMP 98
[2020-04-05 19:01] LABS: Hemoglobin 7.4 g/dL (14.0-18.0); Mean Corpuscular HGB CONC 35.1 g/dL (32.0-36.0); Mean Corpuscular Hemoglobin 31.2 pg (27.0-31.0); Mean Corpuscular Volume 88.9 fL (78.0-98.0); Mean Platelet Volume 8.5 fL (7.4-10.4); Platelet Count 28 thou/uL (130-400); RBC Distribution Width 14.2 % (11.5-14.5); Red Blood Cell (RBC) Count 2.38 mill/uL (4.70-6.10); White Blood Cell (WBC) Count 1.2 thou/uL (4.8-10.8)
[2020-04-05 19:15] LABS: Band 14 % (5-11); Lymphocytes 46 % (21-51); MDiff Complete? YES; Monocytes 6 % (0-10); Myelocyte 2 % (0-0); Neutrophil 32 % (42-75); Nucleated RBC 1 % (0); Platelet Morphology Comment Appears Decreased; Polychromasia SLIGHT = 2-3 cells (100X) (0-2/hpf)
== END 2020-04-05 18:40 | disposition home or self-care (01) ==
LOC: ONC/OP 11:12 → ONC 11:30 → ONC/OP 18:40
PROVIDERS: ATTEND Internal Medicine Hematology & Oncology
PROC: 30233R1 Transfusion of Nonautologous Platelets into Peripheral Vein, Percutaneous Approach (ICD-10-PCS; principal; 2020-04-05)
PROC: 30233N1 Transfusion of Nonautologous Red Blood Cells into Peripheral Vein, Percutaneous Approach (ICD-10-PCS; principal; 2020-04-05)
DX: D69.6 Thrombocytopenia, unspecified (principal); D64.9 Anemia, unspecified; Z88.1 Allergy status to other antibiotic agents
CPT/HCPCS: 36415; 36430; 85025; 86850; 86900; 86901; 86922; P9036; P9040; Q0163

== ENCOUNTER 2020-04-09 09:17 | Day surgery (SDC) | payer BC ==
[2020-04-09] MEDS ORDERED: diphenhydrAMINE 25 MG CAP PO SCH (09:45)
[2020-04-09] MEDS ORDERED: Acetaminophen 500 MG TAB PO SCH (09:45)
[2020-04-09 11:51] VITALS: BP 131/66; TEMP 98.1
== END 2020-04-09 11:53 | disposition home or self-care (01) ==
LOC: ONC/OP 09:17
PROVIDERS: ATTEND Internal Medicine Hematology & Oncology
PROC: 30233R1 Transfusion of Nonautologous Platelets into Peripheral Vein, Percutaneous Approach (ICD-10-PCS; principal; 2020-04-09)
DX: D69.6 Thrombocytopenia, unspecified (principal); D64.9 Anemia, unspecified; Z88.1 Allergy status to other antibiotic agents
CPT/HCPCS: 36430; 86850; 86900; 86901; P9036; Q0163

== ENCOUNTER 2020-04-11 10:28 | Outpatient (CLI) | payer BC | END 2020-04-11 10:29 | disposition home or self-care (01) | LOC: CT 10:28 | PROVIDERS: ATTEND Internal Medicine Hematology & Oncology | DX: C90.00 Multiple myeloma not having achieved remission (principal); C61 Malignant neoplasm of prostate; C79.51 Secondary malignant neoplasm of bone; M54.9 Dorsalgia, unspecified; M89.9 Disorder of bone, unspecified; M85.88 Other specified disorders of bone density and structure, other site; M43.9 Deforming dorsopathy, unspecified | CPT/HCPCS: 72128; 72131 ==

== ENCOUNTER 2020-04-15 09:11 | Day surgery (SDC) | payer BC ==
[2020-04-15] MEDS ORDERED: Acetaminophen 500 MG TAB PO SCH (09:45)
[2020-04-15] MEDS ORDERED: diphenhydrAMINE 25 MG CAP PO SCH (09:45)
[2020-04-15] MEDS ORDERED: Sodium Chloride 0.9% 20 ML ONE (10:20)
[2020-04-15 15:53] VITALS: BP 112/65; TEMP 97.8
== END 2020-04-15 16:04 | disposition home or self-care (01) ==
LOC: ONC/OP 09:11
PROVIDERS: ATTEND Internal Medicine Hematology & Oncology
PROC: 30233R1 Transfusion of Nonautologous Platelets into Peripheral Vein, Percutaneous Approach (ICD-10-PCS; principal; 2020-04-15)
PROC: 30233N1 Transfusion of Nonautologous Red Blood Cells into Peripheral Vein, Percutaneous Approach (ICD-10-PCS; principal; 2020-04-15)
DX: D69.6 Thrombocytopenia, unspecified (principal); D64.9 Anemia, unspecified; Z88.1 Allergy status to other antibiotic agents
CPT/HCPCS: 36430; 86850; 86900; 86901; 86922; P9036; P9040; Q0163

== ENCOUNTER 2020-04-25 16:15 | Day surgery (SDC) | payer BC ==
[2020-04-25] MEDS ORDERED: diphenhydrAMINE 25 MG CAP PO SCH (16:45)
[2020-04-25] MEDS ORDERED: Acetaminophen 500 MG TAB PO SCH (16:45)
[2020-04-26 00:33] VITALS: BP 100/57; TEMP 97.8
[2020-04-26 01:07] LABS: #Lymphocytes 0.5 thou/uL (1.20-3.40); #Monocytes 0.1 thou/uL (0.11-0.59); #Neutrophils 1.3 thou/uL (1.40-6.50); %Basophils 1.7 % (0.0-1.0); %Eosinophils 0.1 % (0.0-10.0); %Lymphocytes 26.2 % (21.0-51.0); %Monocytes 4.5 % (0.0-10.0); %Neutrophils 67.5 % (42.0-75.0); Hemoglobin 6.5 g/dL (14.0-18.0); Mean Corpuscular HGB CONC 36.2 g/dL (32.0-36.0); Mean Corpuscular Hemoglobin 31.2 pg (27.0-31.0); Mean Corpuscular Volume 86.3 fL (78.0-98.0); Mean Platelet Volume 7.3 fL (7.4-10.4); Platelet Count 38 thou/uL (130-400); RBC Distribution Width 13.2 % (11.5-14.5); Red Blood Cell (RBC) Count 2.07 mill/uL (4.70-6.10); White Blood Cell (WBC) Count 1.9 thou/uL (4.8-10.8)
== END 2020-04-26 01:06 | disposition home or self-care (01) ==
LOC: ONC 16:15 → ONC/OP 16:15
PROVIDERS: ATTEND Internal Medicine Hematology & Oncology
PROC: 30233R1 Transfusion of Nonautologous Platelets into Peripheral Vein, Percutaneous Approach (ICD-10-PCS; principal; 2020-04-26)
PROC: 30233N1 Transfusion of Nonautologous Red Blood Cells into Peripheral Vein, Percutaneous Approach (ICD-10-PCS; principal; 2020-04-26)
DX: D64.9 Anemia, unspecified (principal); D69.6 Thrombocytopenia, unspecified; Z88.1 Allergy status to other antibiotic agents
CPT/HCPCS: 36415; 36430; 85025; 86850; 86900; 86901; 86922; P9036; P9040; Q0163

== ENCOUNTER 2020-05-04 13:29 | Inpatient (IN) | payer BC ==
[2020-05-04 14:44] LABS: Hemoglobin 6.5 g/dL (14.0-18.0); Mean Corpuscular HGB CONC 35.6 g/dL (32.0-36.0); Mean Corpuscular Hemoglobin 30.6 pg (27.0-31.0); Mean Corpuscular Volume 86.1 fL (78.0-98.0); Mean Platelet Volume 14.1 fL (7.4-10.4); Platelet Count 2 thou/uL (130-400); RBC Distribution Width 13.4 % (11.5-14.5); Red Blood Cell (RBC) Count 2.13 mill/uL (4.70-6.10); White Blood Cell (WBC) Count 3.9 thou/uL (4.8-10.8)
[2020-05-04] MEDS ORDERED: Oxymetazoline HCl 0.05% (30 ML BOT) ONE (14:47)
[2020-05-04 15:09] LABS: Band 9 % (5-11); Lymphocytes 34 % (21-51); MDiff Complete? YES; Metamyelocyte 2 % (0-0); Monocytes 7 % (0-10); Myelocyte 1 % (0-0); Neutrophil 46 % (42-75); Platelet Morphology Comment Appears Decreased; Polychromasia SLIGHT = 2-3 cells (100X) (0-2/hpf); Reactive Lymphocytes 1 % (0-10)
[2020-05-04 15:16] LABS: Anion Gap 15 mmol/L (10-20); BUN (Urea Nitrogen) 24 mg/dL (8.4-25.7); Calc. Creatinine Clearance 0 mL/min (70-130); Calcium 9.6 mg/dL (7.8-10.44); Carbon Dioxide 24 mmol/L (23-31); Chloride 101 mmol/L (98-107); Glucose 95 mg/dL (80-115); Potassium 3.7 mmol/L (3.5-5.1); Sodium 136 mmol/L (136-145)
[2020-05-04] MEDS ORDERED: Tranexamic Acid 1,000 MG/10 ML VIAL ONE (15:44)
[2020-05-04] MEDS ORDERED: Tranexamic Acid 1,000 MG in Sodium Chloride 0.9% 250 ML 250 ML IVPB ONE (16:00)
[2020-05-04] MEDS ORDERED: Ondansetron PF 4 MG/2 ML Vial IVP PRN (17:18)
[2020-05-04] MEDS ORDERED: Acetaminophen 325 MG TAB PO PRN (17:18)
[2020-05-04] MEDS ORDERED: HYDROcodone/Acetaminophen 10/325 mg Tablet ONE (18:36)
[2020-05-04 19:16] LABS: SARS-CoV-2 NAA Rapid Test Not Detected (NotDetected)
[2020-05-04] MEDS ORDERED: Morphine 2 MG/ML VIAL SLOW IVP PRN (20:49)
[2020-05-04] MEDS ORDERED: Pregabalin 75 MG CAP PO SCH ×2 (21:00→23:00)
[2020-05-04 21:59] VITALS: BMI 23.6
[2020-05-04] MEDS: Senokot S 8.6-50 MG TAB PO SCH (22:04)
[2020-05-05] MEDS: HYDROcodone/Acetaminophen 10/325 mg Tablet PO PRN ×2 (00:43→05:26)
[2020-05-05] MEDS ORDERED: Levothyroxine Sodium 75 MCG TAB PO SCH ×2 (06:00→09:00)
[2020-05-05] MEDS ORDERED: oxyCODONE 5 MG TAB PO PRN (07:25)
[2020-05-05] MEDS ORDERED: Non-Formulary Item 1 EACH (Prochlorperazine Maleate [Compazine] 10 MG Tab) PO PRN (07:25)
[2020-05-05] MEDS ORDERED: Non-Formulary Item 1 EACH (Ondansetron Hcl [Zofran] 4 MG Tab) PO PRN (07:25)
[2020-05-05] MEDS ORDERED: Ondansetron ODT 8 MG TAB PO PRN (07:45)
[2020-05-05] MEDS ORDERED: Prochlorperazine Maleate 5 MG TAB PO PRN (07:46)
[2020-05-05] MEDS: Senokot S 8.6-50 MG TAB PO SCH (08:28)
[2020-05-05 08:38] LABS: Hemoglobin 6.3 g/dL (14.0-18.0); Mean Corpuscular HGB CONC 35.3 g/dL (32.0-36.0); Mean Corpuscular Hemoglobin 30.3 pg (27.0-31.0); Mean Corpuscular Volume 85.9 fL (78.0-98.0); Mean Platelet Volume 6.8 fL (7.4-10.4); Platelet Count 60 thou/uL (130-400); RBC Distribution Width 13.2 % (11.5-14.5); Red Blood Cell (RBC) Count 2.09 mill/uL (4.70-6.10); White Blood Cell (WBC) Count 2.8 thou/uL (4.8-10.8)
[2020-05-05] MEDS ORDERED: Rosuvastatin 20 MG TAB PO SCH (09:00)
[2020-05-05] MEDS ORDERED: Morphine ER 30 MG TAB PO SCH (09:00)
[2020-05-05] MEDS ORDERED: MORPHINE SULFATE 60 MG PO SCH (09:00)
[2020-05-05] MEDS ORDERED: Pregabalin 75 MG CAP PO SCH (09:00)
[2020-05-05] MEDS ORDERED: Montelukast Sodium 10 mg Tablet PO SCH (09:00)
[2020-05-05] MEDS ORDERED: Citalopram 20 MG TAB PO SCH ×2 (09:00)
[2020-05-05 09:45] LABS: Anion Gap 14 mmol/L (10-20); BUN (Urea Nitrogen) 17 mg/dL (8.4-25.7); Calc. Creatinine Clearance 121 mL/min (70-130); Calcium 8.7 mg/dL (7.8-10.44); Carbon Dioxide 21 mmol/L (23-31); Chloride 101 mmol/L (98-107); Glucose 85 mg/dL (80-115); Potassium 3.7 mmol/L (3.5-5.1); Sodium 132 mmol/L (136-145)
[2020-05-05 11:16] LABS: Band 14 % (5-11); Hypochromia SLIGHT = 6-15 cells (100X) (0-5/hpf); Lymphocytes 42 % (21-51); MDiff Complete? YES; Metamyelocyte 3 % (0-0); Monocytes 7 % (0-10); Neutrophil 33 % (42-75); Nucleated RBC 1 % (0); Platelet Morphology Comment Appears Decreased; Polychromasia SLIGHT = 2-3 cells (100X) (0-2/hpf); Reactive Lymphocytes 1 % (0-10)
[2020-05-05 14:54] VITALS: BP 117/64
[2020-05-05 16:32] VITALS: TEMP 98.6
== END 2020-05-05 17:35 | disposition home or self-care (01) | DRG 809 ==
LOC: ERS 13:29 → 2SE 16:15
PROVIDERS: ADMIT Internal Medicine; ATTEND Internal Medicine
PROC: 2Y41X5Z Packing of Nasal Region using Packing Material (ICD-10-PCS; principal; 2020-05-04)
PROC: 30233R1 Transfusion of Nonautologous Platelets into Peripheral Vein, Percutaneous Approach (ICD-10-PCS; 2020-05-04)
PROC: 30233N1 Transfusion of Nonautologous Red Blood Cells into Peripheral Vein, Percutaneous Approach (ICD-10-PCS; 2020-05-04)
DX: D61.810 Antineoplastic chemotherapy induced pancytopenia (principal); C90.00 Multiple myeloma not having achieved remission; R04.0 Epistaxis; E78.00 Pure hypercholesterolemia, unspecified; E03.9 Hypothyroidism, unspecified; F17.210 Nicotine dependence, cigarettes, uncomplicated; T45.1X5A Adverse effect of antineoplastic and immunosuppressive drugs, initial encounter; F32.9 Major depressive disorder, single episode, unspecified; Z88.8 Allergy status to other drugs, medicaments and biological substances; Z79.899 Other long term (current) drug therapy; Z79.890 Hormone replacement therapy; Z85.46 Personal history of malignant neoplasm of prostate; Z90.79 Acquired absence of other genital organ(s); Z92.3 Personal history of irradiation
CPT/HCPCS: 0240U; 30901; 30903; 36415; 36430; 80048; 85025; 86850; 86900; 86901; 86922; 96365; 96366; J2270; J7050; P9036; P9040

== ENCOUNTER → 2020-05-08 | Day surgery (SDC) | payer BC ==
[~2020-05-08] MED LIST changes: -Sodium Chloride 0.9% 20 ML ONE; +diphenhydrAMINE 25 MG CAP PO SCH
[2020-05-08 14:36] VITALS: BP 92/55; TEMP 97.9
== END | disposition home or self-care (01) ==
LOC: ONC/OP 08:33
PROVIDERS: ATTEND Internal Medicine Hematology & Oncology
PROC: 30233N1 Transfusion of Nonautologous Red Blood Cells into Peripheral Vein, Percutaneous Approach (ICD-10-PCS; principal; 2020-05-08)
DX: D64.9 Anemia, unspecified (principal); Z88.1 Allergy status to other antibiotic agents
CPT/HCPCS: 36430; 77412; 86850; 86900; 86901; 86922; P9040; Q0163

== ENCOUNTER 2020-05-13 11:15 | Day surgery (SDC) | payer BC ==
[2020-05-13] MEDS ORDERED: diphenhydrAMINE 25 MG CAP PO SCH (11:45)
[2020-05-13] MEDS ORDERED: Acetaminophen 500 MG TAB PO SCH (11:45)
[2020-05-13] MEDS ORDERED: Sodium Chloride 0.9% 20 ML ONE (11:50)
[2020-05-13 13:09] VITALS: TEMP 98
[2020-05-13 13:45] VITALS: BP 134/71
== END 2020-05-13 14:29 | disposition home or self-care (01) ==
LOC: ONC/OP 11:15
PROVIDERS: ATTEND Internal Medicine Hematology & Oncology
PROC: 30233N1 Transfusion of Nonautologous Red Blood Cells into Peripheral Vein, Percutaneous Approach (ICD-10-PCS; principal; 2020-05-13)
PROC: 30233R1 Transfusion of Nonautologous Platelets into Peripheral Vein, Percutaneous Approach (ICD-10-PCS; principal; 2020-05-13)
DX: D69.6 Thrombocytopenia, unspecified (principal); D64.9 Anemia, unspecified; Z88.1 Allergy status to other antibiotic agents
CPT/HCPCS: 36430; 86850; 86900; 86901; 86922; P9036; Q0163

== ENCOUNTER 2020-05-13 20:08 | Inpatient (IN) | payer BC ==
[~2020-05-13 20:08] MED LIST changes: -Acetaminophen 500 MG TAB PO SCH; +Magnevist 469MG/ML 20 ML VIAL ONE; -diphenhydrAMINE 25 MG CAP PO SCH
[2020-05-13] MEDS ORDERED: Fentanyl 100 MCG/2 ML VIAL ONE (20:46)
[2020-05-13 21:09] LABS: Hemoglobin 6.1 g/dL (14.0-18.0); Mean Corpuscular Hemoglobin 30.7 pg (27.0-31.0); Mean Corpuscular Volume 87.8 fL (78.0-98.0); Red Blood Cell (RBC) Count 1.98 mill/uL (4.70-6.10); White Blood Cell (WBC) Count 2.1 thou/uL (4.8-10.8)
[2020-05-13 21:24] LABS: ALT (SGPT) 9 U/L (8-55); AST (SGOT) 16 U/L (5-34); Albumin 3.1 g/dL (3.4-4.8); Alkaline Phosphatase 81 U/L (40-110); Anion Gap 12 mmol/L (10-20); BUN (Urea Nitrogen) 13 mg/dL (8.4-25.7); Bilirubin, Total 0.5 mg/dL (0.2-1.2); CK (CPK) 51 U/L (30-200); CRP (Inflammatory) 14.11 mg/dL (= or < 0.5); Calc. Creatinine Clearance 0 mL/min (70-130); Calcium 8.7 mg/dL (7.8-10.44); Carbon Dioxide 23 mmol/L (23-31); Chloride 100 mmol/L (98-107); Globulin 5.8 g/dL (2.4-3.5); Glucose 91 mg/dL (80-115); Lipase 4 U/L (8-78); Potassium 3.8 mmol/L (3.5-5.1); Protein, Total 8.9 g/dL (5.8-8.1); Sodium 131 mmol/L (136-145)
[2020-05-13 21:35] LABS: Band 20 % (5-11); Lymphocytes 37 % (21-51); MDiff Complete? YES; Mean Platelet Volume 7.2 fL (7.4-10.4); Monocytes 7 % (0-10); Neutrophil 36 % (42-75); Platelet Count 55 thou/uL (130-400); Platelet Morphology Comment Appears Decreased
[2020-05-13 21:51] LABS: Bacteria/HPF 3+ HPF (None Seen); Bilirubin Negative (Negative); Blood, Urine Trace (Negative); Clarity Clear (Clear); Glucose, Urine (Dipstick) Normal (Negative); Ketone, Urine Negative (Negative); Leukocyte Negative Leu/uL (Negative); Nitrite Negative (Negative); Protein, Urine (Dipstick) Negative (Neg-Trace); RBC/HPF 0-3 HPF (0-3); Squamous Epithelial None Seen HPF (0-3); Urobilinogen Normal mg/dL (Less than 2); WBC/HPF 0-3 HPF (0-3); pH, Urine 5.5 (5.0-9.0)
[2020-05-13] MEDS ORDERED: HYDROmorphone 0.5 MG/0.5 ML SYRINGE ONE (22:06)
[2020-05-13] MEDS ORDERED: Dexamethasone 4 mg/ml Vial SLOW IVP SCH ×2 (23:45→23:59)
[2020-05-14 00:44] LABS: Lactic Acid 1.9 mmol/L (0.5-2.2)
[2020-05-14] MEDS ORDERED: Dexamethasone 4 mg/ml Vial ONE ×2 (02:17→06:05)
[2020-05-14 04:03] VITALS: BMI 24.3
[2020-05-14 05:26] LABS: #Lymphocytes 0.6 thou/uL (1.20-3.40); #Monocytes 0.2 thou/uL (0.11-0.59); #Neutrophils 1.7 thou/uL (1.40-6.50); %Eosinophils 0.6 % (0.0-10.0); %Lymphocytes 23.3 % (21.0-51.0); %Monocytes 9.3 % (0.0-10.0); %Neutrophils 66.9 % (42.0-75.0); Hemoglobin 7.8 g/dL (14.0-18.0); Mean Corpuscular HGB CONC 33.5 g/dL (32.0-36.0); Mean Corpuscular Hemoglobin 29.8 pg (27.0-31.0); Mean Corpuscular Volume 88.8 fL (78.0-98.0); Mean Platelet Volume 7.9 fL (7.4-10.4); Platelet Count 51 thou/uL (130-400); RBC Distribution Width 13.8 % (11.5-14.5); White Blood Cell (WBC) Count 2.6 thou/uL (4.8-10.8)
[2020-05-14 05:45] LABS: SARS-CoV-2 PCR by NAA Not Detected (NotDetected)
[2020-05-14] MEDS: Dexamethasone 4 mg/ml Vial SLOW IVP SCH ×3 (06:10→18:00)
[2020-05-14] MEDS ORDERED: Acetaminophen/Codeine 30-300mg Tablet PO PRN ×2 (07:29)
[2020-05-14] MEDS ORDERED: Morphine 2 MG/ML VIAL ONE (07:35)
[2020-05-14] MEDS ORDERED: Morphine 2 MG/ML VIAL SLOW IVP SCH (08:00)
[2020-05-14] MEDS ORDERED: Acetaminophen/Codeine 30-300mg Tablet ONE (08:41)
[2020-05-14] MEDS ORDERED: HYDROmorphone 0.5 MG/0.5 ML SYRINGE ONE ×2 (10:00→12:41)
[2020-05-14] MEDS: HYDROmorphone 0.5 MG/0.5 ML SYRINGE SLOW IVP PRN ×3 (10:00→12:53)
[2020-05-14 10:39] LABS: Thyroid Stimulating Hormone 0.6248 uIU/mL (0.35-4.94)
[2020-05-14] MEDS ORDERED: Dexamethasone 10 MG/ML VIAL ONE (12:41)
[2020-05-14] MEDS ORDERED: Pantoprazole 40 MG VIAL ONE (12:44)
[2020-05-14] MEDS: Pantoprazole 40 MG VIAL IVP SCH ×2 (12:53→20:54)
[2020-05-14] MEDS ORDERED: oxyCODONE 5 MG TAB PO PRN (13:41)
[2020-05-14] MEDS ORDERED: HYDROmorphone 0.5 MG/0.5 ML SYRINGE SLOW IVP SCH ×2 (13:45→18:15)
[2020-05-14] MEDS ORDERED: Morphine 4 MG/ML VIAL ONE (14:11)
[2020-05-14] MEDS: Morphine 4 MG/ML VIAL SLOW IVP SCH ×3 (14:15→17:52)
[2020-05-14] MEDS ORDERED: Fentanyl 100 MCG/2 ML VIAL SLOW IVP PRN (18:02)
[2020-05-14] MEDS ORDERED: Naloxone HCl 0.4 mg/ml Vial IV PRN (18:21)
[2020-05-14] MEDS ORDERED: Zolpidem Tartrate 5 MG TAB PO PRN (18:21)
[2020-05-14] MEDS ORDERED: Promethazine HCl 25 MG/ML VIAL IM PRN (18:21)
[2020-05-14] MEDS ORDERED: diphenhydrAMINE 25 MG CAP PO PRN (18:21)
[2020-05-14] MEDS ORDERED: diphenhydrAMINE 50 MG/ML VIAL IM PRN (18:21)
[2020-05-14] MEDS ORDERED: diphenhydrAMINE 50 MG/ML VIAL IVP PRN (18:21)
[2020-05-14] MEDS ORDERED: Communication Order-Pharmacy FS SCH (18:30)
[2020-05-14 18:38] LABS: Hemoglobin 8.9 g/dL (14.0-18.0); Mean Corpuscular HGB CONC 34.1 g/dL (32.0-36.0); Mean Corpuscular Hemoglobin 30.2 pg (27.0-31.0); Mean Corpuscular Volume 88.7 fL (78.0-98.0); Mean Platelet Volume 7.6 fL (7.4-10.4); Platelet Count 72 thou/uL (130-400); RBC Distribution Width 13.9 % (11.5-14.5); Red Blood Cell (RBC) Count 2.93 mill/uL (4.70-6.10)
[2020-05-14 18:43] LABS: Band 20 % (5-11); Lymphocytes 13 % (21-51); MDiff Complete? YES; Metamyelocyte 1 % (0-0); Monocytes 5 % (0-10); Neutrophil 49 % (42-75); Platelet Morphology Comment Appears Decreased; RBC Morphology Normal; Reactive Lymphocytes 12 % (0-10)
[2020-05-14] MEDS: HYDROmorphone 10 mg/100 ml CADD IVPB PRN (19:26)
[2020-05-14] MEDS ORDERED: Morphine 4 MG/ML VIAL SLOW IVP SCH (21:00)
[2020-05-15] MEDS: HYDROmorphone 10 mg/100 ml CADD IVPB PRN ×4 (00:31→21:02)
[2020-05-15] MEDS: Dexamethasone 4 mg/ml Vial SLOW IVP SCH ×5 (00:36→23:23)
[2020-05-15 05:01] LABS: Hemoglobin 8.3 g/dL (14.0-18.0); Mean Corpuscular HGB CONC 34.4 g/dL (32.0-36.0); Mean Corpuscular Hemoglobin 30.6 pg (27.0-31.0); Mean Corpuscular Volume 88.8 fL (78.0-98.0); Mean Platelet Volume 8.2 fL (7.4-10.4); Platelet Count 47 thou/uL (130-400); RBC Distribution Width 13.7 % (11.5-14.5); Red Blood Cell (RBC) Count 2.71 mill/uL (4.70-6.10); White Blood Cell (WBC) Count 3.6 thou/uL (4.8-10.8)
[2020-05-15 05:17] LABS: Anion Gap 14 mmol/L (10-20); BUN (Urea Nitrogen) 16 mg/dL (8.4-25.7); Calc. Creatinine Clearance 132 mL/min (70-130); Calcium 8.2 mg/dL (7.8-10.44); Carbon Dioxide 20 mmol/L (23-31); Chloride 103 mmol/L (98-107); Glucose 131 mg/dL (80-115); Potassium 3.9 mmol/L (3.5-5.1); Sodium 133 mmol/L (136-145)
[2020-05-15 05:29] LABS: Band 20 % (5-11); Lymphocytes 20 % (21-51); MDiff Complete? YES; Metamyelocyte 1 % (0-0); Monocytes 10 % (0-10); Myelocyte 2 % (0-0); Neutrophil 46 % (42-75); Platelet Morphology Comment Appears Decreased
[2020-05-15] MEDS: Pantoprazole 40 MG VIAL IVP SCH ×2 (08:04→20:45)
[2020-05-15] MEDS: Folic Acid 1 MG TAB PO SCH (08:04)
[2020-05-15] MEDS: Ondansetron PF 4 MG/2 ML Vial IVP PRN (18:24)
[2020-05-16] MEDS: HYDROmorphone 10 mg/100 ml CADD IVPB PRN ×2 (05:27→12:43)
[2020-05-16] MEDS: Dexamethasone 4 mg/ml Vial SLOW IVP SCH ×3 (05:28→17:31)
[2020-05-16 05:38] LABS: Hemoglobin 7.4 g/dL (14.0-18.0); Mean Corpuscular HGB CONC 35.1 g/dL (32.0-36.0); Mean Corpuscular Hemoglobin 30.8 pg (27.0-31.0); Mean Corpuscular Volume 87.7 fL (78.0-98.0); Mean Platelet Volume 8.3 fL (7.4-10.4); Platelet Count 27 thou/uL (130-400); RBC Distribution Width 13.7 % (11.5-14.5); White Blood Cell (WBC) Count 3.3 thou/uL (4.8-10.8)
[2020-05-16 05:54] LABS: Anion Gap 13 mmol/L (10-20); BUN (Urea Nitrogen) 17 mg/dL (8.4-25.7); Calc. Creatinine Clearance 141 mL/min (70-130); Carbon Dioxide 19 mmol/L (23-31); Chloride 104 mmol/L (98-107); Glucose 122 mg/dL (80-115); Potassium 4.4 mmol/L (3.5-5.1); Sodium 132 mmol/L (136-145)
[2020-05-16 05:56] LABS: Band 14 % (5-11); Lymphocytes 13 % (21-51); MDiff Complete? YES; Metamyelocyte 1 % (0-0); Monocytes 6 % (0-10); Neutrophil 66 % (42-75); Platelet Morphology Comment Appears Decreased
[2020-05-16 08:16] LABS: Lyme IgG/IgM AB <0.91 ISR (0.00-0.90)
[2020-05-16] MEDS: Pantoprazole 40 MG VIAL IVP SCH ×2 (08:33→19:59)
[2020-05-16] MEDS: Folic Acid 1 MG TAB PO SCH (08:37)
[2020-05-16] MEDS ORDERED: Morphine 4 MG/ML VIAL SLOW IVP SCH (10:45)
[2020-05-16] MEDS ORDERED: Polyethylene Glycol 3350 17 GM Packet PO PRN (13:59)
[2020-05-16] MEDS ORDERED: Milk Of Magnesia 30 ML UDCUP PO PRN (13:59)
[2020-05-16] MEDS: Senokot S 8.6-50 MG TAB PO SCH (19:59)
[2020-05-17] MEDS: Dexamethasone 4 mg/ml Vial SLOW IVP SCH ×4 (00:34→17:33)
[2020-05-17] MEDS: HYDROmorphone 10 mg/100 ml CADD IVPB PRN ×2 (00:35→14:10)
[2020-05-17] MEDS ORDERED: Ondansetron ODT 4 MG TAB PO PRN (04:40)
[2020-05-17] MEDS: Ondansetron PF 4 MG/2 ML Vial IVP PRN (04:45)
[2020-05-17] MEDS ORDERED: Bisacodyl 5 MG TAB PO SCH (04:45)
[2020-05-17 05:02] LABS: Hemoglobin 7.4 g/dL (14.0-18.0); Mean Corpuscular Hemoglobin 31.6 pg (27.0-31.0); Mean Corpuscular Volume 87.8 fL (78.0-98.0); Mean Platelet Volume 9.8 fL (7.4-10.4); Platelet Count 18 thou/uL (130-400); RBC Distribution Width 13.7 % (11.5-14.5); Red Blood Cell (RBC) Count 2.33 mill/uL (4.70-6.10); White Blood Cell (WBC) Count 3.3 thou/uL (4.8-10.8)
[2020-05-17 05:16] LABS: Anion Gap 14 mmol/L (10-20); BUN (Urea Nitrogen) 16 mg/dL (8.4-25.7); Calc. Creatinine Clearance 148 mL/min (70-130); Calcium 8.2 mg/dL (7.8-10.44); Carbon Dioxide 17 mmol/L (23-31); Chloride 104 mmol/L (98-107); Glucose 112 mg/dL (80-115); Potassium 4.1 mmol/L (3.5-5.1); Sodium 131 mmol/L (136-145)
[2020-05-17 05:22] LABS: Lymphocytes 18 % (21-51); MDiff Complete? YES; Monocytes 6 % (0-10); Neutrophil 76 % (42-75); Platelet Morphology Comment Appears Decreased
[2020-05-17] MEDS: Folic Acid 1 MG TAB PO SCH (09:14)
[2020-05-17] MEDS: Senokot S 8.6-50 MG TAB PO SCH ×2 (09:14→20:28)
[2020-05-17] MEDS: Pantoprazole 40 MG VIAL IVP SCH ×2 (09:15→20:28)
[2020-05-18] MEDS: HYDROmorphone 10 mg/100 ml CADD IVPB PRN ×4 (00:49→21:59)
[2020-05-18] MEDS: Dexamethasone 4 mg/ml Vial SLOW IVP SCH ×5 (00:59→23:25)
[2020-05-18 06:02] LABS: Hemoglobin 7.2 g/dL (14.0-18.0); Mean Corpuscular HGB CONC 34.9 g/dL (32.0-36.0); Mean Corpuscular Hemoglobin 30.6 pg (27.0-31.0); Mean Corpuscular Volume 87.7 fL (78.0-98.0); Mean Platelet Volume 13.3 fL (7.4-10.4); Platelet Count 6 thou/uL (130-400); RBC Distribution Width 13.7 % (11.5-14.5); Red Blood Cell (RBC) Count 2.36 mill/uL (4.70-6.10)
[2020-05-18 06:17] LABS: Anion Gap 14 mmol/L (10-20); BUN (Urea Nitrogen) 19 mg/dL (8.4-25.7); Calc. Creatinine Clearance 146 mL/min (70-130); Calcium 8.1 mg/dL (7.8-10.44); Carbon Dioxide 18 mmol/L (23-31); Chloride 105 mmol/L (98-107); Glucose 111 mg/dL (80-115); Potassium 4.4 mmol/L (3.5-5.1); Sodium 133 mmol/L (136-145)
[2020-05-18 06:18] LABS: MDiff Complete? YES
[2020-05-18 06:19] LABS: Lymphocytes 23 % (21-51); Monocytes 4 % (0-10); Neutrophil 73 % (42-75); Nucleated RBC 3 % (0); Platelet Morphology Comment Appears Decreased
[2020-05-18] MEDS ORDERED: Lidocaine 5% Patch TD SCH (09:00)
[2020-05-18] MEDS ORDERED: Simethicone Chewable 80 MG TAB PO SCH (09:45)
[2020-05-18] MEDS: Senokot S 8.6-50 MG TAB PO SCH ×2 (10:27→20:16)
[2020-05-18] MEDS: Pantoprazole 40 MG VIAL IVP SCH ×2 (10:27→20:16)
[2020-05-18] MEDS: Folic Acid 1 MG TAB PO SCH (10:27)
[2020-05-18] MEDS: Simethicone Chewable 80 MG TAB PO SCH ×3 (13:33→20:16)
[2020-05-18] MEDS ORDERED: Transdermal Patch Removal TOP SCH (21:00)
[2020-05-19] MEDS: Dexamethasone 4 mg/ml Vial SLOW IVP SCH ×4 (05:29→23:41)
[2020-05-19] MEDS: HYDROmorphone 10 mg/100 ml CADD IVPB PRN ×3 (05:31→19:00)
[2020-05-19 06:01] LABS: Band 6 % (5-11); Hemoglobin 7.5 g/dL (14.0-18.0); Hypochromia SLIGHT = 6-15 cells (100X) (0-5/hpf); MDiff Complete? YES; Mean Corpuscular HGB CONC 35.2 g/dL (32.0-36.0); Mean Corpuscular Hemoglobin 30.4 pg (27.0-31.0); Mean Corpuscular Volume 86.5 fL (78.0-98.0); Mean Platelet Volume 7.7 fL (7.4-10.4); Metamyelocyte 2 % (0-0); Monocytes 18 % (0-10); Neutrophil 74 % (42-75); Platelet Count 53 thou/uL (130-400); Platelet Morphology Comment Appears Decreased; RBC Distribution Width 13.8 % (11.5-14.5); Red Blood Cell (RBC) Count 2.45 mill/uL (4.70-6.10); White Blood Cell (WBC) Count 2.9 thou/uL (4.8-10.8)
[2020-05-19] MEDS ORDERED: Aluminum & Magnesium Hydroxide 60 ML, Lidocaine 2% Viscous Solution 30 ML, diphenhydrAM... SSW PRN (08:35)
[2020-05-19] MEDS: Pantoprazole 40 MG VIAL IVP SCH ×2 (08:51→20:33)
[2020-05-19] MEDS: Senokot S 8.6-50 MG TAB PO SCH ×2 (08:51→20:33)
[2020-05-19] MEDS: Simethicone Chewable 80 MG TAB PO SCH ×4 (08:51→20:33)
[2020-05-19] MEDS: Folic Acid 1 MG TAB PO SCH (08:51)
[2020-05-19] MEDS ORDERED: Morphine 4 MG/ML VIAL SLOW IVP SCH (11:15)
[2020-05-20] MEDS: HYDROmorphone 10 mg/100 ml CADD IVPB PRN ×3 (03:39→19:05)
[2020-05-20] MEDS: Dexamethasone 4 mg/ml Vial SLOW IVP SCH ×4 (05:30→23:39)
[2020-05-20] MEDS: Simethicone Chewable 80 MG TAB PO SCH ×4 (09:11→20:53)
[2020-05-20] MEDS: Pantoprazole 40 MG VIAL IVP SCH (09:11)
[2020-05-20] MEDS: Folic Acid 1 MG TAB PO SCH (09:12)
[2020-05-20] MEDS: Senokot S 8.6-50 MG TAB PO SCH ×2 (09:12→20:53)
[2020-05-20] MEDS: Morphine 2 MG/ML VIAL SLOW IVP PRN (11:05)
[2020-05-20] MEDS ORDERED: Aluminum & Magnesium Hydroxide 60 ML, diphenhydrAMINE 150 MG, Lidocaine 2% Viscous Solu... SSW PRN (11:50)
[2020-05-21] MEDS: HYDROmorphone 10 mg/100 ml CADD IVPB PRN ×3 (02:27→18:59)
[2020-05-21] MEDS: Dexamethasone 4 mg/ml Vial SLOW IVP SCH ×3 (05:16→18:07)
[2020-05-21 06:19] LABS: Hemoglobin 7.5 g/dL (14.0-18.0); Mean Corpuscular HGB CONC 34.9 g/dL (32.0-36.0); Mean Corpuscular Hemoglobin 30.1 pg (27.0-31.0); Mean Corpuscular Volume 86.3 fL (78.0-98.0); RBC Distribution Width 14.3 % (11.5-14.5); White Blood Cell (WBC) Count 2.7 thou/uL (4.8-10.8)
[2020-05-21 06:28] LABS: Mean Platelet Volume 8.4 fL (7.4-10.4); Platelet Count 20 thou/uL (130-400)
[2020-05-21 06:29] LABS: Band 6 % (5-11); Hypochromia SLIGHT = 6-15 cells (100X) (0-5/hpf); Lymphocytes 10 % (21-51); MDiff Complete? YES; Monocytes 18 % (0-10); Neutrophil 66 % (42-75); Platelet Morphology Comment Appears Decreased
[2020-05-21 06:33] LABS: Anion Gap 14 mmol/L (10-20); BUN (Urea Nitrogen) 21 mg/dL (8.4-25.7); Calc. Creatinine Clearance 157 mL/min (70-130); Calcium 8.1 mg/dL (7.8-10.44); Carbon Dioxide 17 mmol/L (23-31); Chloride 104 mmol/L (98-107); Glucose 108 mg/dL (80-115); Potassium 4.3 mmol/L (3.5-5.1); Sodium 131 mmol/L (136-145)
[2020-05-21] MEDS: Folic Acid 1 MG TAB PO SCH (09:43)
[2020-05-21] MEDS: Senokot S 8.6-50 MG TAB PO SCH ×2 (09:43→21:16)
[2020-05-21] MEDS: Simethicone Chewable 80 MG TAB PO SCH ×4 (09:44→21:16)
[2020-05-21] MEDS: Morphine 2 MG/ML VIAL SLOW IVP PRN (11:12)
[2020-05-22] MEDS: Dexamethasone 4 mg/ml Vial SLOW IVP SCH ×2 (00:13→05:17)
[2020-05-22] MEDS: HYDROmorphone 10 mg/100 ml CADD IVPB PRN ×3 (02:18→18:35)
[2020-05-22] MEDS: Folic Acid 1 MG TAB PO SCH (08:25)
[2020-05-22] MEDS: Simethicone Chewable 80 MG TAB PO SCH ×4 (08:26→20:07)
[2020-05-22] MEDS: Senokot S 8.6-50 MG TAB PO SCH ×2 (08:26→19:57)
[2020-05-22] MEDS: Morphine 2 MG/ML VIAL SLOW IVP PRN (09:01)
[2020-05-22] MEDS: Dexamethasone 4 MG TAB PO SCH ×2 (11:10→17:25)
[2020-05-23] MEDS: HYDROmorphone 10 mg/100 ml CADD IVPB PRN ×4 (02:14→21:40)
[2020-05-23 06:07] LABS: Anion Gap 14 mmol/L (10-20); BUN (Urea Nitrogen) 14 mg/dL (8.4-25.7); Calc. Creatinine Clearance 173 mL/min (70-130); Carbon Dioxide 19 mmol/L (23-31); Chloride 102 mmol/L (98-107); Glucose 76 mg/dL (80-115); Sodium 131 mmol/L (136-145)
[2020-05-23 06:31] LABS: Band 15 % (5-11); Lymphocytes 9 % (21-51); MDiff Complete? YES; Mean Corpuscular HGB CONC 35.2 g/dL (32.0-36.0); Mean Corpuscular Volume 85.3 fL (78.0-98.0); Mean Platelet Volume 13.2 fL (7.4-10.4); Monocytes 2 % (0-10); Myelocyte 1 % (0-0); Neutrophil 73 % (42-75); Nucleated RBC 4 % (0); Platelet Count 7 thou/uL (130-400); Platelet Morphology Comment Appears Decreased; RBC Distribution Width 13.9 % (11.5-14.5); Red Blood Cell (RBC) Count 2.34 mill/uL (4.70-6.10); White Blood Cell (WBC) Count 2.4 thou/uL (4.8-10.8)
[2020-05-23] MEDS: Simethicone Chewable 80 MG TAB PO SCH ×4 (08:45→21:40)
[2020-05-23] MEDS: Dexamethasone 4 MG TAB PO SCH ×3 (08:45→16:20)
[2020-05-23] MEDS: Senokot S 8.6-50 MG TAB PO SCH ×2 (08:45→20:17)
[2020-05-23] MEDS: Folic Acid 1 MG TAB PO SCH (08:45)
[2020-05-23] MEDS ORDERED: Lidocaine 2% Viscous Solution 10 ML, Aluminum & Magnesium Hydroxide 30 ML SSW SCH (20:00)
[2020-05-23] MEDS: Pregabalin 75 MG CAP PO SCH (20:15)
[2020-05-24] MEDS: HYDROmorphone 10 mg/100 ml CADD IVPB PRN ×3 (05:07→21:46)
[2020-05-24] MEDS: Dexamethasone 4 MG TAB PO SCH ×3 (08:35→16:23)
[2020-05-24] MEDS: Folic Acid 1 MG TAB PO SCH (08:36)
[2020-05-24] MEDS: Citalopram 20 MG TAB PO SCH (08:36)
[2020-05-24] MEDS: Pregabalin 75 MG CAP PO SCH ×2 (08:37→21:48)
[2020-05-24] MEDS: Senokot S 8.6-50 MG TAB PO SCH ×2 (08:37→20:12)
[2020-05-24] MEDS: Simethicone Chewable 80 MG TAB PO SCH ×4 (08:38→21:48)
[2020-05-24 08:42] LABS: Band 13 % (5-11); Hemoglobin 7.6 g/dL (14.0-18.0); Lymphocytes 27 % (21-51); MDiff Complete? YES; Mean Corpuscular HGB CONC 34.8 g/dL (32.0-36.0); Mean Corpuscular Hemoglobin 30.6 pg (27.0-31.0); Mean Corpuscular Volume 87.9 fL (78.0-98.0); Mean Platelet Volume 8.5 fL (7.4-10.4); Metamyelocyte 9 % (0-0); Monocytes 2 % (0-10); Myelocyte 2 % (0-0); Neutrophil 47 % (42-75); Nucleated RBC 3 % (0); Platelet Count 30 thou/uL (130-400); Platelet Morphology Comment Appears Decreased; RBC Distribution Width 13.9 % (11.5-14.5); Red Blood Cell (RBC) Count 2.49 mill/uL (4.70-6.10); White Blood Cell (WBC) Count 2.3 thou/uL (4.8-10.8)
[2020-05-24] MEDS: Aluminum & Magnesium Hydroxide 60 ML, Lidocaine 2% Viscous Solution 30 ML, diphenhydrAM... SSW PRN ×2 (10:04→20:12)
[2020-05-25] MEDS: Levothyroxine Sodium 75 MCG TAB PO SCH (06:04)
[2020-05-25] MEDS: HYDROmorphone 10 mg/100 ml CADD IVPB PRN ×2 (08:12→16:57)
[2020-05-25] MEDS: Dexamethasone 4 MG TAB PO SCH ×3 (08:18→16:47)
[2020-05-25] MEDS: Pregabalin 75 MG CAP PO SCH ×2 (08:18→21:33)
[2020-05-25] MEDS: Folic Acid 1 MG TAB PO SCH (08:18)
[2020-05-25] MEDS: Citalopram 20 MG TAB PO SCH (08:18)
[2020-05-25] MEDS: Simethicone Chewable 80 MG TAB PO SCH ×4 (08:20→21:33)
[2020-05-25] MEDS: Senokot S 8.6-50 MG TAB PO SCH ×2 (08:20→21:33)
[2020-05-25 08:35] LABS: Anion Gap 15 mmol/L (10-20); BUN (Urea Nitrogen) 15 mg/dL (8.4-25.7); Calc. Creatinine Clearance 166 mL/min (70-130); Calcium 8.4 mg/dL (7.8-10.44); Carbon Dioxide 21 mmol/L (23-31); Chloride 100 mmol/L (98-107); Glucose 91 mg/dL (80-115); Magnesium 1.5 mg/dL (1.6-2.6); Phosphorus 4.5 mg/dL (2.3-4.7); Potassium 4.1 mmol/L (3.5-5.1); Sodium 132 mmol/L (136-145)
[2020-05-25] MEDS ORDERED: Magnesium Sulfate 4 GM in Sodium Chloride 0.9% 250 ML 250 ML IVPB SCH (08:45)
[2020-05-25 09:20] LABS: Band 18 % (5-11); Hemoglobin 6.7 g/dL (14.0-18.0); Lymphocytes 13 % (21-51); MDiff Complete? YES; Mean Corpuscular HGB CONC 35.8 g/dL (32.0-36.0); Mean Corpuscular Hemoglobin 30.8 pg (27.0-31.0); Mean Corpuscular Volume 86.1 fL (78.0-98.0); Mean Platelet Volume 8.6 fL (7.4-10.4); Metamyelocyte 1 % (0-0); Monocytes 7 % (0-10); Neutrophil 61 % (42-75); Platelet Count 42 thou/uL (130-400); Platelet Morphology Comment Appears Decreased; RBC Distribution Width 13.9 % (11.5-14.5); Red Blood Cell (RBC) Count 2.17 mill/uL (4.70-6.10); Toxic Granulation SLIGHT; White Blood Cell (WBC) Count 2.8 thou/uL (4.8-10.8)
[2020-05-25] MEDS: Aluminum & Magnesium Hydroxide 60 ML, Lidocaine 2% Viscous Solution 30 ML, diphenhydrAM... SSW PRN ×2 (09:50→21:32)
[2020-05-26] MEDS: HYDROmorphone 10 mg/100 ml CADD IVPB PRN ×2 (02:56→15:18)
[2020-05-26 05:34] LABS: Hemoglobin 7.6 g/dL (14.0-18.0); Mean Corpuscular HGB CONC 34.4 g/dL (32.0-36.0); Mean Corpuscular Hemoglobin 29.8 pg (27.0-31.0); Mean Corpuscular Volume 86.8 fL (78.0-98.0); Mean Platelet Volume 8.2 fL (7.4-10.4); Platelet Count 25 thou/uL (130-400); RBC Distribution Width 13.7 % (11.5-14.5); Red Blood Cell (RBC) Count 2.56 mill/uL (4.70-6.10); White Blood Cell (WBC) Count 2.9 thou/uL (4.8-10.8)
[2020-05-26 05:35] LABS: Anion Gap 16 mmol/L (10-20); BUN (Urea Nitrogen) 12 mg/dL (8.4-25.7); Calc. Creatinine Clearance 151 mL/min (70-130); Calcium 8.4 mg/dL (7.8-10.44); Carbon Dioxide 21 mmol/L (23-31); Chloride 100 mmol/L (98-107); Glucose 114 mg/dL (80-115); Magnesium 1.7 mg/dL (1.6-2.6); Potassium 4.2 mmol/L (3.5-5.1); Sodium 133 mmol/L (136-145)
[2020-05-26 05:38] LABS: Band 12 % (5-11); Lymphocytes 6 % (21-51); MDiff Complete? YES; Metamyelocyte 1 % (0-0); Monocytes 2 % (0-10); Myelocyte 3 % (0-0); Neutrophil 76 % (42-75); Nucleated RBC 1 % (0); Platelet Morphology Comment Appears Decreased
[2020-05-26] MEDS: Levothyroxine Sodium 75 MCG TAB PO SCH (06:15)
[2020-05-26] MEDS ORDERED: Loperamide HCl 2 MG CAP PO PRN (07:31)
[2020-05-26] MEDS ORDERED: Sodium Chloride 0.65% Nasal 44 ML BOT EA NARE PRN (07:31)
[2020-05-26] MEDS ORDERED: hydrALAZINE 20 MG/ML VIAL SLOW IVP PRN (07:31)
[2020-05-26] MEDS ORDERED: GUAIFENESIN SF SOLN 200 MG/10 ML UDCUP PO PRN (07:31)
[2020-05-26] MEDS ORDERED: Calcium Carbonate 500 MG ChewTAB PO PRN (07:31)
[2020-05-26] MEDS ORDERED: Cepastat Lozenges 1 LOZ PO PRN (07:31)
[2020-05-26] MEDS ORDERED: Acetaminophen 325 MG TAB PO PRN (07:36)
[2020-05-26] MEDS: Dexamethasone 4 MG TAB PO SCH ×3 (08:50→18:00)
[2020-05-26] MEDS: Pregabalin 75 MG CAP PO SCH ×2 (08:50→20:14)
[2020-05-26] MEDS: Senokot S 8.6-50 MG TAB PO SCH ×2 (08:51→20:13)
[2020-05-26] MEDS: Montelukast Sodium 10 mg Tablet PO SCH (08:51)
[2020-05-26] MEDS: Folic Acid 1 MG TAB PO SCH (08:51)
[2020-05-26] MEDS: Citalopram 20 MG TAB PO SCH (08:51)
[2020-05-26] MEDS: Simethicone Chewable 80 MG TAB PO SCH ×4 (08:51→22:35)
[2020-05-26] MEDS: Aluminum & Magnesium Hydroxide 60 ML, Lidocaine 2% Viscous Solution 30 ML, diphenhydrAM... SSW PRN (09:49)
[2020-05-26] MEDS: Morphine 2 MG/ML VIAL SLOW IVP PRN (11:31)
[2020-05-26] MEDS: Morphine ER 30 MG TAB PO SCH (20:15)
[2020-05-27] MEDS: Levothyroxine Sodium 75 MCG TAB PO SCH (06:22)
[2020-05-27] MEDS: HYDROmorphone 10 mg/100 ml CADD IVPB PRN (06:23)
[2020-05-27 06:41] LABS: Hemoglobin 7.5 g/dL (14.0-18.0); Mean Corpuscular HGB CONC 36.3 g/dL (32.0-36.0); Mean Corpuscular Hemoglobin 31.6 pg (27.0-31.0); Platelet Count 14 thou/uL (130-400); RBC Distribution Width 13.7 % (11.5-14.5); Red Blood Cell (RBC) Count 2.36 mill/uL (4.70-6.10); White Blood Cell (WBC) Count 2.6 thou/uL (4.8-10.8)
[2020-05-27 07:00] LABS: Phosphorus 5.4 mg/dL (2.3-4.7)
[2020-05-27 07:03] LABS: ALT (SGPT) 9 U/L (8-55); AST (SGOT) 16 U/L (5-34); Albumin 2.9 g/dL (3.4-4.8); Alkaline Phosphatase 83 U/L (40-110); Anion Gap 15 mmol/L (10-20); BUN (Urea Nitrogen) 12 mg/dL (8.4-25.7); Bilirubin, Total 0.5 mg/dL (0.2-1.2); Calc. Creatinine Clearance 160 mL/min (70-130); Calcium 8.7 mg/dL (7.8-10.44); Carbon Dioxide 23 mmol/L (23-31); Chloride 100 mmol/L (98-107); Globulin 5.1 g/dL (2.4-3.5); Glucose 115 mg/dL (80-115); Magnesium 1.5 mg/dL (1.6-2.6); Potassium 4.1 mmol/L (3.5-5.1); Sodium 134 mmol/L (136-145)
[2020-05-27] MEDS ORDERED: Magnesium Sulfate 3 GM in Sodium Chloride 0.9% 100 ML IVPB SCH (08:15)
[2020-05-27 08:20] LABS: Band 20 % (5-11); Lymphocytes 10 % (21-51); MDiff Complete? YES; Metamyelocyte 2 % (0-0); Monocytes 8 % (0-10); Myelocyte 2 % (0-0); Neutrophil 54 % (42-75); Platelet Morphology Comment Appears Decreased; Polychromasia SLIGHT = 2-3 cells (100X) (0-2/hpf); Reactive Lymphocytes 4 % (0-10)
[2020-05-27] MEDS: Simethicone Chewable 80 MG TAB PO SCH ×4 (10:00→22:34)
[2020-05-27] MEDS: Pregabalin 75 MG CAP PO SCH ×2 (10:00→20:28)
[2020-05-27] MEDS: Cyanocobalamin (Vitamin B-12) 1,000 MCG TAB PO SCH (10:00)
[2020-05-27] MEDS: Morphine ER 30 MG TAB PO SCH ×2 (10:02→20:29)
[2020-05-27] MEDS: Folic Acid 1 MG TAB PO SCH (10:02)
[2020-05-27] MEDS: Montelukast Sodium 10 mg Tablet PO SCH (10:02)
[2020-05-27] MEDS: Citalopram 20 MG TAB PO SCH (10:03)
[2020-05-27] MEDS: Senokot S 8.6-50 MG TAB PO SCH ×2 (10:03→20:28)
[2020-05-27] MEDS: Multivitamin W/ Minerals 1 TAB PO SCH (10:03)
[2020-05-27] MEDS: Dexamethasone 4 MG TAB PO SCH ×3 (10:03→18:01)
[2020-05-27] MEDS ORDERED: SODIUM CHLORIDE 0.9% IVPB SCH (11:00)
[2020-05-27] MEDS ORDERED: SODIUM CHLORIDE 0.9% FS SCH (11:00)
[2020-05-27] MEDS ORDERED: Palonosetron HCl 0.25 MG in Sodium Chloride 0.9% 50 ML IVPB SCH (11:00)
[2020-05-27] MEDS ORDERED: FOSAPREPITANT DIMEGLUMINE IVPB SCH (11:00)
[2020-05-27] MEDS ORDERED: Dexamethasone 40 MG in Sodium Chloride 0.9% 50 ML IVPB SCH (11:00)
[2020-05-27] MEDS ORDERED: CYCLOPHOSPHAMIDE FS SCH (11:00)
[2020-05-27] MEDS: Morphine 2 MG/ML VIAL SLOW IVP PRN (11:07)
[2020-05-27] MEDS ORDERED: Cyclophosphamide 0.6 GM in Sodium Chloride 0.9% 250 ML 250 ML IVPB SCH (11:45)
[2020-05-27] MEDS ORDERED: Dexamethasone Sod Phosphate 40 MG in Sodium Chloride 0.9% 50 ML IVPB SCH (12:00)
[2020-05-27] MEDS ORDERED: PALONOSETRON HCL 0.05 MG/ML 5 ML VIAL IVP SCH (12:00)
[2020-05-28 01:52] LABS: #Lymphocytes 0.2 thou/uL (1.20-3.40); #Monocytes 0.2 thou/uL (0.11-0.59); %Eosinophils 0.2 % (0.0-10.0); %Lymphocytes 8.4 % (21.0-51.0); %Monocytes 8.4 % (0.0-10.0); Mean Corpuscular Hemoglobin 31.3 pg (27.0-31.0); Mean Corpuscular Volume 86.9 fL (78.0-98.0); Mean Platelet Volume 8.9 fL (7.4-10.4); Platelet Count 37 thou/uL (130-400); RBC Distribution Width 13.9 % (11.5-14.5); Red Blood Cell (RBC) Count 2.24 mill/uL (4.70-6.10); White Blood Cell (WBC) Count 2.4 thou/uL (4.8-10.8)
[2020-05-28 02:13] LABS: ALT (SGPT) 9 U/L (8-55); AST (SGOT) 18 U/L (5-34); Albumin 2.8 g/dL (3.4-4.8); Alkaline Phosphatase 92 U/L (40-110); Anion Gap 20 mmol/L (10-20); BUN (Urea Nitrogen) 12 mg/dL (8.4-25.7); Bilirubin, Total 0.4 mg/dL (0.2-1.2); Calc. Creatinine Clearance 151 mL/min (70-130); Calcium 8.6 mg/dL (7.8-10.44); Carbon Dioxide 20 mmol/L (23-31); Chloride 98 mmol/L (98-107); Globulin 5.1 g/dL (2.4-3.5); Glucose 133 mg/dL (80-115); Potassium 3.9 mmol/L (3.5-5.1); Protein, Total 7.9 g/dL (5.8-8.1); Sodium 134 mmol/L (136-145); Uric Acid 4.3 mg/dL (3.5-7.2)
[2020-05-28 02:31] LABS: Anion Gap 20 mmol/L (10-20); BUN (Urea Nitrogen) 11 mg/dL (8.4-25.7); Calc. Creatinine Clearance 154 mL/min (70-130); Calcium 8.6 mg/dL (7.8-10.44); Carbon Dioxide 19 mmol/L (23-31); Chloride 99 mmol/L (98-107); Glucose 133 mg/dL (80-115); Magnesium 1.7 mg/dL (1.6-2.6); Sodium 134 mmol/L (136-145)
[2020-05-28] MEDS: Levothyroxine Sodium 75 MCG TAB PO SCH (05:41)
[2020-05-28] MEDS ORDERED: PALONOSETRON HCL 0.05 MG/ML 5 ML VIAL IVP SCH (07:00)
[2020-05-28] MEDS ORDERED: FOSAPREPITANT DIMEGLUMINE IVPB SCH (07:00)
[2020-05-28] MEDS ORDERED: SODIUM CHLORIDE 0.9% IVPB SCH (07:00)
[2020-05-28] MEDS: Dexamethasone 4 MG TAB PO SCH ×2 (08:12→12:07)
[2020-05-28] MEDS: Ferrous Sulfate 325 MG TAB PO SCH (08:13)
[2020-05-28] MEDS: Citalopram 20 MG TAB PO SCH (08:14)
[2020-05-28] MEDS: Folic Acid 1 MG TAB PO SCH (08:15)
[2020-05-28] MEDS: Morphine ER 30 MG TAB PO SCH ×2 (08:15→20:49)
[2020-05-28] MEDS: Magnesium Oxide 400 MG TAB PO SCH ×2 (08:15→20:49)
[2020-05-28] MEDS: Montelukast Sodium 10 mg Tablet PO SCH (08:15)
[2020-05-28] MEDS: Cyanocobalamin (Vitamin B-12) 1,000 MCG TAB PO SCH (08:15)
[2020-05-28] MEDS: Senokot S 8.6-50 MG TAB PO SCH ×2 (08:16→20:49)
[2020-05-28] MEDS: Multivitamin W/ Minerals 1 TAB PO SCH (08:16)
[2020-05-28] MEDS: Simethicone Chewable 80 MG TAB PO SCH ×4 (08:17→20:48)
[2020-05-28] MEDS: Pregabalin 75 MG CAP PO SCH ×2 (10:14→20:51)
[2020-05-28] MEDS: Allopurinol 300 MG TAB PO SCH ×2 (10:15→20:49)
[2020-05-28] MEDS: HYDROmorphone 10 mg/100 ml CADD IVPB PRN (10:29)
[2020-05-28] MEDS: Sodium Chloride 0.9% 1,000 ML IV SCH ×2 (11:35→23:52)
[2020-05-28] MEDS: Aluminum & Magnesium Hydroxide 60 ML, Lidocaine 2% Viscous Solution 30 ML, diphenhydrAM... SSW PRN ×2 (12:12→21:04)
[2020-05-28] MEDS: Dexamethasone Sod Phosphate 40 MG in Sodium Chloride 0.9% 50 ML IVPB SCH (12:13)
[2020-05-28] MEDS: Cyclophosphamide 0.6 GM in Sodium Chloride 0.9% 250 ML 250 ML IVPB SCH (12:50)
[2020-05-29] MEDS: Cyclophosphamide 0.6 GM in Sodium Chloride 0.9% 250 ML 250 ML IVPB SCH ×2 (00:57→14:33)
[2020-05-29] MEDS: Levothyroxine Sodium 75 MCG TAB PO SCH (06:09)
[2020-05-29] MEDS: HYDROmorphone 10 mg/100 ml CADD IVPB PRN (07:05)
[2020-05-29] MEDS: Ferrous Sulfate 325 MG TAB PO SCH (08:48)
[2020-05-29] MEDS: Citalopram 20 MG TAB PO SCH (08:49)
[2020-05-29] MEDS: Allopurinol 300 MG TAB PO SCH ×2 (08:49→20:29)
[2020-05-29] MEDS: Cyanocobalamin (Vitamin B-12) 1,000 MCG TAB PO SCH (08:50)
[2020-05-29] MEDS: Magnesium Oxide 400 MG TAB PO SCH ×2 (08:50→20:29)
[2020-05-29] MEDS: Folic Acid 1 MG TAB PO SCH (08:50)
[2020-05-29] MEDS: Montelukast Sodium 10 mg Tablet PO SCH (08:50)
[2020-05-29] MEDS: Morphine ER 30 MG TAB PO SCH ×2 (08:51→20:27)
[2020-05-29] MEDS: Multivitamin W/ Minerals 1 TAB PO SCH (08:52)
[2020-05-29] MEDS: Pregabalin 75 MG CAP PO SCH ×2 (08:52→20:28)
[2020-05-29] MEDS: Simethicone Chewable 80 MG TAB PO SCH ×3 (08:53→18:18)
[2020-05-29] MEDS: Senokot S 8.6-50 MG TAB PO SCH ×2 (08:53→20:29)
[2020-05-29] MEDS: Sodium Chloride 0.9% 1,000 ML IV SCH (11:57)
[2020-05-29 13:04] LABS: #Lymphocytes 0.2 thou/uL (1.20-3.40); #Monocytes 0.2 thou/uL (0.11-0.59); %Eosinophils 0.5 % (0.0-10.0); %Lymphocytes 6.3 % (21.0-51.0); %Monocytes 7.2 % (0.0-10.0); Hemoglobin 6.9 g/dL (14.0-18.0); Mean Corpuscular HGB CONC 35.2 g/dL (32.0-36.0); Mean Corpuscular Hemoglobin 30.9 pg (27.0-31.0); Mean Corpuscular Volume 87.9 fL (78.0-98.0); Mean Platelet Volume 9.9 fL (7.4-10.4); Platelet Count 22 thou/uL (130-400); Red Blood Cell (RBC) Count 2.24 mill/uL (4.70-6.10); White Blood Cell (WBC) Count 2.4 thou/uL (4.8-10.8)
[2020-05-29] MEDS: Dexamethasone Sod Phosphate 40 MG in Sodium Chloride 0.9% 50 ML IVPB SCH (13:15)
[2020-05-29 13:18] LABS: ALT (SGPT) 9 U/L (8-55); AST (SGOT) 20 U/L (5-34); Albumin 2.7 g/dL (3.4-4.8); Alkaline Phosphatase 91 U/L (40-110); Anion Gap 14 mmol/L (10-20); BUN (Urea Nitrogen) 12 mg/dL (8.4-25.7); Bilirubin, Total 0.4 mg/dL (0.2-1.2); Calc. Creatinine Clearance 144 mL/min (70-130); Calcium 8.2 mg/dL (7.8-10.44); Carbon Dioxide 23 mmol/L (23-31); Chloride 98 mmol/L (98-107); Glucose 111 mg/dL (80-115); Potassium 3.9 mmol/L (3.5-5.1); Protein, Total 7.7 g/dL (5.8-8.1); Sodium 131 mmol/L (136-145)
[2020-05-29] MEDS: Ondansetron 2MG/ML MDV 10 MG in Sodium Chloride 0.9% 50 ML IVPB SCH (14:05)
[2020-05-29] MEDS: Morphine IR Tab 15 MG TAB PO PRN (19:07)
[2020-05-30] MEDS: Simethicone Chewable 80 MG TAB PO SCH ×5 (01:08→20:50)
[2020-05-30] MEDS: Morphine IR Tab 15 MG TAB PO PRN ×4 (01:11→17:34)
[2020-05-30] MEDS: Sodium Chloride 0.9% 1,000 ML IV SCH ×2 (01:12→13:24)
[2020-05-30] MEDS: Dexamethasone Sod Phosphate 40 MG in Sodium Chloride 0.9% 50 ML IVPB SCH ×2 (02:18→13:59)
[2020-05-30] MEDS: Ondansetron 2MG/ML MDV 10 MG in Sodium Chloride 0.9% 50 ML IVPB SCH ×2 (02:41→14:28)
[2020-05-30] MEDS: Cyclophosphamide 0.6 GM in Sodium Chloride 0.9% 250 ML 250 ML IVPB SCH ×2 (03:08→14:53)
[2020-05-30] MEDS: Levothyroxine Sodium 75 MCG TAB PO SCH (05:45)
[2020-05-30 06:13] LABS: #Lymphocytes 0.1 thou/uL (1.20-3.40); #Monocytes 0.1 thou/uL (0.11-0.59); #Neutrophils 1.6 thou/uL (1.40-6.50); %Basophils 0.3 % (0.0-1.0); %Eosinophils 0.1 % (0.0-10.0); %Lymphocytes 5.2 % (21.0-51.0); %Monocytes 6.2 % (0.0-10.0); %Neutrophils 88.2 % (42.0-75.0); Hemoglobin 7.4 g/dL (14.0-18.0); Mean Corpuscular HGB CONC 35.2 g/dL (32.0-36.0); Mean Corpuscular Hemoglobin 30.3 pg (27.0-31.0); Mean Platelet Volume 9.9 fL (7.4-10.4); Platelet Count 13 thou/uL (130-400); RBC Distribution Width 13.8 % (11.5-14.5); Red Blood Cell (RBC) Count 2.44 mill/uL (4.70-6.10); White Blood Cell (WBC) Count 1.8 thou/uL (4.8-10.8)
[2020-05-30 06:25] LABS: Anion Gap 12 mmol/L (10-20); BUN (Urea Nitrogen) 13 mg/dL (8.4-25.7); Calc. Creatinine Clearance 159 mL/min (70-130); Calcium 7.7 mg/dL (7.8-10.44); Carbon Dioxide 25 mmol/L (23-31); Chloride 102 mmol/L (98-107); Glucose 113 mg/dL (80-115); Potassium 3.9 mmol/L (3.5-5.1); Sodium 135 mmol/L (136-145); Uric Acid 3.1 mg/dL (3.5-7.2)
[2020-05-30] MEDS: Ferrous Sulfate 325 MG TAB PO SCH (09:02)
[2020-05-30] MEDS: Citalopram 20 MG TAB PO SCH (09:03)
[2020-05-30] MEDS: Allopurinol 300 MG TAB PO SCH ×2 (09:03→20:48)
[2020-05-30] MEDS: Morphine ER 30 MG TAB PO SCH ×2 (09:04→20:49)
[2020-05-30] MEDS: Multivitamin W/ Minerals 1 TAB PO SCH (09:06)
[2020-05-30] MEDS: Folic Acid 1 MG TAB PO SCH (09:07)
[2020-05-30] MEDS: Cyanocobalamin (Vitamin B-12) 1,000 MCG TAB PO SCH (09:07)
[2020-05-30] MEDS: Montelukast Sodium 10 mg Tablet PO SCH (09:08)
[2020-05-30] MEDS: Magnesium Oxide 400 MG TAB PO SCH ×2 (09:08→20:48)
[2020-05-30] MEDS: Senokot S 8.6-50 MG TAB PO SCH ×2 (09:09→20:48)
[2020-05-30] MEDS ORDERED: Pregabalin 75 MG CAP PO SCH (10:15)
[2020-05-30] MEDS: Pregabalin 75 MG CAP PO SCH ×2 (10:38→20:48)
[2020-05-30] MEDS: HYDROmorphone 10 mg/100 ml CADD IVPB PRN (16:44)
[2020-05-31] MEDS: Sodium Chloride 0.9% 1,000 ML IV SCH (00:17)
[2020-05-31] MEDS: Dexamethasone Sod Phosphate 40 MG in Sodium Chloride 0.9% 50 ML IVPB SCH (00:18)
[2020-05-31] MEDS: Ondansetron 2MG/ML MDV 10 MG in Sodium Chloride 0.9% 50 ML IVPB SCH (00:19)
[2020-05-31] MEDS: Cyclophosphamide 0.6 GM in Sodium Chloride 0.9% 250 ML 250 ML IVPB SCH (01:56)
[2020-05-31 04:39] LABS: #Lymphocytes 0.1 thou/uL (1.20-3.40); #Neutrophils 1.5 thou/uL (1.40-6.50); %Basophils 1.3 % (0.0-1.0); %Monocytes 2.7 % (0.0-10.0); %Neutrophils 91.1 % (42.0-75.0); Hemoglobin 7.5 g/dL (14.0-18.0); Mean Corpuscular HGB CONC 35.1 g/dL (32.0-36.0); Mean Corpuscular Hemoglobin 30.5 pg (27.0-31.0); Mean Corpuscular Volume 87.1 fL (78.0-98.0); Mean Platelet Volume 9.3 fL (7.4-10.4); Platelet Count 25 thou/uL (130-400); RBC Distribution Width 13.8 % (11.5-14.5); Red Blood Cell (RBC) Count 2.45 mill/uL (4.70-6.10); White Blood Cell (WBC) Count 1.6 thou/uL (4.8-10.8)
[2020-05-31 05:05] LABS: ALT (SGPT) 11 U/L (8-55); AST (SGOT) 17 U/L (5-34); Albumin 2.6 g/dL (3.4-4.8); Alkaline Phosphatase 88 U/L (40-110); Anion Gap 13 mmol/L (10-20); BUN (Urea Nitrogen) 13 mg/dL (8.4-25.7); Bilirubin, Total 0.3 mg/dL (0.2-1.2); Calc. Creatinine Clearance 159 mL/min (70-130); Calcium 7.7 mg/dL (7.8-10.44); Carbon Dioxide 22 mmol/L (23-31); Chloride 104 mmol/L (98-107); Globulin 4.4 g/dL (2.4-3.5); Glucose 124 mg/dL (80-115); Potassium 3.8 mmol/L (3.5-5.1); Sodium 135 mmol/L (136-145); Uric Acid 2.8 mg/dL (3.5-7.2)
[2020-05-31] MEDS: Levothyroxine Sodium 75 MCG TAB PO SCH (05:41)
[2020-05-31] MEDS: Magnesium Oxide 400 MG TAB PO SCH ×2 (08:52→20:45)
[2020-05-31] MEDS: Multivitamin W/ Minerals 1 TAB PO SCH (08:52)
[2020-05-31] MEDS: Senokot S 8.6-50 MG TAB PO SCH ×2 (08:52→20:45)
[2020-05-31] MEDS: Montelukast Sodium 10 mg Tablet PO SCH (08:53)
[2020-05-31] MEDS: Simethicone Chewable 80 MG TAB PO SCH ×4 (08:53→21:40)
[2020-05-31] MEDS: Allopurinol 300 MG TAB PO SCH ×2 (08:53→20:45)
[2020-05-31] MEDS: Folic Acid 1 MG TAB PO SCH (08:53)
[2020-05-31] MEDS: Dexamethasone 4 MG TAB PO SCH ×2 (08:53→20:45)
[2020-05-31] MEDS: Cyanocobalamin (Vitamin B-12) 1,000 MCG TAB PO SCH (08:53)
[2020-05-31] MEDS: Morphine ER 30 MG TAB PO SCH ×2 (08:53→20:43)
[2020-05-31] MEDS: Citalopram 20 MG TAB PO SCH (08:53)
[2020-05-31] MEDS: Ferrous Sulfate 325 MG TAB PO SCH (08:54)
[2020-05-31] MEDS: Morphine IR Tab 15 MG TAB PO PRN ×4 (09:06→21:12)
[2020-05-31] MEDS: Pregabalin 75 MG CAP PO SCH ×3 (09:47→20:46)
[2020-05-31] MEDS: HYDROmorphone 10 mg/100 ml CADD IVPB PRN (13:03)
[2020-05-31 17:13] LABS: Kappa Lambda Light Chain Ratio Note: (0.26-1.65); Kappa Light Chains 844.9 mg/L (3.3-19.4); Lambda Light Chain <1.5 mg/L (5.7-26.3)
[2020-06-01] MEDS: Morphine IR Tab 15 MG TAB PO PRN ×4 (01:05→23:14)
[2020-06-01] MEDS: Levothyroxine Sodium 75 MCG TAB PO SCH (04:59)
[2020-06-01 05:32] LABS: ALT (SGPT) 11 U/L (8-55); AST (SGOT) 16 U/L (5-34); Albumin 2.4 g/dL (3.4-4.8); Alkaline Phosphatase 83 U/L (40-110); Anion Gap 11 mmol/L (10-20); BUN (Urea Nitrogen) 14 mg/dL (8.4-25.7); Bilirubin, Total 0.4 mg/dL (0.2-1.2); Calc. Creatinine Clearance 170 mL/min (70-130); Calcium 7.5 mg/dL (7.8-10.44); Carbon Dioxide 26 mmol/L (23-31); Chloride 101 mmol/L (98-107); Globulin 4.1 g/dL (2.4-3.5); Glucose 119 mg/dL (80-115); Potassium 3.9 mmol/L (3.5-5.1); Protein, Total 6.5 g/dL (5.8-8.1); Sodium 134 mmol/L (136-145); Uric Acid 2.6 mg/dL (3.5-7.2)
[2020-06-01 05:36] LABS: Hemoglobin 6.7 g/dL (14.0-18.0); Lymphocytes 2 % (21-51); MDiff Complete? YES; Mean Corpuscular HGB CONC 34.1 g/dL (32.0-36.0); Mean Corpuscular Hemoglobin 29.7 pg (27.0-31.0); Mean Platelet Volume 9.1 fL (7.4-10.4); Neutrophil 98 % (42-75); Platelet Count 15 thou/uL (130-400); Platelet Morphology Comment Appears Decreased; RBC Distribution Width 13.9 % (11.5-14.5); Red Blood Cell (RBC) Count 2.26 mill/uL (4.70-6.10)
[2020-06-01] MEDS: Senokot S 8.6-50 MG TAB PO SCH ×2 (08:44→20:22)
[2020-06-01] MEDS: Magnesium Oxide 400 MG TAB PO SCH ×2 (08:44→20:22)
[2020-06-01] MEDS: Montelukast Sodium 10 mg Tablet PO SCH (08:44)
[2020-06-01] MEDS: Dexamethasone 4 MG TAB PO SCH ×2 (08:44→20:22)
[2020-06-01] MEDS: Cyanocobalamin (Vitamin B-12) 1,000 MCG TAB PO SCH (08:44)
[2020-06-01] MEDS: Multivitamin W/ Minerals 1 TAB PO SCH (08:44)
[2020-06-01] MEDS: Pregabalin 75 MG CAP PO SCH ×2 (08:45→20:20)
[2020-06-01] MEDS: Ferrous Sulfate 325 MG TAB PO SCH (08:46)
[2020-06-01] MEDS: Folic Acid 1 MG TAB PO SCH (08:46)
[2020-06-01] MEDS: Allopurinol 300 MG TAB PO SCH ×2 (08:46→20:22)
[2020-06-01] MEDS: Citalopram 20 MG TAB PO SCH (08:46)
[2020-06-01] MEDS: Simethicone Chewable 80 MG TAB PO SCH ×4 (08:47→21:51)
[2020-06-01] MEDS: Morphine ER 30 MG TAB PO SCH ×2 (08:47→20:21)
[2020-06-02] MEDS: Morphine IR Tab 15 MG TAB PO PRN ×3 (03:08→13:38)
[2020-06-02] MEDS: Levothyroxine Sodium 75 MCG TAB PO SCH (06:09)
[2020-06-02 06:31] LABS: Hemoglobin 7.8 g/dL (14.0-18.0); Mean Corpuscular HGB CONC 35.8 g/dL (32.0-36.0); Mean Corpuscular Hemoglobin 30.6 pg (27.0-31.0); Mean Corpuscular Volume 85.4 fL (78.0-98.0); Mean Platelet Volume 9.1 fL (7.4-10.4); Platelet Count 21 thou/uL (130-400); RBC Distribution Width 14.5 % (11.5-14.5); Red Blood Cell (RBC) Count 2.55 mill/uL (4.70-6.10); White Blood Cell (WBC) Count 0.8 thou/uL (4.8-10.8)
[2020-06-02 06:56] LABS: Lymphocytes 4 % (21-51); MDiff Complete? YES; Neutrophil 96 % (42-75); Platelet Morphology Comment Appears Decreased
[2020-06-02] MEDS ORDERED: PEGFILGRASTIM-JMDB 6 MG/0.6 ML SYRINGE SQ SCH (08:45)
[2020-06-02] MEDS: Pregabalin 75 MG CAP PO SCH (09:17)
[2020-06-02] MEDS: Magnesium Oxide 400 MG TAB PO SCH (09:18)
[2020-06-02] MEDS: Montelukast Sodium 10 mg Tablet PO SCH (09:18)
[2020-06-02] MEDS: Simethicone Chewable 80 MG TAB PO SCH (09:18)
[2020-06-02] MEDS: Ferrous Sulfate 325 MG TAB PO SCH (09:18)
[2020-06-02] MEDS: Senokot S 8.6-50 MG TAB PO SCH (09:18)
[2020-06-02] MEDS: Allopurinol 300 MG TAB PO SCH (09:18)
[2020-06-02] MEDS: Multivitamin W/ Minerals 1 TAB PO SCH (09:18)
[2020-06-02] MEDS: Citalopram 20 MG TAB PO SCH (09:19)
[2020-06-02] MEDS: Morphine ER 30 MG TAB PO SCH (09:19)
[2020-06-02] MEDS: Dexamethasone 4 MG TAB PO SCH (09:19)
[2020-06-02] MEDS: Cyanocobalamin (Vitamin B-12) 1,000 MCG TAB PO SCH (09:19)
[2020-06-02] MEDS: Folic Acid 1 MG TAB PO SCH (09:19)
[2020-06-02 13:29] VITALS: BP 121/64; TEMP 98.7
== END 2020-06-02 14:00 | disposition home or self-care (01) | DRG 542 ==
LOC: ERS 20:08 → ERHOLD 05-14 01:54 → ONC 05-14 15:07
PROVIDERS: ADMIT Student in an Organized Health Care Education/Training Program; ATTEND Internal Medicine
PROC: 30233R1 Transfusion of Nonautologous Platelets into Peripheral Vein, Percutaneous Approach (ICD-10-PCS; 2020-05-13)
PROC: DPY Radiation Therapy, Musculoskeletal System, Other Radiation (ICD-10-PCS; 2020-05-14)
PROC: 30233N1 Transfusion of Nonautologous Red Blood Cells into Peripheral Vein, Percutaneous Approach (ICD-10-PCS; 2020-05-14)
PROC: 8E0ZXY6 Isolation (ICD-10-PCS; 2020-05-15)
PROC: 0T9B70Z Drainage of Bladder with Drainage Device, Via Natural or Artificial Opening (ICD-10-PCS; 2020-05-25)
PROC: 3E03305 Introduction of Other Antineoplastic into Peripheral Vein, Percutaneous Approach (ICD-10-PCS; principal; 2020-05-28)
DX: C79.51 Secondary malignant neoplasm of bone (principal); D61.810 Antineoplastic chemotherapy induced pancytopenia; C90.00 Multiple myeloma not having achieved remission; G95.29 Other cord compression; Z94.84 Stem cells transplant status; I10 Essential (primary) hypertension; Z20.822 Contact with and (suspected) exposure to COVID-19; T45.1X5A Adverse effect of antineoplastic and immunosuppressive drugs, initial encounter; F17.210 Nicotine dependence, cigarettes, uncomplicated; E03.9 Hypothyroidism, unspecified; E78.00 Pure hypercholesterolemia, unspecified; E53.8 Deficiency of other specified B group vitamins; F32.9 Major depressive disorder, single episode, unspecified; K59.00 Constipation, unspecified; D70.9 Neutropenia, unspecified; R50.81 Fever presenting with conditions classified elsewhere; R33.9 Retention of urine, unspecified; E83.42 Hypomagnesemia; K13.4 Granuloma and granuloma-like lesions of oral mucosa; Z90.79 Acquired absence of other genital organ(s); Z79.899 Other long term (current) drug therapy; Z79.890 Hormone replacement therapy; Z79.82 Long term (current) use of aspirin; Z85.46 Personal history of malignant neoplasm of prostate; Z80.8 Family history of malignant neoplasm of other organs or systems
CPT/HCPCS: 36415; 36430; 51702; 70486; 72157; 72158; 74018; 77014; 77290; 77307; 77334; 77336; 77412; 77417; 80048; 80053; 81003; 81015; 82248; 82550; 82607; 82746; 83605; 83615; 83690; 83735; 83883; 84100; 84165; 84443; 84550; 85007; 85025; 85027; 85652; 86140; 86618; 86850; 86900; 86901; 86922; 87635; 96374; 96375; 96376; A9579; C9113; J1100; J1170; J1453; J2270; J2405; J2469; J3010; J3475; J3490; J7050; J8540; J9070; P9036; P9040; Q0163; Q5108; U0003; U0005

== ENCOUNTER 2020-06-06 17:25 | Day surgery (SDC) | payer BC ==
[2020-06-06] MEDS ORDERED: diphenhydrAMINE 25 MG CAP PO SCH (17:45)
[2020-06-06] MEDS ORDERED: Acetaminophen 500 MG TAB PO SCH (17:45)
[2020-06-07 05:38] VITALS: TEMP 97.4
[2020-06-07 06:21] VITALS: BP 111/64
[2020-06-07 07:35] LABS: Hemoglobin 6.1 g/dL (14.0-18.0); Mean Corpuscular Hemoglobin 30.6 pg (27.0-31.0); Mean Corpuscular Volume 87.4 fL (78.0-98.0); Mean Platelet Volume 8.6 fL (7.4-10.4); Platelet Count 49 thou/uL (130-400); RBC Distribution Width 13.5 % (11.5-14.5); Red Blood Cell (RBC) Count 1.99 mill/uL (4.70-6.10); White Blood Cell (WBC) Count 0.1 thou/uL (4.8-10.8)
== END 2020-06-07 06:53 | disposition home or self-care (01) ==
LOC: ONC/OP 17:25 → ONC 17:44 → ONC/OP 06-07 06:53
PROVIDERS: ATTEND Internal Medicine Hematology & Oncology
PROC: 30233R1 Transfusion of Nonautologous Platelets into Peripheral Vein, Percutaneous Approach (ICD-10-PCS; principal; 2020-06-07)
PROC: 30233N1 Transfusion of Nonautologous Red Blood Cells into Peripheral Vein, Percutaneous Approach (ICD-10-PCS; principal; 2020-06-07)
DX: D69.6 Thrombocytopenia, unspecified (principal); D64.9 Anemia, unspecified
CPT/HCPCS: 36430; 85007; 85027; 86850; 86900; 86901; 86922; P9036; P9040; Q0163

== ENCOUNTER 2020-06-11 08:40 | Day surgery (SDC) | payer BC ==
[2020-06-11] MEDS ORDERED: Acetaminophen 500 MG TAB PO PRN (08:53)
[2020-06-11] MEDS ORDERED: diphenhydrAMINE 25 MG CAP PO PRN (08:54)
[2020-06-11] MEDS ORDERED: Sodium Chloride 0.9% 20 ML ONE (09:26)
[2020-06-11 15:31] VITALS: BP 112/57; TEMP 97.8
== END 2020-06-11 15:31 | disposition home or self-care (01) ==
LOC: ONC/OP 08:40
PROVIDERS: ATTEND Internal Medicine Hematology & Oncology
PROC: 30233N1 Transfusion of Nonautologous Red Blood Cells into Peripheral Vein, Percutaneous Approach (ICD-10-PCS; principal; 2020-06-11)
PROC: 30233R1 Transfusion of Nonautologous Platelets into Peripheral Vein, Percutaneous Approach (ICD-10-PCS; principal; 2020-06-11)
DX: D64.9 Anemia, unspecified (principal); D69.6 Thrombocytopenia, unspecified; Z88.1 Allergy status to other antibiotic agents
CPT/HCPCS: 36430; 86850; 86900; 86901; 86922; P9036; P9040; Q0163

== ENCOUNTER 2020-06-17 08:34 | Day surgery (SDC) | payer BC ==
[2020-06-17] MEDS ORDERED: diphenhydrAMINE 25 MG CAP PO SCH (09:00)
[2020-06-17] MEDS ORDERED: Acetaminophen 500 MG TAB PO SCH (09:00)
[2020-06-17 13:22] VITALS: BP 96/53; TEMP 97.7
== END 2020-06-17 13:23 | disposition home or self-care (01) ==
LOC: ONC/OP 08:34
PROVIDERS: ATTEND Internal Medicine Hematology & Oncology
PROC: 30233R1 Transfusion of Nonautologous Platelets into Peripheral Vein, Percutaneous Approach (ICD-10-PCS; principal; 2020-06-17)
PROC: 30233N1 Transfusion of Nonautologous Red Blood Cells into Peripheral Vein, Percutaneous Approach (ICD-10-PCS; principal; 2020-06-17)
DX: D69.6 Thrombocytopenia, unspecified (principal); D64.9 Anemia, unspecified; Z88.1 Allergy status to other antibiotic agents
CPT/HCPCS: 36430; 86850; 86900; 86901; 86922; P9036; P9040; Q0163

== ENCOUNTER 2020-06-22 13:39 | Day surgery (SDC) | payer BC ==
[2020-06-22] MEDS ORDERED: Acetaminophen 500 MG TAB PO SCH (14:30)
[2020-06-22] MEDS ORDERED: diphenhydrAMINE 25 MG CAP PO SCH (14:30)
[2020-06-22 15:00] VITALS: BMI 20.5
[2020-06-22 20:04] VITALS: BP 97/58; TEMP 97.6
[2020-06-23 05:53] LABS: #Lymphocytes 0.2 thou/uL (1.20-3.40); #Monocytes 0.1 thou/uL (0.11-0.59); #Neutrophils 1.6 thou/uL (1.40-6.50); %Basophils 0.8 % (0.0-1.0); %Eosinophils 0.1 % (0.0-10.0); %Lymphocytes 12.1 % (21.0-51.0); %Monocytes 2.7 % (0.0-10.0); %Neutrophils 84.3 % (42.0-75.0); Mean Corpuscular HGB CONC 34.3 g/dL (32.0-36.0); Mean Corpuscular Hemoglobin 30.2 pg (27.0-31.0); Mean Corpuscular Volume 88.1 fL (78.0-98.0); Mean Platelet Volume 8.4 fL (7.4-10.4); Platelet Count 30 thou/uL (130-400); RBC Distribution Width 12.9 % (11.5-14.5); Red Blood Cell (RBC) Count 2.64 mill/uL (4.70-6.10); White Blood Cell (WBC) Count 1.8 thou/uL (4.8-10.8)
== END 2020-06-22 21:39 | disposition home or self-care (01) ==
LOC: ONC/OP 13:39 → ONC 13:41 → ONC/OP 21:39
PROVIDERS: ATTEND Internal Medicine
PROC: 30233R1 Transfusion of Nonautologous Platelets into Peripheral Vein, Percutaneous Approach (ICD-10-PCS; principal; 2020-06-22)
PROC: 30233N1 Transfusion of Nonautologous Red Blood Cells into Peripheral Vein, Percutaneous Approach (ICD-10-PCS; principal; 2020-06-22)
DX: D69.6 Thrombocytopenia, unspecified (principal); D64.9 Anemia, unspecified; Z88.1 Allergy status to other antibiotic agents
CPT/HCPCS: 36430; 85025; 86850; 86900; 86901; 86922; P9036; P9040; Q0163

== ENCOUNTER 2020-06-24 08:41 | Day surgery (SDC) | payer BC ==
[2020-06-24] MEDS ORDERED: Sodium Chloride 0.9% 20 ML ONE (09:13)
[2020-06-24] MEDS ORDERED: diphenhydrAMINE 25 MG CAP PO SCH (09:15)
[2020-06-24] MEDS ORDERED: Acetaminophen 500 MG TAB PO SCH (09:15)
[2020-06-24 15:08] VITALS: BP 109/62; TEMP 98.1
== END 2020-06-24 15:08 | disposition home or self-care (01) ==
LOC: ONC/OP 08:41
PROVIDERS: ATTEND Internal Medicine Hematology & Oncology
PROC: 30233N1 Transfusion of Nonautologous Red Blood Cells into Peripheral Vein, Percutaneous Approach (ICD-10-PCS; principal; 2020-06-24)
PROC: 30233R1 Transfusion of Nonautologous Platelets into Peripheral Vein, Percutaneous Approach (ICD-10-PCS; principal; 2020-06-24)
DX: D69.6 Thrombocytopenia, unspecified (principal); D64.9 Anemia, unspecified; Z88.1 Allergy status to other antibiotic agents
CPT/HCPCS: 36430; 86850; 86900; 86901; 86922; P9036; P9040; Q0163

== ENCOUNTER 2020-06-27 16:39 | Observation (INO) | payer BC ==
[2020-06-27] MEDS ORDERED: Acetaminophen 500 MG TAB PO SCH (17:00)
[2020-06-27] MEDS ORDERED: diphenhydrAMINE 25 MG CAP PO SCH (17:00)
[2020-06-27 20:55] VITALS: BP 110/57; TEMP 98.5
[2020-06-27 21:13] LABS: #Lymphocytes 0.4 thou/uL (1.20-3.40); #Monocytes 0.2 thou/uL (0.11-0.59); #Neutrophils 1.1 thou/uL (1.40-6.50); %Eosinophils 0.3 % (0.0-10.0); %Lymphocytes 25.3 % (21.0-51.0); %Monocytes 9.1 % (0.0-10.0); %Neutrophils 65.3 % (42.0-75.0); Hemoglobin 7.7 g/dL (14.0-18.0); Mean Corpuscular Hemoglobin 29.4 pg (27.0-31.0); Mean Corpuscular Volume 89.2 fL (78.0-98.0); Mean Platelet Volume 8.1 fL (7.4-10.4); Platelet Count 40 thou/uL (130-400); RBC Distribution Width 13.1 % (11.5-14.5); Red Blood Cell (RBC) Count 2.62 mill/uL (4.70-6.10); White Blood Cell (WBC) Count 1.7 thou/uL (4.8-10.8)
== END 2020-06-27 20:58 | disposition home or self-care (01) ==
LOC: ONC/OP 16:39 → ONC 16:54
PROVIDERS: ADMIT Internal Medicine Hematology & Oncology; ATTEND Internal Medicine Hematology & Oncology
PROC: 30233R1 Transfusion of Nonautologous Platelets into Peripheral Vein, Percutaneous Approach (ICD-10-PCS; principal; 2020-06-27)
DX: D69.6 Thrombocytopenia, unspecified (principal); D64.9 Anemia, unspecified; Z88.1 Allergy status to other antibiotic agents
CPT/HCPCS: 36415; 36430; 85025; 86850; 86900; 86901; P9036; Q0163

== ENCOUNTER 2020-06-30 08:41 | Inpatient (IN) | payer BC ==
[2020-06-30 11:55] VITALS: BMI 21.3
[2020-06-30] MEDS ORDERED: PALONOSETRON HCL 0.05 MG/ML 5 ML VIAL IVP SCH (12:15)
[2020-06-30] MEDS ORDERED: Sodium Chloride 0.9% 1,000 ML IV SCH (12:15)
[2020-06-30] MEDS ORDERED: FOSAPREPITANT DIMEGLUMINE IVPB SCH (12:15)
[2020-06-30] MEDS ORDERED: SODIUM CHLORIDE 0.9% IVPB SCH (12:15)
[2020-06-30] MEDS ORDERED: Ondansetron PF 4 MG/2 ML Vial IVP PRN (12:55)
[2020-06-30] MEDS ORDERED: Ondansetron ODT 4 MG TAB PO PRN (12:55)
[2020-06-30] MEDS ORDERED: HYDROcodone/Acetaminophen 10/325 mg Tablet PO PRN (12:59)
[2020-06-30] MEDS ORDERED: Prochlorperazine Maleate 5 MG TAB PO PRN (13:09)
[2020-06-30 13:26] LABS: #Lymphocytes 0.5 thou/uL (1.20-3.40); #Monocytes 0.1 thou/uL (0.11-0.59); %Basophils 0.4 % (0.0-1.0); %Eosinophils 0.8 % (0.0-10.0); %Monocytes 7.2 % (0.0-10.0); %Neutrophils 61.6 % (42.0-75.0); Hemoglobin 7.3 g/dL (14.0-18.0); Mean Corpuscular HGB CONC 33.2 g/dL (32.0-36.0); Mean Corpuscular Hemoglobin 29.5 pg (27.0-31.0); Mean Platelet Volume 9.8 fL (7.4-10.4); Platelet Count 14 thou/uL (130-400); RBC Distribution Width 13.6 % (11.5-14.5); Red Blood Cell (RBC) Count 2.44 mill/uL (4.70-6.10); White Blood Cell (WBC) Count 1.6 thou/uL (4.8-10.8)
[2020-06-30] MEDS: Sodium Chloride 0.9% 1,000 ML IV SCH (14:02)
[2020-06-30] MEDS: Dexamethasone Sod Phosphate 40 MG in Sodium Chloride 0.9% 50 ML IVPB SCH (15:07)
[2020-06-30] MEDS: Cyclophosphamide 0.6 GM in Sodium Chloride 0.9% 250 ML 250 ML IVPB SCH (16:09)
[2020-06-30] MEDS: Morphine ER 30 MG TAB PO SCH (20:10)
[2020-06-30] MEDS: Pregabalin 75 MG CAP PO SCH (20:10)
[2020-06-30] MEDS: Morphine ER 15 MG TAB PO SCH (20:11)
[2020-07-01] MEDS: Sodium Chloride 0.9% 1,000 ML IV SCH ×2 (01:58→13:39)
[2020-07-01] MEDS: Cyclophosphamide 0.6 GM in Sodium Chloride 0.9% 250 ML 250 ML IVPB SCH ×2 (04:17→15:53)
[2020-07-01] MEDS: Levothyroxine Sodium 75 MCG TAB PO SCH (05:28)
[2020-07-01 07:02] LABS: SARS-CoV-2 PCR by NAA Not Detected (NotDetected)
[2020-07-01 07:47] LABS: #Lymphocytes 0.4 thou/uL (1.20-3.40); #Monocytes 0.1 thou/uL (0.11-0.59); #Neutrophils 1.2 thou/uL (1.40-6.50); %Lymphocytes 23.1 % (21.0-51.0); %Monocytes 6.1 % (0.0-10.0); %Neutrophils 70.9 % (42.0-75.0); Hemoglobin 6.9 g/dL (14.0-18.0); Mean Corpuscular Hemoglobin 30.3 pg (27.0-31.0); Mean Corpuscular Volume 89.1 fL (78.0-98.0); Mean Platelet Volume 10.6 fL (7.4-10.4); Platelet Count 11 thou/uL (130-400); Red Blood Cell (RBC) Count 2.27 mill/uL (4.70-6.10); White Blood Cell (WBC) Count 1.7 thou/uL (4.8-10.8)
[2020-07-01 08:01] LABS: Anion Gap 15 mmol/L (10-20); BUN (Urea Nitrogen) 9 mg/dL (8.4-25.7); Calc. Creatinine Clearance 166 mL/min (70-130); Calcium 8.5 mg/dL (7.8-10.44); Carbon Dioxide 21 mmol/L (23-31); Chloride 102 mmol/L (98-107); Glucose 150 mg/dL (80-115); Potassium 4.4 mmol/L (3.5-5.1); Sodium 134 mmol/L (136-145)
[2020-07-01] MEDS: Montelukast Sodium 10 mg Tablet PO SCH (08:45)
[2020-07-01] MEDS: Citalopram 20 MG TAB PO SCH (08:45)
[2020-07-01] MEDS: Morphine ER 15 MG TAB PO SCH ×2 (08:45→20:06)
[2020-07-01] MEDS: Morphine ER 30 MG TAB PO SCH ×2 (08:46→20:06)
[2020-07-01] MEDS: Pregabalin 75 MG CAP PO SCH ×2 (08:46→20:47)
[2020-07-01] MEDS ORDERED: Ondansetron 2MG/ML MDV 10 MG in Sodium Chloride 0.9% 50 ML IVPB SCH (09:00)
[2020-07-01] MEDS ORDERED: Morphine IR Tab 15 MG TAB PO PRN (15:05)
[2020-07-01] MEDS: Dexamethasone Sod Phosphate 40 MG in Sodium Chloride 0.9% 50 ML IVPB SCH (15:17)
[2020-07-02] MEDS: Cyclophosphamide 0.6 GM in Sodium Chloride 0.9% 250 ML 250 ML IVPB SCH ×2 (04:40→16:05)
[2020-07-02] MEDS: Ondansetron 2MG/ML MDV 10 MG in Sodium Chloride 0.9% 50 ML IVPB SCH ×2 (05:53→14:05)
[2020-07-02] MEDS: Levothyroxine Sodium 75 MCG TAB PO SCH (05:53)
[2020-07-02] MEDS: Pregabalin 75 MG CAP PO SCH ×2 (08:29→20:22)
[2020-07-02] MEDS: Montelukast Sodium 10 mg Tablet PO SCH (08:29)
[2020-07-02] MEDS: Morphine ER 30 MG TAB PO SCH ×2 (08:30→20:23)
[2020-07-02] MEDS: Morphine ER 15 MG TAB PO SCH ×2 (08:30→20:22)
[2020-07-02] MEDS: Citalopram 20 MG TAB PO SCH (08:30)
[2020-07-02] MEDS ORDERED: Dexamethasone Sod Phosphate 40 MG in Sodium Chloride 0.9% 50 ML IVPB SCH (15:00)
[2020-07-03] MEDS ORDERED: Ondansetron 2MG/ML MDV 10 MG in Sodium Chloride 0.9% 50 ML IVPB SCH (00:45)
[2020-07-03] MEDS: Sodium Chloride 0.9% 1,000 ML IV SCH (01:49)
[2020-07-03] MEDS: Cyclophosphamide 0.6 GM in Sodium Chloride 0.9% 250 ML 250 ML IVPB SCH (04:25)
[2020-07-03] MEDS: Levothyroxine Sodium 75 MCG TAB PO SCH (05:33)
[2020-07-03 07:23] LABS: #Lymphocytes 0.2 thou/uL (1.20-3.40); #Neutrophils 1.8 thou/uL (1.40-6.50); %Eosinophils 0.3 % (0.0-10.0); %Lymphocytes 10.3 % (21.0-51.0); %Monocytes 1.4 % (0.0-10.0); Mean Corpuscular HGB CONC 34.6 g/dL (32.0-36.0); Mean Corpuscular Hemoglobin 30.8 pg (27.0-31.0); Mean Platelet Volume 12.7 fL (7.4-10.4); Platelet Count 6 thou/uL (130-400); White Blood Cell (WBC) Count 2.1 thou/uL (4.8-10.8)
[2020-07-03 07:41] LABS: ALT (SGPT) 14 U/L (8-55); AST (SGOT) 8 U/L (5-34); Albumin 2.7 g/dL (3.4-4.8); Alkaline Phosphatase 93 U/L (40-110); Anion Gap 14 mmol/L (10-20); BUN (Urea Nitrogen) 12 mg/dL (8.4-25.7); Bilirubin, Total 0.7 mg/dL (0.2-1.2); Calc. Creatinine Clearance 163 mL/min (70-130); Calcium 8.5 mg/dL (7.8-10.44); Carbon Dioxide 24 mmol/L (23-31); Chloride 102 mmol/L (98-107); Globulin 3.8 g/dL (2.4-3.5); Glucose 76 mg/dL (80-115); Potassium 3.7 mmol/L (3.5-5.1); Protein, Total 6.5 g/dL (5.8-8.1); Sodium 136 mmol/L (136-145); Uric Acid 4.1 mg/dL (3.5-7.2)
[2020-07-03] MEDS: Morphine ER 30 MG TAB PO SCH (09:59)
[2020-07-03] MEDS: Montelukast Sodium 10 mg Tablet PO SCH (10:00)
[2020-07-03] MEDS: Morphine ER 15 MG TAB PO SCH (10:00)
[2020-07-03] MEDS: Citalopram 20 MG TAB PO SCH (10:01)
[2020-07-03] MEDS: Pregabalin 75 MG CAP PO SCH (10:35)
[2020-07-03 12:32] LABS: Bilirubin Negative (Negative); Blood, Urine Negative (Negative); Clarity Clear (Clear); Glucose, Urine (Dipstick) Normal (Negative); Ketone, Urine Negative (Negative); Leukocyte Negative Leu/uL (Negative); Nitrite Negative (Negative); Protein, Urine (Dipstick) 20 mg/dL (Neg-Trace); Specific Gravity, Urine 1.018 (1.002-1.036); Urobilinogen Normal mg/dL (Less than 2); pH, Urine 6.5 (5.0-9.0)
[2020-07-03 18:00] VITALS: BP 143/67; TEMP 98.2
== END 2020-07-03 18:00 | disposition home or self-care (01) | DRG 846 ==
LOC: ONC 11:08
PROVIDERS: ADMIT Internal Medicine; ATTEND Internal Medicine
PROC: 3E03305 Introduction of Other Antineoplastic into Peripheral Vein, Percutaneous Approach (ICD-10-PCS; principal; 2020-06-30)
PROC: 30233N1 Transfusion of Nonautologous Red Blood Cells into Peripheral Vein, Percutaneous Approach (ICD-10-PCS; 2020-07-01)
PROC: 30233R1 Transfusion of Nonautologous Platelets into Peripheral Vein, Percutaneous Approach (ICD-10-PCS; 2020-07-03)
DX: Z51.11 Encounter for antineoplastic chemotherapy (principal); D61.810 Antineoplastic chemotherapy induced pancytopenia; C90.00 Multiple myeloma not having achieved remission; C79.51 Secondary malignant neoplasm of bone; G95.29 Other cord compression; D61.818 Other pancytopenia; Z20.822 Contact with and (suspected) exposure to COVID-19; E78.5 Hyperlipidemia, unspecified; E03.9 Hypothyroidism, unspecified; E78.00 Pure hypercholesterolemia, unspecified; Z90.79 Acquired absence of other genital organ(s); Z80.8 Family history of malignant neoplasm of other organs or systems; Z85.46 Personal history of malignant neoplasm of prostate; Z88.8 Allergy status to other drugs, medicaments and biological substances; Z79.899 Other long term (current) drug therapy; Z80.6 Family history of leukemia; T45.1X5A Adverse effect of antineoplastic and immunosuppressive drugs, initial encounter
CPT/HCPCS: 36415; 36430; 80048; 80053; 81003; 83615; 84550; 85025; 86850; 86900; 86901; 86922; 87635; J1100; J1453; J2405; J2469; J3490; J7050; J9070; P9036; P9040; Q0163; U0003; U0005

== ENCOUNTER 2020-07-04 15:35 | Day surgery (SDC) | payer BC ==
[2020-07-04] MEDS ORDERED: diphenhydrAMINE 25 MG CAP PO SCH (16:00)
[2020-07-04] MEDS ORDERED: Acetaminophen 500 MG TAB PO SCH (16:00)
[2020-07-04 20:35] VITALS: BP 110/64; TEMP 97.8
[2020-07-04 21:01] LABS: #Lymphocytes 0.1 thou/uL (1.20-3.40); #Neutrophils 2.1 thou/uL (1.40-6.50); %Eosinophils 0.2 % (0.0-10.0); %Lymphocytes 3.5 % (21.0-51.0); %Monocytes 0.6 % (0.0-10.0); %Neutrophils 95.8 % (42.0-75.0); Hemoglobin 8.1 g/dL (14.0-18.0); Mean Corpuscular Hemoglobin 31.1 pg (27.0-31.0); Mean Platelet Volume 7.7 fL (7.4-10.4); Platelet Count 31 thou/uL (130-400); RBC Distribution Width 13.7 % (11.5-14.5); White Blood Cell (WBC) Count 2.2 thou/uL (4.8-10.8)
== END 2020-07-04 20:40 | disposition home or self-care (01) ==
LOC: ONC/OP 15:35 → ONC 15:37 → ONC/OP 20:40
PROVIDERS: ATTEND Internal Medicine Hematology & Oncology
PROC: 30233N1 Transfusion of Nonautologous Red Blood Cells into Peripheral Vein, Percutaneous Approach (ICD-10-PCS; principal; 2020-07-04)
DX: D64.9 Anemia, unspecified (principal); D69.6 Thrombocytopenia, unspecified; Z88.1 Allergy status to other antibiotic agents
CPT/HCPCS: 36415; 36430; 85025; 86850; 86900; 86901; 86922; P9040; Q0163

== ENCOUNTER 2020-07-08 08:29 | Day surgery (SDC) | payer BC ==
[2020-07-08] MEDS ORDERED: Acetaminophen 500 MG TAB PO PRN (09:12)
[2020-07-08] MEDS ORDERED: diphenhydrAMINE 25 MG CAP PO PRN (09:12)
[2020-07-08 09:18] VITALS: TEMP 98.5
[2020-07-08 10:14] VITALS: BP 99/65
== END 2020-07-08 14:39 | disposition home or self-care (01) ==
LOC: ONC/OP 08:29
PROVIDERS: ATTEND Internal Medicine Hematology & Oncology
DX: D69.6 Thrombocytopenia, unspecified (principal); D64.9 Anemia, unspecified; Z88.1 Allergy status to other antibiotic agents
CPT/HCPCS: 36430; 86850; 86900; 86901; 86922; P9036; P9040; Q0163

== ENCOUNTER 2020-07-15 08:58 | Day surgery (SDC) | payer BC ==
[2020-07-15] MEDS ORDERED: Sodium Chloride 0.9% 20 ML ONE (09:09)
[2020-07-15] MEDS ORDERED: Acetaminophen 500 MG TAB PO PRN (09:16)
[2020-07-15] MEDS ORDERED: diphenhydrAMINE 25 MG CAP PO PRN (09:16)
[2020-07-15 15:33] VITALS: BP 111/68; TEMP 97.8
== END 2020-07-15 15:34 | disposition home or self-care (01) ==
LOC: ONC/OP 08:58
PROVIDERS: ATTEND Internal Medicine Hematology & Oncology
PROC: 30233N1 Transfusion of Nonautologous Red Blood Cells into Peripheral Vein, Percutaneous Approach (ICD-10-PCS; principal; 2020-07-15)
PROC: 30233R1 Transfusion of Nonautologous Platelets into Peripheral Vein, Percutaneous Approach (ICD-10-PCS; principal; 2020-07-15)
DX: D64.9 Anemia, unspecified (principal); D69.6 Thrombocytopenia, unspecified; Z88.1 Allergy status to other antibiotic agents
CPT/HCPCS: 36430; 86850; 86900; 86901; 86922; P9036; P9040; Q0163

== ENCOUNTER 2020-07-20 08:23 | Day surgery (SDC) | payer BC ==
[2020-07-20] MEDS ORDERED: diphenhydrAMINE 25 MG CAP PO SCH (08:45)
[2020-07-20] MEDS ORDERED: Acetaminophen 500 MG TAB PO SCH (08:45)
[2020-07-20 09:37] VITALS: BP 99/63
[2020-07-20 15:38] VITALS: TEMP 97.8
[2020-07-20 17:12] LABS: Hemoglobin 8.1 g/dL (14.0-18.0); Mean Corpuscular Hemoglobin 29.6 pg (27.0-31.0); Mean Corpuscular Volume 84.6 fL (78.0-98.0); Mean Platelet Volume 9.1 fL (7.4-10.4); Platelet Count 32 thou/uL (130-400); RBC Distribution Width 15.9 % (11.5-14.5); Red Blood Cell (RBC) Count 2.73 mill/uL (4.70-6.10); White Blood Cell (WBC) Count 4.1 thou/uL (4.8-10.8)
== END 2020-07-20 17:10 | disposition home or self-care (01) ==
LOC: ONC/OP 08:23 → ONC 08:32 → ONC/OP 17:10
PROVIDERS: ATTEND Internal Medicine Hematology & Oncology
PROC: 30233N1 Transfusion of Nonautologous Red Blood Cells into Peripheral Vein, Percutaneous Approach (ICD-10-PCS; principal; 2020-07-20)
DX: D64.9 Anemia, unspecified (principal); D69.6 Thrombocytopenia, unspecified; Z88.1 Allergy status to other antibiotic agents
CPT/HCPCS: 36415; 36430; 85027; 86850; 86900; 86901; 86922; P9036; P9040; Q0163

== ENCOUNTER 2020-07-25 11:03 | Day surgery (SDC) | payer BC ==
[2020-07-25] MEDS ORDERED: Acetaminophen 500 MG TAB PO SCH (11:15)
[2020-07-25] MEDS ORDERED: diphenhydrAMINE 25 MG CAP PO SCH (11:15)
[2020-07-25] MEDS ORDERED: Sodium Chloride 0.9% 20 ML ONE (11:31)
[2020-07-25 15:07] VITALS: BP 103/65; TEMP 98.5
== END 2020-07-25 15:07 | disposition home or self-care (01) ==
LOC: ONC/OP 11:03
PROVIDERS: ATTEND Internal Medicine Hematology & Oncology
PROC: 30233N1 Transfusion of Nonautologous Red Blood Cells into Peripheral Vein, Percutaneous Approach (ICD-10-PCS; principal; 2020-07-25)
DX: D64.9 Anemia, unspecified (principal); D69.6 Thrombocytopenia, unspecified; Z88.1 Allergy status to other antibiotic agents
CPT/HCPCS: 36430; 86850; 86900; 86901; 86922; P9040; Q0163

== ENCOUNTER 2020-08-12 09:25 | Inpatient (IN) | payer BC ==
[2020-08-12 12:33] VITALS: BMI 22.8
[2020-08-12] MEDS ORDERED: FOSAPREPITANT DIMEGLUMINE IVPB SCH (13:00)
[2020-08-12] MEDS ORDERED: SODIUM CHLORIDE 0.9% IVPB SCH (13:00)
[2020-08-12] MEDS ORDERED: Dexamethasone Sod Phosphate 40 MG in Sodium Chloride 0.9% 50 ML IVPB SCH (13:00)
[2020-08-12] MEDS ORDERED: PALONOSETRON HCL 0.05 MG/ML 5 ML VIAL IVP SCH (13:00)
[2020-08-12] MEDS ORDERED: Sodium Chloride 0.9% 1,000 ML IV SCH ×2 (13:00→15:15)
[2020-08-12] MEDS ORDERED: Loperamide HCl 2 MG CAP PO PRN ×2 (13:07)
[2020-08-12] MEDS ORDERED: HYDROcodone/Acetaminophen 10/325 mg Tablet PO PRN (13:07)
[2020-08-12] MEDS ORDERED: HYDROcodone/Acetaminophen 5/325 mg Tablet PO PRN (13:07)
[2020-08-12] MEDS ORDERED: Bisacodyl 10 MG SUPP PR PRN (13:07)
[2020-08-12] MEDS ORDERED: Acetaminophen 325 MG TAB PO PRN (13:07)
[2020-08-12] MEDS ORDERED: Bisacodyl 5 MG TAB PO PRN (13:07)
[2020-08-12] MEDS ORDERED: Ondansetron ODT 4 MG TAB PO PRN (13:07)
[2020-08-12 15:30] LABS: Hemoglobin 8.2 g/dL (14.0-18.0); Mean Corpuscular HGB CONC 33.8 g/dL (32.0-36.0); Mean Corpuscular Hemoglobin 31.2 pg (27.0-31.0); Mean Corpuscular Volume 92.3 fL (78.0-98.0); Mean Platelet Volume 13.2 fL (7.4-10.4); Platelet Count 27 thou/uL (130-400); RBC Distribution Width 21.1 % (11.5-14.5); Red Blood Cell (RBC) Count 2.62 mill/uL (4.70-6.10); White Blood Cell (WBC) Count 5.2 thou/uL (4.8-10.8)
[2020-08-12 15:50] LABS: Anion Gap 17 mmol/L (10-20); BUN (Urea Nitrogen) 12 mg/dL (8.4-25.7); Calc. Creatinine Clearance 139 mL/min (70-130); Calcium 9.1 mg/dL (7.8-10.44); Carbon Dioxide 20 mmol/L (23-31); Chloride 98 mmol/L (98-107); Glucose 77 mg/dL (80-115); Potassium 4.4 mmol/L (3.5-5.1); Sodium 131 mmol/L (136-145); Uric Acid 4.9 mg/dL (3.5-7.2)
[2020-08-12] MEDS: Cyclophosphamide 0.6 GM in Sodium Chloride 0.9% 250 ML 250 ML IVPB SCH (15:55)
[2020-08-12 16:01] LABS: Anisocytosis MODERATE=16-30 cells (100X) (0-5/hpf); Band 6 % (5-11); Eosinophils 2 % (0-10); Lymphocytes 21 % (21-51); MDiff Complete? YES; Metamyelocyte 1 % (0-0); Monocytes 8 % (0-10); Myelocyte 3 % (0-0); Neutrophil 59 % (42-75); Ovalocytes SLIGHT = 2-5 cells (100X) (0-1/hpf); Platelet Morphology Comment Appears Decreased; Polychromasia MODERATE = 3-4 cells (100X) (0-2/hpf)
[2020-08-12] MEDS ORDERED: Prochlorperazine Maleate 5 MG TAB PO PRN (19:20)
[2020-08-12] MEDS: Pregabalin 75 MG CAP PO SCH (20:16)
[2020-08-12] MEDS: Morphine ER 30 MG TAB PO SCH (20:18)
[2020-08-12] MEDS: Morphine ER 15 MG TAB PO SCH (20:19)
[2020-08-12] MEDS ORDERED: MORPHINE SULFATE 60 MG PO SCH (21:00)
[2020-08-12] MEDS ORDERED: Pregabalin 75 MG CAP PO SCH (21:00)
[2020-08-12] MEDS ORDERED: Famotidine 20 MG TAB PO SCH (21:00)
[2020-08-13 00:45] LABS: SARS-CoV-2 NAA Rapid Test Not Detected (NotDetected)
[2020-08-13] MEDS: Sodium Chloride 0.9% 1,000 ML IV SCH ×3 (01:59→15:48)
[2020-08-13] MEDS: Cyclophosphamide 0.6 GM in Sodium Chloride 0.9% 250 ML 250 ML IVPB SCH ×2 (03:45→15:48)
[2020-08-13] MEDS: Levothyroxine Sodium 75 MCG TAB PO SCH (05:10)
[2020-08-13 06:15] LABS: Anion Gap 20 mmol/L (10-20); BUN (Urea Nitrogen) 14 mg/dL (8.4-25.7); Calc. Creatinine Clearance 134 mL/min (70-130); Calcium 8.3 mg/dL (7.8-10.44); Carbon Dioxide 14 mmol/L (23-31); Chloride 103 mmol/L (98-107); Glucose 107 mg/dL (80-115); Potassium 5.1 mmol/L (3.5-5.1); Sodium 132 mmol/L (136-145); Uric Acid 6.1 mg/dL (3.5-7.2)
[2020-08-13] MEDS: Morphine IR Tab 15 MG TAB PO PRN ×2 (07:32→19:09)
[2020-08-13] MEDS: Montelukast Sodium 10 mg Tablet PO SCH (08:23)
[2020-08-13] MEDS: Morphine ER 30 MG TAB PO SCH ×2 (08:23→20:27)
[2020-08-13] MEDS: Citalopram 20 MG TAB PO SCH (08:23)
[2020-08-13] MEDS: Pregabalin 75 MG CAP PO SCH ×2 (08:23→20:26)
[2020-08-13] MEDS: Morphine ER 15 MG TAB PO SCH ×2 (08:24→20:26)
[2020-08-13] MEDS: Lisinopril 10 MG TAB PO SCH (08:26)
[2020-08-13 09:58] LABS: Hemoglobin 8.3 g/dL (14.0-18.0); Mean Corpuscular HGB CONC 33.1 g/dL (32.0-36.0); Mean Corpuscular Hemoglobin 30.8 pg (27.0-31.0); Mean Corpuscular Volume 93.1 fL (78.0-98.0); Platelet Count 26 thou/uL (130-400); RBC Distribution Width 21.2 % (11.5-14.5); Red Blood Cell (RBC) Count 2.68 mill/uL (4.70-6.10); White Blood Cell (WBC) Count 7.3 thou/uL (4.8-10.8)
[2020-08-13 11:34] LABS: Band 5 % (5-11); Lymphocytes 15 % (21-51); MDiff Complete? YES; Metamyelocyte 3 % (0-0); Monocytes 11 % (0-10); Myelocyte 3 % (0-0); Neutrophil 63 % (42-75); Platelet Morphology Comment Appears Decreased; Polychromasia SLIGHT = 2-3 cells (100X) (0-2/hpf)
[2020-08-13] MEDS: DEXAMETHASONE SOD PHOSPHATE IVPB SCH (14:46)
[2020-08-13] MEDS: [UNRECOGNIZED DRUG - OTHER] IVPB SCH (14:46)
[2020-08-13] MEDS: ONDANSETRON IVPB SCH (14:46)
[2020-08-14] MEDS: Morphine IR Tab 15 MG TAB PO PRN ×2 (01:40→08:05)
[2020-08-14] MEDS: Ondansetron HCl/PF 10 MG in Sodium Chloride 0.9% 50 ML IVPB SCH (01:42)
[2020-08-14] MEDS: Sodium Chloride 0.9% 1,000 ML IV SCH ×2 (02:17→13:18)
[2020-08-14] MEDS: Cyclophosphamide 0.6 GM in Sodium Chloride 0.9% 250 ML 250 ML IVPB SCH ×2 (03:19→16:10)
[2020-08-14] MEDS: Levothyroxine Sodium 75 MCG TAB PO SCH (04:30)
[2020-08-14 06:41] LABS: Platelet Count 18 thou/uL (130-400)
[2020-08-14 06:55] LABS: Band 5 % (5-11); Hemoglobin 7.1 g/dL (14.0-18.0); Lymphocytes 3 % (21-51); MDiff Complete? YES; Mean Corpuscular HGB CONC 32.6 g/dL (32.0-36.0); Mean Corpuscular Hemoglobin 30.5 pg (27.0-31.0); Mean Corpuscular Volume 93.4 fL (78.0-98.0); Mean Platelet Volume 13.5 fL (7.4-10.4); Metamyelocyte 1 % (0-0); Monocytes 11 % (0-10); Neutrophil 80 % (42-75); Platelet Morphology Comment Appears Decreased; RBC Distribution Width 21.2 % (11.5-14.5); Red Blood Cell (RBC) Count 2.34 mill/uL (4.70-6.10); White Blood Cell (WBC) Count 5.3 thou/uL (4.8-10.8)
[2020-08-14 07:02] LABS: Anion Gap 17 mmol/L (10-20); BUN (Urea Nitrogen) 13 mg/dL (8.4-25.7); Calc. Creatinine Clearance 139 mL/min (70-130); Carbon Dioxide 18 mmol/L (23-31); Chloride 99 mmol/L (98-107); Glucose 107 mg/dL (80-115); Sodium 130 mmol/L (136-145)
[2020-08-14] MEDS: Lisinopril 10 MG TAB PO SCH (07:56)
[2020-08-14] MEDS: Pregabalin 75 MG CAP PO SCH ×2 (08:00→20:24)
[2020-08-14] MEDS: Morphine ER 30 MG TAB PO SCH ×2 (08:00→20:24)
[2020-08-14] MEDS: Montelukast Sodium 10 mg Tablet PO SCH (08:01)
[2020-08-14] MEDS: Citalopram 20 MG TAB PO SCH (08:01)
[2020-08-14] MEDS: Morphine ER 15 MG TAB PO SCH ×2 (08:01→20:21)
[2020-08-14] MEDS ORDERED: Magnevist 469MG/ML 20 ML VIAL ONE ×2 (09:35)
[2020-08-14] MEDS: ONDANSETRON IVPB SCH (14:58)
[2020-08-14] MEDS: [UNRECOGNIZED DRUG - OTHER] IVPB SCH (14:58)
[2020-08-14] MEDS: DEXAMETHASONE SOD PHOSPHATE IVPB SCH (14:58)
[2020-08-15] MEDS: Ondansetron HCl/PF 10 MG in Sodium Chloride 0.9% 50 ML IVPB SCH (01:55)
[2020-08-15] MEDS: Sodium Chloride 0.9% 1,000 ML IV SCH ×2 (02:30→13:42)
[2020-08-15] MEDS: Cyclophosphamide 0.6 GM in Sodium Chloride 0.9% 250 ML 250 ML IVPB SCH (03:31)
[2020-08-15 04:46] LABS: Hemoglobin 7.8 g/dL (14.0-18.0); Mean Corpuscular HGB CONC 33.8 g/dL (32.0-36.0); Mean Corpuscular Hemoglobin 31.6 pg (27.0-31.0); Mean Corpuscular Volume 93.5 fL (78.0-98.0); Mean Platelet Volume 12.5 fL (7.4-10.4); Platelet Count 16 thou/uL (130-400); RBC Distribution Width 20.4 % (11.5-14.5); Red Blood Cell (RBC) Count 2.47 mill/uL (4.70-6.10)
[2020-08-15 05:04] LABS: Anion Gap 13 mmol/L (10-20); BUN (Urea Nitrogen) 13 mg/dL (8.4-25.7); Calc. Creatinine Clearance 165 mL/min (70-130); Calcium 7.8 mg/dL (7.8-10.44); Carbon Dioxide 21 mmol/L (23-31); Chloride 107 mmol/L (98-107); Glucose 109 mg/dL (80-115); Potassium 3.7 mmol/L (3.5-5.1); Sodium 137 mmol/L (136-145); Uric Acid 5.5 mg/dL (3.5-7.2)
[2020-08-15 05:38] LABS: Anisocytosis SLIGHT = 6-15 cells (100X) (0-5/hpf); Band 15 % (5-11); Lymphocytes 4 % (21-51); MDiff Complete? YES; Monocytes 3 % (0-10); Neutrophil 78 % (42-75); Platelet Morphology Comment Appears Decreased
[2020-08-15] MEDS: Levothyroxine Sodium 75 MCG TAB PO SCH (05:57)
[2020-08-15] MEDS: Morphine IR Tab 15 MG TAB PO PRN (06:00)
[2020-08-15] MEDS: Montelukast Sodium 10 mg Tablet PO SCH (08:25)
[2020-08-15] MEDS: Morphine ER 15 MG TAB PO SCH (08:25)
[2020-08-15] MEDS: Pregabalin 75 MG CAP PO SCH (08:25)
[2020-08-15] MEDS: Morphine ER 30 MG TAB PO SCH (08:26)
[2020-08-15] MEDS: Lisinopril 10 MG TAB PO SCH (08:27)
[2020-08-15] MEDS: Citalopram 20 MG TAB PO SCH (08:27)
[2020-08-15 14:16] VITALS: BP 104/59; TEMP 99.7
== END 2020-08-15 14:20 | disposition home or self-care (01) | DRG 840 ==
LOC: ONC 11:28
PROVIDERS: ADMIT Family Medicine; ATTEND Internal Medicine
PROC: 3E03305 Introduction of Other Antineoplastic into Peripheral Vein, Percutaneous Approach (ICD-10-PCS; principal; 2020-08-12)
PROC: 30233N1 Transfusion of Nonautologous Red Blood Cells into Peripheral Vein, Percutaneous Approach (ICD-10-PCS; 2020-08-14)
PROC: 30233R1 Transfusion of Nonautologous Platelets into Peripheral Vein, Percutaneous Approach (ICD-10-PCS; 2020-08-15)
DX: C90.00 Multiple myeloma not having achieved remission (principal); D61.810 Antineoplastic chemotherapy induced pancytopenia; C79.51 Secondary malignant neoplasm of bone; Z20.822 Contact with and (suspected) exposure to COVID-19; E78.2 Mixed hyperlipidemia; I10 Essential (primary) hypertension; E03.9 Hypothyroidism, unspecified; E78.00 Pure hypercholesterolemia, unspecified; G89.29 Other chronic pain; M25.512 Pain in left shoulder; M25.511 Pain in right shoulder; Z88.8 Allergy status to other drugs, medicaments and biological substances; Z79.899 Other long term (current) drug therapy; Z85.46 Personal history of malignant neoplasm of prostate; Z90.79 Acquired absence of other genital organ(s)
CPT/HCPCS: 36415; 36430; 72157; 72158; 80048; 83615; 84550; 85025; 86850; 86900; 86901; 86922; A9579; J1100; J1453; J2405; J2469; J3490; J7050; J9070; P9036; P9040; U0002; U0005

== ENCOUNTER 2020-08-21 09:45 | Day surgery (SDC) | payer BC ==
[2020-08-21] MEDS ORDERED: Acetaminophen 500 MG TAB PO SCH (10:15)
[2020-08-21] MEDS ORDERED: diphenhydrAMINE 25 MG CAP PO SCH (10:15)
[2020-08-21 16:29] VITALS: BP 105/60; TEMP 98.2
== END 2020-08-21 16:30 | disposition home or self-care (01) ==
LOC: ONC/OP 09:45
PROVIDERS: ATTEND Internal Medicine Hematology & Oncology
PROC: 30233R1 Transfusion of Nonautologous Platelets into Peripheral Vein, Percutaneous Approach (ICD-10-PCS; principal; 2020-08-21)
PROC: 30233N1 Transfusion of Nonautologous Red Blood Cells into Peripheral Vein, Percutaneous Approach (ICD-10-PCS; principal; 2020-08-21)
DX: D69.6 Thrombocytopenia, unspecified (principal); D64.9 Anemia, unspecified; Z88.1 Allergy status to other antibiotic agents
CPT/HCPCS: 36430; 86850; 86900; 86901; 86922; P9036; P9040; Q0163

== ENCOUNTER 2020-08-26 09:22 | Day surgery (SDC) | payer BC ==
[2020-08-26] MEDS ORDERED: diphenhydrAMINE 25 MG CAP PO PRN (09:28)
[2020-08-26] MEDS ORDERED: Acetaminophen 500 MG TAB PO PRN (09:28)
[2020-08-26] MEDS ORDERED: Sodium Chloride 0.9% 20 ML ONE (09:48)
[2020-08-26 11:00] VITALS: BP 95/52; TEMP 98.5
== END 2020-08-26 13:09 | disposition home or self-care (01) ==
LOC: ONC/OP 09:22
PROVIDERS: ATTEND Internal Medicine Hematology & Oncology
DX: D64.9 Anemia, unspecified (principal); D69.6 Thrombocytopenia, unspecified; Z88.1 Allergy status to other antibiotic agents
CPT/HCPCS: 36430; 86850; 86900; 86901; 86922; P9040; Q0163

== ENCOUNTER 2020-08-29 09:17 | Day surgery (SDC) | payer BC ==
[2020-08-29] MEDS ORDERED: Acetaminophen 500 MG TAB PO PRN (09:30)
[2020-08-29] MEDS ORDERED: diphenhydrAMINE 25 MG CAP PO PRN (09:31)
[2020-08-29] MEDS ORDERED: Sodium Chloride 0.9% 20 ML ONE (09:34)
[2020-08-29 15:08] VITALS: BP 94/64; TEMP 98.1
== END 2020-08-29 11:54 | disposition home or self-care (01) ==
LOC: ONC/OP 09:17
PROVIDERS: ATTEND Internal Medicine Hematology & Oncology
PROC: 30233R1 Transfusion of Nonautologous Platelets into Peripheral Vein, Percutaneous Approach (ICD-10-PCS; principal; 2020-08-29)
DX: D69.6 Thrombocytopenia, unspecified (principal); D64.9 Anemia, unspecified; Z88.1 Allergy status to other antibiotic agents
CPT/HCPCS: 36430; 86850; 86900; 86901; P9036; Q0163

== ENCOUNTER 2020-09-17 08:44 | Day surgery (SDC) | payer BC ==
[2020-09-17] MEDS ORDERED: Sodium Chloride 0.9% 20 ML ONE (09:05)
[2020-09-17 15:20] VITALS: BP 107/62; TEMP 98.1
== END 2020-09-17 15:22 | disposition home or self-care (01) ==
LOC: ONC/OP 08:44
PROVIDERS: ATTEND Internal Medicine Hematology & Oncology
PROC: 30233N1 Transfusion of Nonautologous Red Blood Cells into Peripheral Vein, Percutaneous Approach (ICD-10-PCS; principal; 2020-09-17)
DX: D64.9 Anemia, unspecified (principal); D69.6 Thrombocytopenia, unspecified; Z88.1 Allergy status to other antibiotic agents
CPT/HCPCS: 36430; 86850; 86900; 86901; 86922; P9040

== ENCOUNTER 2020-09-22 12:48 | Outpatient (CLI) | payer BC ==
[2020-09-22] MEDS ORDERED: Non-Formulary Item 1 EACH (Ondansetron Hcl [Zofran] 4 MG Tab) PO PRN (15:54)
[2020-09-22] MEDS ORDERED: Non-Formulary Item 1 EACH (Prochlorperazine Maleate [Compazine] 10 MG Tab) PO PRN (15:54)
[2020-09-22] MEDS ORDERED: Dextrose 5% in Water 1,000 ML IV PRN (15:56)
[2020-09-22] MEDS ORDERED: Dextrose 50% Abboject 50 ML SYRINGE SLOW IVP PRN (15:56)
[2020-09-22] MEDS ORDERED: Famotidine 20 MG TAB PO SCH (21:00)
[2020-09-22] MEDS ORDERED: Senokot S 8.6-50 MG TAB PO SCH (21:00)
[2020-09-22] MEDS ORDERED: MORPHINE SULFATE 60 MG PO SCH (21:00)
[2020-09-22] MEDS ORDERED: Non-Formulary Item 1 EACH (Pregabalin [Pregabalin] 300 MG Capsule) PO SCH (21:00)
[2020-09-23] MEDS ORDERED: Non-Formulary Item 1 EACH (Megestrol Acetate [Megestrol Acetate] 400 MG/10 ML Oral.Susp) PO SCH (09:00)
[2020-09-23] MEDS ORDERED: Montelukast Sodium 10 mg Tablet PO SCH (09:00)
[2020-09-23] MEDS ORDERED: Levothyroxine Sodium 75 MCG TAB PO SCH (09:00)
[2020-09-23] MEDS ORDERED: Polyethylene Glycol 3350 17 GM Packet PO SCH (09:00)
[2020-09-23] MEDS ORDERED: Citalopram 20 MG TAB PO SCH (09:00)
== END 2020-09-22 12:49 | disposition home or self-care (01) ==
LOC: CT 12:48
PROVIDERS: ATTEND Internal Medicine Hematology & Oncology
DX: C90.00 Multiple myeloma not having achieved remission (principal); D69.6 Thrombocytopenia, unspecified; C61 Malignant neoplasm of prostate; C79.51 Secondary malignant neoplasm of bone; I62.00 Nontraumatic subdural hemorrhage, unspecified; G93.89 Other specified disorders of brain; R41.82 Altered mental status, unspecified
CPT/HCPCS: 70450; 82533